=== PATIENT | female | born 1935 | race Caucasian/White ===

== ENCOUNTER 2018-05-04 17:14 | Emergency (ER) | payer OTHER ==
[2018-05-04 17:47] LABS: Absolute Monocytes 0.4 K/uL (0.1-1.3); Absolute Neutrophil 4.3 K/uL (1.8-8.0); Eosinophils % 2.7 % (0-4.4); Hematocrit 37.6 % (36.0-45.0); Lymphocytes % 17.4 % (15.3-44.8); MCH 29.3 pg (27.0-35.0); MPV 9.1 fL (7.6-11.3); Monocytes % 7.5 % (3.3-12.3); RBC Red Blood Cell Count 4.27 M/uL (3.86-4.86)
[2018-05-04] MEDS ORDERED: PHENYLEPHRINE 0.5% NOSE 15ML NAS ONE (17:49)
[2018-05-04 17:51] LABS: Protime INR 1.63
[2018-05-04] MEDS ORDERED: NA CHLORIDE 0.9% 0 ML ONE (17:58)
[2018-05-04] MEDS ORDERED: NA CHLORIDE 0.9% 500 ML ONE (17:59)
[2018-05-04 18:06] LABS: ALT/SGPT 42 U/L (12-78); AST/SGOT 51 U/L (15-37); Albumin 3.4 g/dL (3.4-5.0); Alkaline Phosphatase 122 U/L (45-117); BUN Blood Urea Nitrogen 16 mg/dL (7-18); Bicarbonate 28 mmol/L (21-32); Bilirubin Direct 0.2 mg/dL (0-0.2); Bilirubin Total 0.4 mg/dL (0.2-1.0); Glucose Level 148 mg/dL (74-106); Magnesium 2.4 mg/dL (1.8-2.4); NT PRO-BNP 614 pg/mL (<450); Potassium 3.5 mmol/L (3.5-5.1); Protein, Total 7.8 g/dL (6.4-8.2); Sodium Level 140 mmol/L (136-145); Troponin I < 0.02 ng/mL (0.0-0.045)
--- NOTE | 2018-05-04 18:27 | RAD REPORT ---
EXAM DESCRIPTION: RAD - Chest Single View - 05/04/2018 6:17 pm CLINICAL HISTORY: nose bleed Chest pain. COMPARISON: No comparisons FINDINGS: Portable technique limits examination quality. Mild interstitial pulmonary edema noted. The heart is moderately enlarged in size. No displaced fract ures. IMPRESSION: Mild CHF suspected.
--- NOTE | 2018-05-04 19:20 | ER ---
Nurse's Notes [facility] Name: Ashtyn Nichole Age: 82 yrs Sex: Female : 1935 Arrival Date: 05/04/2018 Time: 17:17 Bed 26 Private MD: Diagnosis: Epistaxis Presentation: 05/04 17:18 Presenting complaint: EMS states: patient has been having nose bleeds on and off all kr2 day, there was no trauma, blood pressure has been elevated. She takes Warfarin and this happened one year ago and she had to be transferred to [facility]. Transition of care: [facility]. Onset of symptoms was May 04, 2018. Risk Assessment: Do you want to hurt yourself or someone else? Patient reports no desire to harm self or others. Initial Sepsis Screen: Does the patient meet any 2 criteria? No. Patient's initial sepsis screen is negative. Does the patient have a suspected source of infection? No. Patient's initial sepsis screen is negative. Care prior to arrival: pressure applied to bridge of nose, bleeding continues. 17:18 Method Of Arrival: EMS: [facility] kr2 17:18 Acuity: CARL 3 kr2 Triage Assessment: 17:32 General: Appears in no apparent distress. uncomfortable, well groomed, well developed, kr2 well nourished, Behavior is calm, cooperative, appropriate for age. Pain: Denies pain. Historical: - Allergies: 17:32 No Known Allergies; kr2 - Home Meds: 17:32 amiodarone 200 mg Oral tab 1 tab 2 times per day [Active]; idjopre-xzcwhewwl-iauh oral kr2 tab [Active]; estradiol 0.5 mg Oral tab 1 tab once daily [Active]; fluoxetine 20 mg Oral cap 1 cap once daily [Active]; furosemide 40 mg Oral tab 1 tab once daily [Active]; hydrocodone-acetaminophen 7.5-325 mg Oral tab three times a day [Active]; metoprolol tartrate 50 mg Oral tab 1 tab 2 times per day [Active]; warfarin 3 mg Oral tab one every other day, alternationg with 1.5mg tablet [Active]; alprazolam 0.5 mg Oral tab three times a day [Active]; meclizine 25 mg Oral tab 1 tab 3 times per day [Active]; - PMHx: 17:32 Hypertension; Atrial Fib; Depression; Anxiety; Arthritis; CHF; kr2 - PSHx: 17:32 Hysterectomy; kr2 - Immunization history:: Adult Immunizations up to date. - Social history:: Smoking status: Patient/guardian denies using tobacco. - Ebola Screening: : No symptoms or risks identified at this time. Screenin:36 Abuse screen: Denies threats or abuse. Denies injuries from another. Nutritional kr2 screening: No deficits noted. Tuberculosis screening: No symptoms or risk factors identified. Fall Risk Ambulatory Aid- Crutches/Cane/Walker (15 pts). Assessment: 17:57 General: Appears in no apparent distress. comfortable, Behavior is calm, cooperative. rv Pain: Denies pain. Neuro: Level of Consciousness is awake, alert, obeys commands, Oriented to person, place, time, situation. Cardiovascular: Capillary refill < 3 seconds. Respiratory: Airway is patent. GI: No signs and/or symptoms were reported involving the gastrointestinal system. : No signs and/or symptoms were reported regarding the genitourinary system. EENT: Nares with bleeding noted bilaterally. Derm: Skin is intact. Musculoskeletal: No signs and/or symptoms reported regarding the musculoskeletal system. 19:00 Reassessment: Patient appears in no apparent distress at this time. Patient and/or rv family updated on plan of care and expected duration. Pain level reassessed. Patient is alert, oriented x 3, equal unlabored respirations, skin warm/dry/pink. Bleeding controlled Patient denies pain at this time. 20:03 Reassessment: Patient appears in no apparent distress at this time. Patient and/or rv family updated on plan of care and expected duration. Pain level reassessed. Patient is alert, oriented x 3, equal unlabored respirations, skin warm/dry/pink. No further bleeding from nose. Called [facility] they are making arrangements for someone to pick patient up. Vital Signs: 17:23 BP 191 / 67; Pulse 64; Resp 90; Temp 97.9; Pulse Ox 90% on R/A; Weight 53.07 kg; Height kr2 5 ft. 5 in. (165.10 cm); Pain 0/10; 17:58 BP 139 / 57; Pulse 58; Resp 17; Pulse Ox 95% on R/A; rv 19:00 BP 148 / 70; Pulse 70; Resp 15; Pulse Ox 97% on R/A; rv 20:05 BP 156 / 64; Pulse 60; Resp 17; Pulse Ox 97% on R/A; rv 17:23 Body Mass Index 19.47 (53.07 kg, 165.10 cm) kr2 ED Course: 17:17 Patient arrived in ED. kr2 17:23 Triage completed. kr2 17:24 Lucian Vasquez PA is PHCP. cp 17:24 Brian Rossi MD is Attending Physician. cp 17:37 Arm band placed on. kr2 17:37 Patient has correct armband on for positive identification. Bed in low position. Call kr2 light in reach. Side rails up X2. cardiac monitor technician on. Pulse ox on. NIBP on. Door closed. Warm blanket given. Pillow given. Head of bed elevated. 18:10 X-ray completed. Portable x-ray completed in exam room. Patient tolerated procedure kp1 well. 18:18 Chest Single View In Process Unspecified. EDMS 18:55 Urine collected: clean catch specimen, clear, hiren colored, Amount Voided: 120mL. jp3 19:18 Vandana Cantu MD is Referral Physician. cp 20:12 No provider procedures requiring assistance completed. IV discontinued, intact, kr2 bleeding controlled, No redness/swelling at site. Pressure dressing applied. Administered Medications: 17:55 Drug: Abrahan-Synephrine [place] 0.5 % 2 sprays {Note: Administered by GISSEL Bose.} kr2 Route: Intranasal; Site: both nares; 18:25 Follow up: Response: No adverse reaction; No adverse reaction, bleeding stopped at this kr2 time 18:23 Drug: NS 0.9% 250 ml Route: IV; Rate: bolus; Site: right antecubital; kr2 19:30 Follow up: Response: No adverse reaction; IV Status: Completed infusion kr2 Outcome: 19:19 Discharge ordered by . cp 20:12 Discharged to home ambulatory, with family. kr2 20:12 Condition: good 20:12 Discharge instructions given to patient, Instructed on discharge instructions, follow up and referral plans. medication usage, Demonstrated understanding of instructions, follow-up care, medications, Prescriptions given X 1. 20:29 Patient left the ED. rv Signatures: Dispatcher [employer] EDGA Lucian Vasquez PA PA cp Poole, Kathy kp1 Adeola Obrien RN RN kr2 Landry Celeste RN RN rv Hector Tate jp3 Corrections: (The following items were deleted from the chart) 20:12 17:23 BP 191 / 67; Pulse 64bpm; Resp 90bpm; Pulse Ox 90% RA; 53.07 kg; Height 5 ft. 5 kr2 in.; BMI: 19.4; Pain 0/10; kr2 05/05 00:07 11 20:12 Discharge instructions given to patient, Instructed on discharge kr2 instructions, follow up and referral plans. medication usage, Demonstrated understanding of instructions, follow-up care, medications, Prescriptions given X 1, kr2
--- NOTE | 2018-05-04 19:20 | EDPHYS ---
Physician Documentation [facility] Name: Ashtyn Nichole Age: 82 yrs Sex: Female : 1935 Arrival Date: 05/04/2018 Time: 17:17 Bed 26 Private MD: ED Physician Brian Rossi HPI: 05/04 17:35 This 82 yrs old Female presents to ER via EMS with complaints of Nose Bleed. cp 17:35 The patient presents with a nose bleed, that is bright red, causative factors include: cp Coumadin therapy, previous HX of nosebleeds. 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 Associated signs and symptoms: Pertinent negatives: cough, fever, shortness of breath, sore throat. Severity of symptoms: in the emergency department the symptoms are unchanged despite EMS interventions. Historical: - Allergies: 17:32 No Known Allergies; kr2 - Home Meds: 17:32 amiodarone 200 mg Oral tab 1 tab 2 times per day [Active]; ljhqlul-acekyuowb-mdjx oral kr2 tab [Active]; estradiol 0.5 mg Oral tab 1 tab once daily [Active]; fluoxetine 20 mg Oral cap 1 cap once daily [Active]; furosemide 40 mg Oral tab 1 tab once daily [Active]; hydrocodone-acetaminophen 7.5-325 mg Oral tab three times a day [Active]; metoprolol tartrate 50 mg Oral tab 1 tab 2 times per day [Active]; warfarin 3 mg Oral tab one every other day, alternationg with 1.5mg tablet [Active]; alprazolam 0.5 mg Oral tab three times a day [Active]; meclizine 25 mg Oral tab 1 tab 3 times per day [Active]; - PMHx: 17:32 Hypertension; Atrial Fib; Depression; Anxiety; Arthritis; CHF; kr2 - PSHx: 17:32 Hysterectomy; kr2 - Immunization history:: Adult Immunizations up to date. - Social history:: Smoking status: Patient/guardian denies using tobacco. - Ebola Screening: : No symptoms or risks identified at this time. ROS: 17:40 Constitutional: Negative for body aches, chills, fever, poor PO intake. cp 17:40 ENT: Positive for nose bleed, Negative for drainage from ear(s), ear pain, difficulty cp swallowing, difficulty handling secretions. 17:40 Cardiovascular: Negative for chest pain, edema, palpitations. 17:40 Respiratory: Negative for cough, shortness of breath, wheezing. 17:40 Abdomen/GI: Negative for abdominal pain, nausea, vomiting, and diarrhea. 17:40 Skin: Negative for cellulitis, rash. 17:40 All other systems are negative. Exam: 17:45 Constitutional: The patient appears in no acute distress, alert, awake, non-toxic, well cp developed, well nourished. 17:45 Head/Face: Normocephalic, atraumatic. cp 17:45 Eyes: Periorbital structures: appear normal, Conjunctiva: normal, no exudate, no injection, Sclera: no appreciated abnormality, Lids and lashes: appear normal, bilaterally. 17:45 ENT: External ear(s): are unremarkable, Ear canal(s): are normal, clear, TM's: dullness, bilaterally, Nose: External nose: no obvious acute abnormality, bleeding, is seen from the right nare, and is moderate, no septal hematoma is appreciated, clotted blood, in left nare, Mouth: Lips: moist, Oral mucosa: pink and intact, moist, Posterior pharynx: Airway: no evidence of obstruction, patent. 17:45 Neck: ROM/movement: is normal, is supple, without pain, no range of motions limitations, no meningismus, no nuchal rigidity, Lymph nodes: no appreciated lymphadenopathy. 17:45 Chest/axilla: Inspection: normal, Palpation: is normal, no crepitus, no tenderness. 17:45 Cardiovascular: Rate: normal, Rhythm: regular. 17:45 Respiratory: the patient does not display signs of respiratory distress, Respirations: normal, no use of accessory muscles, no retractions, no splinting, no tachypnea, labored breathing, is not present, Breath sounds: are clear throughout, no decreased breath sounds, no stridor, no wheezing. 17:45 Abdomen/GI: Inspection: abdomen appears normal, Palpation: abdomen is soft and non-tender, in all quadrants. 17:45 Skin: cellulitis, is not appreciated, no rash present. 17:45 Neuro: Orientation: to person, place \T\ time. Mentation: is normal, Cerebellar function: is grossly normal, Motor: moves all fours, strength is normal, Sensation: is normal. Vital Signs: 17:23 BP 191 / 67; Pulse 64; Resp 90; Temp 97.9; Pulse Ox 90% on R/A; Weight 53.07 kg; Height kr2 5 ft. 5 in. (165.10 cm); Pain 0/10; 17:58 BP 139 / 57; Pulse 58; Resp 17; Pulse Ox 95% on R/A; rv 19:00 BP 148 / 70; Pulse 70; Resp 15; Pulse Ox 97% on R/A; rv 20:05 BP 156 / 64; Pulse 60; Resp 17; Pulse Ox 97% on R/A; rv 17:23 Body Mass Index 19.47 (53.07 kg, 165.10 cm) kr2 MDM: 17:24 Patient medically screened. cp 18:00 Differential diagnosis: foreign body - resolved, foreign body - unresolved, trauma, cp epistaxis r/t trauma, spontaneous epistaxis. 19:17 Data reviewed: vital signs, nurses notes, lab test result(s), EKG, radiologic studies, cp plain films. 19:17 Counseling: I had a detailed discussion with the patient and/or guardian regarding: the cp historical points, exam findings, and any diagnostic results supporting the discharge/admit diagnosis, lab results, the need for outpatient follow up, an ENT specialist, to return to the emergency department if symptoms worsen or persist or if there are any questions or concerns that arise at home. Response to treatment: the patient's symptoms have markedly improved after treatment, VSS. Labs reviewed and stable. Epistaxis resolved with nasal spray and pressure. Will discharge to home for continued monitoring. 05/04 17:44 Order name: Basic Metabolic Panel; Complete Time: 18:10 EDMS 05/04 18:11 Interpretation: Normal except: GLUC 148; GFR 53; CA 8.3. cp 05/04 17:44 Order name: Liver (Hepatic) Function; Complete Time: 18:10 EDMS 05/04 18:11 Interpretation: Normal except: AST 51; ALK 122; GLOB 4.4; A/G 0.8. cp 05/04 17:44 Order name: Troponin I; Complete Time: 18:10 EDMS 05/04 17:44 Order name: NT PRO-BNP; Complete Time: 18:10 EDMS 05/04 18:24 Interpretation: Abnormal: NT PRO-BNP 614. 05/04 17:44 Order name: Magnesium; Complete Time: 18:10 EDMS 05/04 17:44 Order name: CBC with Automated Diff; Complete Time: 18:10 EDMS 05/04 18:12 Interpretation: Normal except: RDW 16.5. 05/04 17:44 Order name: Protime (+INR); Complete Time: 18:10 EDMS 05/04 18:10 Interpretation: Abnormal: PT 19.3. 05/04 17:33 Order name: EKG; Complete Time: 18:18 05/04 17:33 Order name: Cardiac monitoring; Complete Time: 17:49 05/04 17:33 Order name: EKG - Nurse/Tech; Complete Time: 18:23 05/04 17:33 Order name: IV Saline Lock; Complete Time: 17:49 05/04 17:33 Order name: Labs collected and sent; Complete Time: 17:49 05/04 17:33 Order name: O2 Per Protocol; Complete Time: 17:49 05/04 17:33 Order name: O2 Sat Monitoring; Complete Time: 17:49 05/04 17:38 Order name: Chest Single View; Complete Time: 18:38 EDOR 05/04 18:38 Interpretation: Report reviewed. 05/04 19:13 Order name: Urine Dipstick--Ancillary (enter results) [facility] 05/04 19:13 Order name: Urine --Ancillary (enter results) [facility] Administered Medications: 17:55 Drug: Abrahan-Synephrine [place] 0.5 % 2 sprays {Note: Administered by GISSEL Bose.} kr2 Route: Intranasal; Site: both nares; 18:25 Follow up: Response: No adverse reaction; No adverse reaction, bleeding stopped at this kr2 time 18:23 Drug: NS 0.9% 250 ml Route: IV; Rate: bolus; Site: right antecubital; kr2 19:30 Follow up: Response: No adverse reaction; IV Status: Completed infusion kr2 Disposition: 20:30 Chart complete. cp Disposition: 05/04/18 19:19 Discharged to Home. Impression: Epistaxis. - Condition is Stable. - Discharge Instructions: Nosebleed, Adult. - Prescriptions for Afrin (oxymetazoline) 0.05 % Nasal Aerosol, Poca - spray 2 sprays by INTRANASAL route every 4 hours for 2 days; 1 Container. - Medication Reconciliation Form, Thank You Letter, Antibiotic Education, Prescription Opioid Use form. - Follow up: Vandana Cantu MD; When: Tomorrow; Reason: Recheck today's complaints. - Problem is new. - Symptoms have improved. Addendum: 05/07/2018 06:05 Co-signature as Attending Physician, Brian Rossi MD. m a2 Signatures: Dispatcher [employer] EDMS Lucian Vasquez PA PA cp Adeola Obrien RN RN kr2 Brian Rossi MD MD ma2 Landry Celeste RN RN rv Corrections: (The following items were deleted from the chart) 05/04 18:11 18:11 Normal except: GLUC 148; GFR 53. cp cp 18:24 18:18 Chest Single View+RAD.RAD.BRZ ordered. EDMS EDMS 20:17 18:17 BASIC METABOLIC PANEL+C.LAB.BRZ ordered. EDMS EDMS 20:17 18:17 HEPATIC FUNCTION+C.LAB.BRZ ordered. EDMS EDMS 20:17 18:18 MAGNESIUM+C.LAB.BRZ ordered. EDMS EDMS 20:17 18:18 PROBNP+C.LAB.BRZ ordered. EDMS EDMS 20:17 18:18 TROPONIN (EMERG DEPT USE ONLY)+C.LAB.BRZ ordered. EDMS EDMS 20:19 18:17 CBC+H.LAB.BRZ ordered. EDMS EDMS 20:19 18:18 PROTIME (+INR)+COAG.LAB.BRZ ordered. EDMS EDMS 20:29 19:19 05/04/2018 19:19 Discharged to Home. Impression: Epistaxis. Condition is Stable. rv Forms are Medication Reconciliation Form, Thank You Letter, Antibiotic Education, Prescription Opioid Use. Follow up: Vandana Cantu; When: Tomorrow; Reason: Recheck today's complaints. Problem is new. Symptoms have improved. cp
[2018-05-04 20:29] LABS: Urine Blood NEGATIVE (NEG); Urine Glucose NEGATIVE (NEG); Urine Protein NEGATIVE (NEG); Urine Specific Gravity 1.015 (1.005-1.030); Urine pH 7.5 (5.0-7.0)
--- NOTE | 2018-05-05 06:16 | EKG ---
Test Date: 2018-05-04 Test Time: 18:14:44 Small Products Assembler: VINI MEASUREMENT RESULTS: Intervals: Rate: 50 RI: 216 QRSD: 76 QT: 518 QTc: 472 Park: P: 63 RI: 216 QRS: -1 T: 30 INTERPRETIVE STATEMENTS: Sinus bradycardia with 1st degree AV block LVH with secondary repolarization changes Prolonged QT Abnormal ECG Compared to ECG 08/06/1993 15:31:00 First degree AV block now present Left ventricular hypertrophy now present T-wave abnormality now present Prolonged QT interval now present Sinus rhythm no longer present Electronically Signed On 05-05-18 06:16:33 ST[address] LIGHT MECHANIC by Dale Ferguson
== END 2018-05-04 20:29 | disposition home or self-care (01) ==
LOC: ER 17:14
DX: R04.0 Epistaxis (principal); I10 Essential (primary) hypertension; I48.91 Unspecified atrial fibrillation; F32.9 Major depressive disorder, single episode, unspecified; I50.9 Heart failure, unspecified; Z79.01 Long term (current) use of anticoagulants
CPT/HCPCS: 36415; 71045; 80048; 80076; 81003; 81025; 83735; 83880; 84484; 85025; 85610; 93005; 96360; 96365; 99284

== ENCOUNTER 2018-08-27 10:30 | Inpatient (IN) | payer OTHER ==
--- OUTSIDE RECORDS SUMMARY | 2018-08-27 10:32 | XMS REPORT ---
:1935 [facility] Address [address] [place] [address] Dr. Upton[address] [place] [id number] Care Team Providers Name Role Phone Unavailable Unavailable Unavailable Problems This patient has no known problems. Allergies, Adverse Reactions, Alerts This patient has no known allergies or adverse reactions. Medications This patient has no known medications.
--- NOTE | 2018-08-27 11:10 | RAD REPORT ---
EXAM DESCRIPTION: CT - Head Brain Wo Cont - 08/27/2018 11:00 am CLINICAL HISTORY: Alteration of awareness/confusion COMPARISON: None TECHNIQUE: Computed axial tomography of the head was obtained. IV contrast was not requested. All CT scans are performed using dose optimization technique as appropriate and may include automated exposure control or mA/KV adjustment according to patient size. FINDINGS: An intracranial bleed is not seen . The ventricles are normal in caliber. No extra-axial fluid collection is noted. Moderate low-density areas within periventricular, deep and subcortical white matter likely represent ischemic changes secondary to small vessel disease. Fluid within the sinuses/ mastoids is not seen. IMPRESSION: No acute intracranial abnormality is seen. If patient's symptoms persist MRI of the bra in would be recommended.
--- NOTE | 2018-08-27 11:34 | RAD REPORT ---
EXAM DESCRIPTION: [place] Single View08/27/2018 11:16 am CLINICAL HISTORY: Chest pain COMPARISON: April 2018 FINDINGS: Bilateral pulmonary opacities have partially resolved. The heart is moderately enlarged IMPRESSION: Partial resolution in bilateral pulmonary opacities. Mild residual interstitial lung opa cities may indicate mild interstitial pulmonary edema.
--- NOTE | 2018-08-27 11:35 | RAD REPORT ---
EXAM DESCRIPTION: RAD - Knee Right 3 View - 08/27/2018 11:16 am CLINICAL HISTORY: Right knee pain FINDINGS: No fracture or dislocation is seen.
--- NOTE | 2018-08-27 11:36 | RAD REPORT ---
EXAM DESCRIPTION: RAD - Knee Left 3 View - 08/27/2018 11:16 am CLINICAL HISTORY: Left knee pain FINDINGS: No fracture or dislocation is seen.
[2018-08-27 11:44] LABS: Absolute Lymphocytes (CBC) 0.9 K/uL (0.7-4.9); Absolute Monocytes 0.7 K/uL (0.1-1.3); Absolute Neutrophil 7.6 K/uL (1.8-8.0); Basophils % 0.6 % (0-1.3); Eosinophils % 0.3 % (0-4.4); Hematocrit 38.1 % (36.0-45.0); Lymphocytes % 9.9 % (15.3-44.8); MPV 8.7 fL (7.6-11.3); Monocytes % 7.1 % (3.3-12.3); RBC Red Blood Cell Count 4.93 M/uL (3.86-4.86)
[2018-08-27 11:55] LABS: Protime INR 4.38
[2018-08-27 12:02] LABS: ALT/SGPT 93 U/L (12-78); AST/SGOT 118 U/L (15-37); Alkaline Phosphatase 173 U/L (45-117); BUN Blood Urea Nitrogen 19 mg/dL (7-18); Bicarbonate 31 mmol/L (21-32); Bilirubin Direct 0.3 mg/dL (0-0.2); Bilirubin Total 0.6 mg/dL (0.2-1.0); Glucose Level 111 mg/dL (74-106); Magnesium 2.1 mg/dL (1.8-2.4); NT PRO-BNP 640 pg/mL (<450); Potassium 3.1 mmol/L (3.5-5.1); Protein, Total 7.6 g/dL (6.4-8.2); Sodium Level 137 mmol/L (136-145); Troponin (Emerg Dept Use Only) < 0.02 ng/mL (0.0-0.045)
[2018-08-27 12:21] LABS: Hypersegmented Neutrophils PRESENT; Platelet Estimate INCR; Urine White Blood Cell Casts SCAN
[2018-08-27 12:22] LABS: Anisocytosis 2+; Blood Morphology Comment NOTED (NOT SEEN); Platelets, Giant FEW; Teardrop Cell 1+
[2018-08-27 13:18] LABS: Urine Bacteria <20 /HPF (<20); Urine RBC <5 /HPF (NONE SEEN)
[2018-08-27 13:19] LABS: Urine Culture Reflex Order NOT NEEDED
--- NOTE | 2018-08-27 14:11 | ER ---
Nurse's Notes [facility] Name: Ashtyn Nichole Age: 82 yrs Sex: Female : 1935 Arrival Date: 08/27/2018 Time: 10:38 Bed 18 Private MD: Diagnosis: Repeated falls;Altered mental status, unspecified;Abnormal coagulation profile-Supratherapeutic INR Presentation: 08/27 10:38 Presenting complaint: EMS states: "pt slid and fell on her knees yesterday and today aa5 she slid again and fell on her bottom". Pt states "I was just walking to the restroom with my walker and I slipped and fell". Negative LOC, negative head injury. Pt's only c/o is chronic lower back pain. Pt is being treated for recent UTI with Bactrim. EMS also reports [facility] staff reported increased confusion x 2 days. Pt currently alert and oriented x person and place. Care prior to arrival: glucose check was within normal limit. Mechanism of Injury: Fall from standing position. Trauma event details: Injury occurred in the [facility], Injury occurred: at home. Injury occurred: August 27, 2018. 10:38 Acuity: CARL 3 aa5 10:38 Method Of Arrival: EMS: [facility] aa5 10:38 Transition of care: patient was received from another setting of care (long-term care [facility]), [facility]. Onset of symptoms was August 27, 2018. Risk Assessment: Do you want to hurt yourself or someone else? Unable to obtain. Initial Sepsis Screen: Does the patient meet any 2 criteria? No. Patient's initial sepsis screen is negative. Does the patient have a suspected source of infection? Yes: Other: UTI. Trauma Activation: Not Applicable Physician: ED Physician; Name: ; Notified At: ; Arrived At: Physician: General Surgeon; Name: ; Notified At: ; Arrived At: Physician: Radiology; Name: ; Notified At: ; Arrived At: Physician: Respiratory; Name: ; Notified At: ; Arrived At: Physician: Lab; Name: ; Notified At: ; Arrived At: Historical: - Allergies: 10:38 No Known Allergies; aa5 - Home Meds: 10:38 amiodarone 200 mg Oral tab 1 tab 2 times per day [Active]; lfklael-jayeyjgtz-fucw oral aa5 oral twice a day [Active]; estradiol 0.5 mg Oral tab 1 tab once daily [Active]; fluoxetine 20 mg oral tab once daily [Active]; furosemide 40 mg oral tab once daily [Active]; hydrocodone-acetaminophen 7.5-325 mg Oral tab 4 times a day [Active]; metoprolol tartrate 50 mg Oral tab 2 times per day [Active]; Bactrim DS 800-160 mg Oral tab 2 times per day [Active]; warfarin 1 mg oral tab every other day and alternate with 2mg every other day [Active]; alprazolam 0.5 mg Oral tab twice a day [Active]; meclizine 25 mg Oral tab 3 times per day [Active]; - PMHx: 10:38 Anxiety; Arthritis; Atrial Fib; CHF; Depression; Hypertension; aa5 - PSHx: 10:38 Hysterectomy; aa5 - Immunization history:: Adult Immunizations unknown. - Social history:: Smoking status: Patient/guardian denies using tobacco. - Immunization history: Last tetanus immunization: unknown. - Ebola Screening: : No symptoms or risks identified at this time. Screenin:45 Abuse screen: No signs of abuse noted. aa5 10:45 Nutritional screening: No deficits noted. Tuberculosis screening: No symptoms or risk aa5 factors identified. Fall Risk Fall in past 12 months (25 points). Secondary diagnosis (15 points) dementia, Mental Status- Overestimates/Forgets Limitations (15 pts.). Total Salmon Fall Scale indicates High Risk Score (45 or more points). Fall prevention measures have been instituted. Side Rails Up X 2 Placed Close to Nursing Station. Primary Survey: 10:38 NO uncontrolled hemorrhage observed. A: The patient is alert. Breathing/Chest: aa5 Respiratory pattern: regular, Respiratory effort: spontaneous, unlabored. Circulation: Skin color: pink. Disability Alert. Exposure/Environment: A warming method has been applied: A warm blanket has been provided to the patient. 11:10 Reassessment Airway Airway Patent Breathing/Chest Respiratory pattern Regular aa5 Respiratory effort Spontaneous Unlabored Circulation Color [place] Disability Alert. Secondary Survey: 10:38 HEENT: No deficits noted. Gastrointestinal: No deficits noted. : recent UTI. aa5 Musculoskeletal: Range of motion: intact in all extremities. Assessment: 10:38 General: Appears comfortable, Behavior is calm, cooperative. Pain: Complains of pain in aa5 lower back Pain currently is 7 out of 10 on a pain scale. Quality of pain is described as aching, Pain began is chronic Is continuous. Neuro: Level of Consciousness is awake, obeys commands, confused, Oriented to person, place, Electro Plater are equal bilaterally Moves all extremities. Speech is normal, Facial symmetry appears normal, Pupils are PERRLA, Denies dizziness, headache. EENT: No signs and/or symptoms were reported regarding the EENT system. Cardiovascular: Heart tones S1 S2 present Rhythm is regular. Respiratory: Airway is patent Respiratory effort is even, unlabored, Respiratory pattern is regular, symmetrical, Breath sounds are clear bilaterally. GI: Abdomen is flat, non-distended, Bowel sounds present X 4 quads. Abd is soft and non tender X 4 quads. : Recent UTI. Pt states "It doesn't burn when I pee but it's just a dull ache when I pee". Derm: Skin is pink, warm \\T\\ dry. Small scab noted to top of head. Musculoskeletal: Range of motion: intact in all extremities. 10:45 Reassessment: Pt's care will be continued by Wilbert Renae LVN . aa5 11:49 Reassessment: Patient appears in no apparent distress at this time. Patient and/or em family updated on plan of care and expected duration. Pain level reassessed. alert and oriented x self and year, denies pain at this time, denies dizziness, denies pain at this time. 12:45 Reassessment: Patient appears in no apparent distress at this time. Patient and/or em family updated on plan of care and expected duration. Pain level reassessed. pending results. 14:10 Reassessment: Patient appears in no apparent distress at this time. Patient and/or em family updated on plan of care and expected duration. Pain level reassessed. alert and oriented x self and year, denies pain at this time, denies dizziness, denies pain at this time. 14:40 Reassessment: granddaughter at bedside, contact info: Devi - [phone]. em 15:09 Reassessment: Patient appears in no apparent distress at this time. Dr. Zhou at em bedside. 16:24 Reassessment: restless and anxious, granddaughter reports she is acting more confused em than normal, provider notified, new medication orders received. 17:30 Reassessment: Patient appears in no apparent distress at this time. Patient and/or em family updated on plan of care and expected duration. Pain level reassessed. pt resting comfortably in bed with TV on. Vital Signs: 10:38 BP 158 / 50; Pulse 50; Resp 16 S; Temp 97.5(TE); Pulse Ox 97% on R/A; Pain 7/10; aa5 12:49 BP 167 / 65; Pulse 51; Resp 16; Pulse Ox 95% on R/A; em 13:00 BP 163 / 61; Pulse 60; Resp 18; Pulse Ox 95% on R/A; em 15:20 BP 159 / 54; Pulse 58; Resp 16; Pulse Ox 100% on R/A; Pain 0/10; em 16:46 BP 161 / 64; Pulse 55; Resp 18; Pulse Ox 99% on 2 lpm NC; em 18:16 BP 161 / 59; Pulse 61; Resp 18; Pulse Ox 97% on 2 lpm NC; Pain 0/10; em [place] Coma Score: 10:38 Eye Response: spontaneous(4). Verbal Response: confused(4). Motor Response: obeys aa5 commands(6). Total: 14. Trauma Score (Adult): 10:38 Eye Response: spontaneous(1); Verbal Response: confused(1); Motor Response: obeys aa5 commands(2); Systolic BP: > 89 mm Hg(4); Respiratory Rate: 10 to 29 per min(4); Ariadne Score: 14; Trauma Score: 12 ED Course: 10:38 Patient arrived in ED. aa5 10:38 Brenda Ferrer, RN is Primary Nurse. aa5 10:38 Arm band placed on. aa5 10:38 Patient has correct armband on for positive identification. aa5 10:38 Patient maintains SpO2 saturation greater than 95% on room air. Thermoregulation: warm aa5 blanket given to patient. 10:39 Ino Fairchild NP is PHCP. pm1 10:39 Jasvir Shen MD is Attending Physician. pm1 10:42 Triage completed. aa5 10:59 CT Head Brain wo Cont In Process Unspecified. EDMS 11:00 CT completed. Patient tolerated procedure well. Patient moved to CT via stretcher. vr Patient moved to radiology via stretcher. 11:15 Knee Right 3 View XRAY In Process Unspecified. EDMS 11:15 Knee Left 3 View XRAY In Process Unspecified. EDMS 11:15 XRAY Chest (1 view) In Process Unspecified. EDMS 11:40 Initial lab(s) drawn, by me, sent to lab. EKG done, by ED staff. Inserted saline lock: em 22 gauge in right forearm, using aseptic technique. Blood collected. 11:51 Urine collected: clean catch specimen, cloudy, hiren colored. jb1 14:08 Petty Zhou MD is Hospitalizing Provider. pm1 18:15 No provider procedures requiring assistance completed. Patient admitted, IV remains in em place. Administered Medications: 17:53 Drug: Rocephin 1 grams Route: IV; Rate: calculated rate; Site: right forearm; aa5 Output: 18:16 Urine: 200ml (Straight Cath); Total: 200ml. em Outcome: 14:10 Decision to Hospitalize by Provider. pm1 18:15 Admitted to Tele accompanied by nataly, via stretcher, room 402, with oxygen, with chart, em Report called to NARDA Ye 18:15 Condition: good 18:15 Instructed on the need for admit, Demonstrated understanding of instructions. 18:17 Patient's length of stay in the Emergency Department was greater than 2 hours. no bed em availability Patient's length of stay extended due to 18:19 Patient left the ED. em Signatures: Dispatcher [employer] EDOK Kodak Hansen jb1 Wilbert Renae, ESCROW CLERK ESCROW CLERK em Brenda Ferrer RN RN Sarai Almeida Patrick, NP ADJUNCT LECTURER pm1 Corrections: (The following items were deleted from the chart) 11:40 10:38 Cardiovascular: Heart tones S1 S2 present Rhythm is aa5 aa5 11:57 10:38 Derm: Skin is pink, warm \\T\\ dry. aa5 aa5 14:19 11:49 Reassessment: Patient appears in no apparent distress at this time. Patient em and/or family updated on plan of care and expected duration. Pain level reassessed. alert and oriented x self and year, denies pain at this time, denies dizziness em 18:17 18:16 BP 161 / 59; Pulse 61bpm; Resp 18bpm; Pulse Ox 97% RA; Pain 0/10; em em
--- NOTE | 2018-08-27 14:11 | EDPHYS ---
Physician Documentation [facility] Name: Ashtyn Nichole Age: 82 yrs Sex: Female : 1935 Arrival Date: 08/27/2018 Time: 10:38 Bed 18 Private MD: ED Physician Jasvir Shen HPI: 08/27 12:00 This 82 yrs old Female presents to ER via EMS with complaints of Fall Injury. pm1 12:00 Details of fall: The patient fell from an upright position, while walking, from seated pm1 position, out of a chair. Onset: The symptoms/episode began/occurred yesterday. Associated injuries: The patient sustained left knee and right knee. Severity of symptoms:. The patient has been recently seen by a physician: the patient's primary care provider, with different complaint(s), and apparently was diagnosed with UTI and prescribed Bactrim. Patient from [facility] assisted living. Patient with fall injury yesterday. Walking with her walker and fell on both her knees. Patient has been able to walk since fall yesterday. Walked to EMS stretcher [facility]. Today patient was sitting on her walker and slide down and fell on her buttocks. Patient denies any headache, head injury, or neck pain. According to staff, patient is more altered than her baseline dementia. Patient is currently taking antibiotics for a UTI. 12:00 Baseline dementia: alert to self only. pm1 Historical: - Allergies: 10:38 No Known Allergies; aa5 - Home Meds: 10:38 amiodarone 200 mg Oral tab 1 tab 2 times per day [Active]; hwlmqvw-ktadkakyv-ygpa oral aa5 oral twice a day [Active]; estradiol 0.5 mg Oral tab 1 tab once daily [Active]; fluoxetine 20 mg oral tab once daily [Active]; furosemide 40 mg oral tab once daily [Active]; hydrocodone-acetaminophen 7.5-325 mg Oral tab 4 times a day [Active]; metoprolol tartrate 50 mg Oral tab 2 times per day [Active]; Bactrim DS 800-160 mg Oral tab 2 times per day [Active]; warfarin 1 mg oral tab every other day and alternate with 2mg every other day [Active]; alprazolam 0.5 mg Oral tab twice a day [Active]; meclizine 25 mg Oral tab 3 times per day [Active]; - PMHx: 10:38 Anxiety; Arthritis; Atrial Fib; CHF; Depression; Hypertension; aa5 - PSHx: 10:38 Hysterectomy; aa5 - Immunization history:: Adult Immunizations unknown. - Social history:: Smoking status: Patient/guardian denies using tobacco. - Immunization history: Last tetanus immunization: unknown. - Ebola Screening: : No symptoms or risks identified at this time. ROS: 12:00 Constitutional: Negative for fever, chills, and weight loss, Eyes: Negative for injury, pm1 pain, redness, and discharge, ENT: Negative for injury, pain, and discharge, Neck: Negative for injury, pain, and swelling, Cardiovascular: Negative for chest pain, palpitations, and edema, Respiratory: Negative for shortness of breath, cough, wheezing, and pleuritic chest pain, Abdomen/GI: Negative for abdominal pain, nausea, vomiting, diarrhea, and constipation, Back: Negative for injury and pain, : Negative for injury, bleeding, discharge, and swelling, MS/Extremity: Negative for injury and deformity, Skin: Negative for injury, rash, and discoloration. 12:00 Neuro: Positive for altered mental status, Negative for gait disturbance, headache, weakness. Exam: 12:00 Constitutional: This is a well developed, well nourished patient who is awake, alert, pm1 and in no acute distress. Head/Face: Normocephalic, atraumatic. Eyes: Pupils equal round and reactive to light, extra-ocular motions intact. Lids and lashes normal. Conjunctiva and sclera are non-icteric and not injected. Cornea within normal limits. Periorbital areas with no swelling, redness, or edema. ENT: Nares patent. No nasal discharge, no septal abnormalities noted. Tympanic membranes are normal and external auditory canals are clear. Oropharynx with no redness, swelling, or masses, exudates, or evidence of obstruction, uvula midline. Mucous membranes moist. Neck: Trachea midline, no thyromegaly or masses palpated, and no cervical lymphadenopathy. Supple, full range of motion without nuchal rigidity, or vertebral point tenderness. No Meningismus. Chest/axilla: Normal chest wall appearance and motion. Nontender with no deformity. No lesions are appreciated. Cardiovascular: Regular rate and rhythm with a normal S1 and S2. No gallops, murmurs, or rubs. Normal PMI, no JVD. No pulse deficits. Respiratory: Lungs have equal breath sounds bilaterally, clear to auscultation and percussion. No rales, rhonchi or wheezes noted. No increased work of breathing, no retractions or nasal flaring. Abdomen/GI: Soft, non-tender, with normal bowel sounds. No distension or tympany. No guarding or rebound. No evidence of tenderness throughout. Back: No spinal tenderness. No costovertebral tenderness. Full range of motion. 12:00 Musculoskeletal/extremity: Extremities: grossly normal except: noted in the right knee: contusion, Circulation is intact in all extremities. 12:00 Skin: Appearance: normal except for affected area, injury, contusion(s), that are superficial, of the right knee. 12:00 Neuro: Orientation: to person, Mentation: able to follow commands, confused, Motor: moves all fours. Vital Signs: 10:38 BP 158 / 50; Pulse 50; Resp 16 S; Temp 97.5(TE); Pulse Ox 97% on R/A; Pain 7/10; aa5 12:49 BP 167 / 65; Pulse 51; Resp 16; Pulse Ox 95% on R/A; em 13:00 BP 163 / 61; Pulse 60; Resp 18; Pulse Ox 95% on R/A; em 15:20 BP 159 / 54; Pulse 58; Resp 16; Pulse Ox 100% on R/A; Pain 0/10; em 16:46 BP 161 / 64; Pulse 55; Resp 18; Pulse Ox 99% on 2 lpm NC; em 18:16 BP 161 / 59; Pulse 61; Resp 18; Pulse Ox 97% on 2 lpm NC; Pain 0/10; em [place] Coma Score: 10:38 Eye Response: spontaneous(4). Verbal Response: confused(4). Motor Response: obeys aa5 commands(6). Total: 14. Trauma Score (Adult): 10:38 Eye Response: spontaneous(1); Verbal Response: confused(1); Motor Response: obeys aa5 commands(2); Systolic BP: > 89 mm Hg(4); Respiratory Rate: 10 to 29 per min(4); Ariadne Score: 14; Trauma Score: 12 MDM: 10:39 Patient medically screened. pm1 14:07 Data reviewed: vital signs. Data interpreted: Pulse oximetry: on room air is 95 %. pm1 Interpretation: normal. Counseling: I had a detailed discussion with the patient and/or guardian regarding: the historical points, exam findings, and any diagnostic results supporting the discharge/admit diagnosis, lab results, radiology results, the need for further work-up and treatment in the hospital. 08/27 10:47 Order name: Urine Microscopic Only; Complete Time: 13:24 pm1 08/27 10:47 Order name: Basic Metabolic Panel; Complete Time: 12:44 pm1 08/27 10:47 Order name: CBC with Diff; Complete Time: 12:44 pm1 08/27 10:47 Order name: LFT's; Complete Time: 12:44 pm1 08/27 10:47 Order name: Magnesium; Complete Time: 12:44 pm1 08/27 10:47 Order name: NT PRO-BNP; Complete Time: 12:44 pm1 08/27 10:47 Order name: Knee Right 3 View XRAY; Complete Time: 11:39 pm1 08/27 10:47 Order name: Knee Left 3 View XRAY; Complete Time: 11:39 pm1 08/27 10:47 Order name: CT Head Brain wo Cont; Complete Time: 11:39 pm1 08/27 10:47 Order name: PT-INR; Complete Time: 11:59 pm1 08/27 10:47 Order name: Troponin (emerg Dept Use Only); Complete Time: 12:44 pm1 08/27 10:47 Order name: Procalcitonin; Complete Time: 12:44 pm1 08/27 11:46 Order name: Urine Dipstick--Ancillary (enter results); Complete Time: 16:28 eb 08/27 11:48 Order name: CBC Smear Scan; Complete Time: 12:44 EDMS 08/27 10:47 Order name: Urine Dipstick-Ancillary (obtain specimen); Complete Time: 11:47 pm1 08/27 10:47 Order name: Straight Cath - Urine; Complete Time: 11:47 pm1 08/27 10:47 Order name: XRAY Chest (1 view); Complete Time: 11:39 pm1 08/27 10:47 Order name: EKG; Complete Time: 10:48 pm1 08/27 10:47 Order name: Cardiac monitoring; Complete Time: 11:48 pm1 08/27 10:47 Order name: EKG - Nurse/Tech; Complete Time: 11:48 pm1 08/27 10:47 Order name: IV Saline Lock; Complete Time: 11:48 pm1 08/27 10:47 Order name: Labs collected and sent; Complete Time: 11:47 pm1 08/27 10:47 Order name: O2 Per Protocol; Complete Time: 11:48 pm1 08/27 10:47 Order name: O2 Sat Monitoring; Complete Time: 11:48 pm1 08/27 15:13 Order name: Diet Heart Healthy; Complete Time: 15:13 em Administered Medications: 17:53 Drug: Rocephin 1 grams Route: IV; Rate: calculated rate; Site: right forearm; aa5 Disposition: 18:58 Co-signature as Attending Physician, Jasvir Shen MD. rn Disposition: 08/27/18 14:10 Hospitalization ordered by Petty Zhou for Observation. Preliminary diagnosis are Altered mental status, unspecified, Repeated falls, Abnormal coagulation profile - Supratherapeutic INR. - Bed requested for Telemetry/MedSurg (observation). - Status is Observation. em - Condition is Stable. - Problem is new. - Symptoms have improved. UTI on Admission? No Signatures: Dispatcher [employer] Siobhan Nguyen RN RN dw Wilbert Renae, IMPROVEMENT NURSE IMPROVEMENT NURSE em Jasvir Shen MD MD rn Calderon, Audri, RN RN aa5 Ino Fairchild, WATER RESOURCE CONSULTANT WATER RESOURCE CONSULTANT pm1 Corrections: (The following items were deleted from the chart) 17:59 14:10 Hospitalization Ordered by Petty Zhou MD for Observation. Preliminary diagnosis dw is Altered mental status, unspecifiedRepeated falls; Abnormal coagulation profile - Supratherapeutic INR. Bed requested for Telemetry/MedSurg (observation). Status is Observation. Condition is Stable. Problem is new. Symptoms have improved. UTI on Admission? No. pm1 18:19 17:59 08/27/2018 14:10 Hospitalization Ordered by Petty Zhou MD for Observation. em Preliminary diagnosis is Altered mental status, unspecifiedRepeated falls; Abnormal coagulation profile - Supratherapeutic INR. Bed requested for Telemetry/MedSurg (observation). Status is Observation. Condition is Stable. Problem is new. Symptoms have improved. UTI on Admission? No. dw
[2018-08-27] MEDS: CEFTRIAXONE/SWI 1gm 1 GM/10 ML SYR IV SCH (16:00)
[2018-08-27 16:26] LABS: Urine Blood NEGATIVE (NEG); Urine Glucose NEGATIVE (NEG); Urine Protein NEGATIVE (NEG)
[2018-08-27] MEDS ORDERED: ALPRAZOLAM 0.5 MG TABLET ONE (16:47)
[2018-08-27] MEDS ORDERED: CEFTRIAXONE/SWI 1gm 1 GM/10 ML SYR ONE (17:51)
[2018-08-27] MEDS ORDERED: ACETAMINOPHEN 500 MG TAB PO PRN (19:16)
[2018-08-27] MEDS ORDERED: ONDANSETRON 4 MG/2 ML VIAL IV PRN (19:16)
[2018-08-27] MEDS: NA CHLORIDE 0.9% 1,000 ML IV SCH (20:09)
[2018-08-27 22:07] VITALS: BMI 15.7
--- NOTE | 2018-08-28 02:06 | HP ---
Date of Admission: 08/27/2018 Code Status: Full. Chief Complaint: Altered mental status. Primary Care Physician: Dr. Dale Dimas. History Of Present Illness: The patient is an 82-year-old female with past medical history of hypert ension, dementia, anxiety disorder, atrial fibrillation, on Coumadin, congestive heart failure, osteo arthritis, who is a resident of assisted living [facility] who has been more confused than usual. The patient has had multiple falls in the recent past and today was more confused, therefore was brought into the ER. Of note, the patient has been on an antibiotic for UTI, Bactrim. In the ER, she was fo und to have elevated INR at 4.38. Her imaging studies did not show any acute fractures; however, she does have some bruising on her knee from the falls. CT scan of the head was negative for any acute intracranial bleed. The patient's x-ray did show some resolution in bilateral pulmonary opacities, s ome mild interstitial pulmonary edema present. Her BNP was 640, which is around her typical baseline . White count was normal. The patient was then referred for admission. When seen in the ER, she wa s awake, alert, oriented to self, not any acute distress. Past Medical History: Hypertension; Alzheimer dementia; generalized anxiety disorder; atrial fibrill ation, on Coumadin; congestive heart failure; osteoarthritis. Past Surgical History: Hysterectomy. Allergies: NO KNOWN DRUG ALLERGIES. Medications: List reviewed. Social History: No tobacco use or alcohol use. The patient is a resident of [facility]. Family History: Noncontributory in this 82-year-old female. Review of Systems: Limited due to patient's medical condition. Physical Examination: Vital Signs: Blood pressure 158/50, pulse 50, respirations 16, temperature 97.5, O2 97% on room air. General: Awake, alert, oriented to self, not any acute distress. Elderly female, frail. HEENT: Normocephalic, atraumatic. PERRLA. EOMI. Moist mucous membranes. Oropharynx is clear. Po or dentition. Conjunctivae anicteric. Neck: Supple. No JVD. Trachea midline. CV: S1, S2. Irregularly irregular. Peripheral pulses present. Respiratory: Diminished breath sounds at the bases. No wheezing. No stridor. No use of accessory muscles. Gastrointestinal: Abdomen is soft, nontender, nondistended. Positive bowel sounds. No guarding or rigidity. Extremities: No clubbing, cyanosis, or edema. No calf tenderness. Neuro: Cranial nerves 2 through 12 intact grossly. No focal neurological deficits. Speech is lola l. Strength is 5/5 in bilateral upper and lower extremities. Sensation intact to light touch. Skin: No rashes. The patient has some ecchymosis on the left knee. Laboratory Data: Sodium 137, potassium 3.1, chloride 100, CO2 of 31, BUN 19, creatinine 1.07, glucos e 111, calcium 8.2, magnesium 2.1. AST 118, ALT 93, alkaline phosphatase 173, total bilirubin 0.6. Troponin less than 0.02. BNP 640, albumin 3, total protein 7.6. Procalcitonin less than 0.5. INR 4 .38. WBC 9.2, H and H 11.9 and 38.1, platelets 475, MCV is 77.3. Imaging Studies: Right knee 3-view shows no fracture, dislocation, personally reviewed. CT scan of the brain shows no acute intracranial abnormality, personally reviewed. Chest x-ray shows partial re solution in bilateral pulmonary opacities, mild residual interstitial lung opacities may indicate mil d interstitial pulmonary edema. Left knee 3-view shows no fracture or dislocation. Assessment And Plan: An 82-year-old female with: 1.Acute metabolic encephalopathy, likely related to urinary tract infection. We will repeat UA and start on antibiotics. We will keep on fall precautions, have PT work with the patient and ambulate w ith assist. 2.Urinary tract infection, failed outpatient treatment. We will start on Rocephin, follow up on uri ne culture. 3.Diastolic heart failure, chronic. Chest x-ray shows some minimal pulmonary edema. BNP is at base line. The patient is not hypoxic. We will continue to monitor. Resume home medications as appropri ate. We will restrict fluids and sodium. 4.Generalized osteoarthritis, stable. 5.Coumadin coagulopathy. We will hold Coumadin tonight. Repeat INR in the a.m. 6.Atrial fibrillation, chronic, on Coumadin. We will continue amiodarone and place on telemetry. 7.Generalized anxiety disorder. 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 9.Essential hypertension. Resume home medications as appropriate. 10.Microcytic anemia, likely anemia of iron deficiency. The patient will need outpatient workup to rule out colon malignancy. 11.Hypokalemia. We will replace and monitor. 12.Elevated liver enzymes, unclear etiology, maybe passive congestion from congestive heart failure. No known history of hepatitis or liver disease. We will trend out. Plan: Admit the patient to Med/Surg, place as observation. Agronomy Specialist consulted. The patient may benefit from home health versus [facility] facility placement due to recurrent falls. KAYCE Voice ID: [id number]
[2018-08-28 04:51] LABS: Absolute Lymphocytes (CBC) 0.9 K/uL (0.7-4.9); Absolute Monocytes 0.7 K/uL (0.1-1.3); Absolute Neutrophil 6.9 K/uL (1.8-8.0); Basophils % 0.3 % (0-1.3); Eosinophils % 0.1 % (0-4.4); Hematocrit 33.1 % (36.0-45.0); Lymphocytes % 10.7 % (15.3-44.8); MPV 9.1 fL (7.6-11.3); Monocytes % 7.8 % (3.3-12.3); RBC Red Blood Cell Count 4.32 M/uL (3.86-4.86)
[2018-08-28 05:06] LABS: Protime INR 4.17
[2018-08-28 05:40] LABS: Albumin 2.7 g/dL (3.4-5.0); Bilirubin Total 0.6 mg/dL (0.2-1.0); Protein, Total 6.8 g/dL (6.4-8.2)
[2018-08-28 05:41] LABS: Potassium 2.8 mmol/L (3.5-5.1)
[2018-08-28] MEDS: KCL 20 MEQ/100 mL IVPB 20 MEQ/100 ML BAG IV SCH ×2 (06:14→08:50)
[2018-08-28 08:49] LABS: Urine Appearance CLOUDY; Urine Blood NEGATIVE (NEG); Urine Color YELLOW; Urine Glucose NEGATIVE (NEG); Urine Protein TRACE (NEG)
[2018-08-28] MEDS: CEFTRIAXONE/SWI 1gm 1 GM/10 ML SYR IV SCH (08:49)
[2018-08-28] MEDS: NA CHLORIDE 0.9% 1,000 ML IV SCH (08:50)
[2018-08-28 08:51] LABS: Urine Bilirubin 1+ (NEG); Urine Microscopic Reflex ORDER UMIC
[2018-08-28] MEDS ORDERED: ALPRAZOLAM 0.5 MG TABLET PO PRN (09:00)
[2018-08-28] MEDS ORDERED: CEFTRIAXONE 1 GM/NS 50 ML 1 GM/50 ML BAG IV SCH (09:00)
[2018-08-28 09:01] LABS: Urine Bacteria >50 /HPF (<20); Urine RBC <5 /HPF (NONE SEEN)
[2018-08-28 09:02] LABS: Urine Culture Reflex Order NOT NEEDED
[2018-08-28] MEDS: METOPROLOL TAR 50 MG TAB PO SCH ×2 (10:11→20:25)
[2018-08-28] MEDS: AMIODARONE HCL 200 MG TAB PO SCH ×2 (10:11→20:25)
[2018-08-28] MEDS: FLUOXETINE 20 MG CAP PO SCH (10:11)
[2018-08-28] MEDS ORDERED: KCL 20 MEQ/100 mL IVPB 20 MEQ/100 ML BAG IV SCH ×2 (12:00→18:00)
--- NOTE | 2018-08-28 12:24 | EKG ---
Test Date: 2018-08-27 Test Time: 11:20:50 Bias Cutter: MARVIN MEASUREMENT RESULTS: Intervals: Rate: 49 DE: 188 QRSD: 90 QT: 462 QTc: 417 [place]: P: DE: 188 QRS: 125 T: 136 INTERPRETIVE STATEMENTS: Suspect arm lead reversal, repeat ECG Marked sinus bradycardia Lateral infarct, age undetermined Abnormal ECG Compared to ECG 05/04/2018 18:14:44 Myocardial infarct finding now present First degree AV block no longer present Left ventricular hypertrophy no longer present Prolonged QT interval no longer present Electronically Signed On 08-28-18 12:23:37 CDT by Dale Ferguson
--- NOTE | 2018-08-28 15:56 | RAD REPORT ---
EXAM DESCRIPTION: MRI - Brain W/Wo Cont - 08/28/2018 3:47 pm CLINICAL HISTORY: AMS Headache, drowsiness, CVA symptomology COMPARISON: MRA Head Wo Cont dated 08/28/2018; Head Brain Wo Cont dated 08/27/2018 TECHNIQUE: Multi-sequence, multiplanar MR imaging of the brain was performed with contrast. FINDINGS: No intracranial hemorrhage, hydrocephalus, or extra-axial fluid collection.Advanced genera lized brain atrophy is present with advanced periventricular and deep white matter chronic microvascu lar ischemic changes. No edema or shift of midline structures. No intracranial mass. DWI is negative for acute CVA. The midline structures are normally formed. Mastoid air cells and paranasal sinuses are clear. Post-contrast images show no abnormal enhancement to suggest tumor or infection. IMPRESSION: No acute or concerning intracranial abnormalities. Advanced age-related changes are note d. No pathologic post-contrast enhancement suspected.
--- NOTE | 2018-08-28 15:59 | RAD REPORT ---
EXAM DESCRIPTION: MRI - MRA Head Wo Cont - 08/28/2018 3:24 pm CLINICAL HISTORY: AMS Headache, drowsiness, CVA. COMPARISON: Head Brain Wo Cont dated 08/27/2018 FINDINGS: 3D noncontrast [id number] MR angiography of the [place] was performed. No aneurysm, flow-limiting stenosis or vascular malformation is seen. Forward flow seen in codominant vertebral arteries. The visualized dural venous sinuses appear patent. IMPRESSION: No significant flow abnormality of the [place] is identified.
--- NOTE | 2018-08-28 16:05 | RAD REPORT ---
EXAM DESCRIPTION: MRI - MRA Neck W/Wo Cont - 08/28/2018 3:24 pm CLINICAL HISTORY: AMS Headache, drowsiness, CVA. COMPARISON: No comparisons FINDINGS: Contrast enhance 2D [id number] MR angiography of the neck vessels was performed. A left aortic arch is present. A normal 3 vessel origin of the great vessels is present. Mild atherosclerotic narrowing is seen involving the left carotid bulb. No significant carotid stenos is is identified bilaterally. Forward flow is seen in both vertebral arteries. IMPRESSION: No significant carotid stenosis suspected on either side.
[2018-08-28] MEDS: Calcium-Magnesium-Zinc Tablet PO SCH ×2 (17:17→20:25)
[2018-08-28] MEDS: ESTRADIOL 0.5 MG PO SCH (17:17)
--- NOTE | 2018-08-28 17:58 | P.PN ---
Subjective Date of Service: 08/28/18 Subjective: Improving Physical Examination - Vital Signs Temperature: 98.2 F Blood Pressure: 186/80 Pulse: 56 Respirations: 16 Pulse Ox (%): 93 - Physical Exam General: Alert, In no apparent distress, Cooperative HEENT: Atraumatic Neck: Supple Respiratory: Clear to auscultation bilaterally, Normal air movement Cardiovascular: Normal pulses, Regular rate/rhythm Gastrointestinal: Normal bowel sounds, Soft and benign, Non-distended Integumentary: No erythema, No warmth, No cyanosis Neurological: Normal speech, Normal strength at 5/5 x4 extr, Normal tone - Studies Laboratory Data (last 24 hrs) 08/28/18 04:01: Sodium 141, Potassium 2.8 L*, BUN 15, Creatinine 0.75, Glucose 102, Total Bilirubin 0.6, AST 122 H, ALT 89 H, Alkaline Phosphatase 155 H 08/28/18 04:01: PT 46.6 H, INR 4.17 H* 08/28/18 04:01: WBC 8.5, Hgb 10.6 L, Hct 33.1 L, Plt Count 423 H Medications List Reviewed: Yes Assessment & Plan Discharge Plan: Other (Assisted living facility) Plan to discharge in: 48 Hours Physician Review Additional Text: Impression: Acute metabolic encephalopathy likely related to UTI Chronic diastolic CHF Coumadin coagulopathy Chronic atrial fibrillation on chronic anti coagulation therapy Alzheimer's dementia Hypertension Anemia likely iron deficiency Elevated liver function Chronic arthritis Alcohol abuse Plan: Continue antibiotic therapy. Await urine culture results. Will have physical therapy assess ambulation. Continue with fluid restriction. Maintain sats above 90%. Continue to hold Coumadin if INR above 3.0. Continue with her amiodarone medication for atrial fibrillation. Patient with Alzheimer's dementia. Continue blood pressure medication. Continue to monitor electrolytes and liver function test. Anticipate discharge in the next 24-48 hr back to assisted living facility. Will discuss with family. Time Spent Managing Pts Care (In Minutes): 55
[2018-08-28] MEDS: ENSURE ENLIVE 237 ML CAN PO SCH (20:25)
[2018-08-29] MEDS ORDERED: HYDRALAZINE HCL 20 MG/ML VIAL IV PRN (00:09)
[2018-08-29] MEDS ORDERED: IPRATROPIUM BROM 0.5MG/2.5ML NEB PRN (02:17)
[2018-08-29] MEDS ORDERED: ALBUTEROL 2.5 MG/3 ML NEB SOL NEB PRN (02:17)
[2018-08-29] MEDS ORDERED: FUROSEMIDE 40 MG/4 ML VIAL IV ONE ×2 (02:17→07:00)
[2018-08-29] MEDS ORDERED: NITROGLYCERIN 1 GM PKT TD ONE (02:18)
[2018-08-29 04:38] LABS: Arterial Blood Carboxyhemoglob 1.8 % (0-1.5); Blood Gas Oxyhemoglobin 87.6 % (94-97); Blood O2 Saturation 89.7 % (92-98.5)
[2018-08-29 06:12] LABS: Absolute Lymphocytes (CBC) 0.4 K/uL (0.7-4.9); Absolute Monocytes 0.5 K/uL (0.1-1.3); Absolute Neutrophil 10.9 K/uL (1.8-8.0); Basophils % 0.3 % (0-1.3); Hematocrit 36.8 % (36.0-45.0); Lymphocytes % 3.2 % (15.3-44.8); MPV 8.7 fL (7.6-11.3); Monocytes % 4.4 % (3.3-12.3); RBC Red Blood Cell Count 4.75 M/uL (3.86-4.86)
[2018-08-29 06:33] LABS: Magnesium 1.8 mg/dL (1.8-2.4); Potassium 3.5 mmol/L (3.5-5.1)
[2018-08-29 08:00] LABS: Protime INR 2.89
--- NOTE | 2018-08-29 08:20 | RAD REPORT ---
EXAM DESCRIPTION: RAD - Chest Single View - 08/29/2018 2:44 am CLINICAL HISTORY: SOB Chest pain. COMPARISON: Chest Single View dated 08/27/2018; Chest Single View dated 05/04/2018 FINDINGS: Portable technique limits examination quality. Mild to moderate worsening in bilateral pulmonary opacities seen since the comparative study, compati ble with worsening pneumonia or pulmonary edema. Heart is mildly enlarged in size. No displaced fract ures.Aortic atherosclerosis. IMPRESSION: Mild to moderate worsening in lung aeration since comparative study.
[2018-08-29] MEDS ORDERED: POTASSIUM 25 MEQ EFFERV TAB PO ONE (09:00)
[2018-08-29] MEDS: ESTRADIOL 0.5 MG PO SCH ×3 (09:00→15:02)
[2018-08-29] MEDS: AMIODARONE HCL 200 MG TAB PO SCH ×3 (09:00→21:57)
[2018-08-29] MEDS: METOPROLOL TAR 50 MG TAB PO SCH ×2 (09:00→21:57)
[2018-08-29] MEDS: Calcium-Magnesium-Zinc Tablet PO SCH ×3 (09:00→21:56)
[2018-08-29] MEDS: ENSURE ENLIVE 237 ML CAN PO SCH ×3 (09:00→21:00)
[2018-08-29] MEDS ORDERED: MAGNESIUM SULFATE 1 gm IVPB 1 GM/100 ML BAG IV ONE (09:00)
[2018-08-29] MEDS: FLUOXETINE 20 MG CAP PO SCH ×3 (09:00→15:02)
[2018-08-29] MEDS: FUROSEMIDE 40 MG TABLET PO SCH ×3 (09:00→15:03)
[2018-08-29] MEDS: CEFTRIAXONE/SWI 1gm 1 GM/10 ML SYR IV SCH (09:07)
--- NOTE | 2018-08-29 10:07 | P.PN ---
Subjective Date of Service: 08/29/18 Primary Care Provider: unknown Chief Complaint: Altered mental status Subjective: Other (Patient with mild dementia. Was given Lasix last night. Still on nasal cannula.) Physical Examination - Vital Signs Temperature: 98.5 F Blood Pressure: 134/62 Pulse: 62 Respirations: 16 Pulse Ox (%): 95 - Physical Exam General: Alert, Cooperative, Demented, Other (Slight confusion noted) HEENT: Atraumatic Neck: Supple Respiratory: Clear to auscultation bilaterally Cardiovascular: Normal pulses, Regular rate/rhythm Gastrointestinal: Normal bowel sounds, Soft and benign, Non-distended, No tenderness, No masses, No rebound, No guarding Musculoskeletal: No erythema, No tenderness, No warmth Integumentary: No tenderness/swelling, No erythema, No warmth, No cyanosis Neurological: Normal speech, Normal strength at 5/5 x4 extr, Normal tone, Dementia - Studies Medications List Reviewed: Yes Assessment & Plan Discharge Plan: Other (custodial facility) Plan to discharge in: 48 Hours Physician Review Additional Text: Impression: Acute metabolic encephalopathy likely related to UTI Chronic diastolic CHF Coumadin coagulopathy Chronic atrial fibrillation on chronic anti coagulation therapy Alzheimer's dementia Hypokalemia with mild dehydration Hypertension Anemia likely iron deficiency Elevated liver function Chronic arthritis Alcohol abuse Depression Plan: Acute metabolic encephalopathy likely related to UTI: Continue IV antibiotic therapy. Await urine culture results. Patient still appears weak. Will recommend skilled placement. Will discuss with family. Will also discuss with Neurology to evaluate her altered mental status which likely may be related to her dementia. Will discuss with family about advanced directives. Acute on Chronic diastolic CHF: Patient given Lasix last night. Will continue with oral Lasix. Will need to continue with a 1500 cc per day fluid restriction. Will wean off oxygen. Will check to see if the patient is on chronic oxygen at home. Recheck x-ray tomorrow. Coumadin coagulopathy: INR improved. Will continue to hold Coumadin if INR greater than 3.0. Chronic atrial fibrillation on chronic anti coagulation therapy: Continue medications Hypokalemia with mild dehydration: Will discontinue IV fluids which was done yesterday. Patient was given Lasix due to CHF. Will need to balance hydration closely. Will need to monitor for volume overload. Patient on Lasix. We need to monitor and replace electrolytes. Alzheimer's dementia: MRI shows no acute stroke. Patient with dementia. Continue physical therapy and occupational therapy. Recommend skilled placement. Will discuss further with Neurology. Hypertension: Continue medication. Anemia likely iron deficiency: Continue iron supplementation. Elevated liver function: Continue monitor closely. Likely related to congestive heart failure. Chronic arthritis: Will provide medication. Continue physical therapy. Recommend skilled placement. Alcohol abuse: Daughter reports patient is using alcohol at the skilled facility. Will need to investigate this further. Depression: Will continue with medication Time Spent Managing Pts Care (In Minutes): 55
[2018-08-29 11:48] LABS: Arterial Blood Carboxyhemoglob 1.7 % (0-1.5); Blood Gas Oxyhemoglobin 97.7 % (94-97); Blood O2 Saturation 99.7 % (92-98.5)
[2018-08-29] MEDS ORDERED: KCL 20 MEQ/100 mL IVPB 20 MEQ/100 ML BAG IV SCH (14:00)
[2018-08-29] MEDS ORDERED: POTASSIUM CL SA 10 MEQ TAB PO ONE (14:44)
--- NOTE | 2018-08-29 15:53 | ECHO ---
HEIGHT: 5 ft 5 in WEIGHT: 91 lb 12.8 oz DATE OF STUDY: 08/29/[address]: Zaid Frank MD 2-DIMENSIONAL: YES M.MODE: YES DOPPLER: YES COLOR FLOW: YES TDS: NO PORTABLE: NO DEFINITY: NO BUBBLE STUDY: NO DIAGNOSIS: CONGESTIVE HEART FAILURE CARDIAC HISTORY: CATHERIZATION: NO SURGERY: NO PROSTHETIC VALVE: NO PACEMAKER: NO MEASUREMENTS (cm) DIASTOLIC (NORMALS) SYSTOLIC (NORMALS) IVSd 1.1 (0.6-1.2) LA Diam 3.5 (1.9-4.0) LVEF 68% LVIDd 3.8 (3.5-5.7) LVIDs 2.3 (2.0-3.5) %FS 38% LVPWd 1.0 (0.6-1.2) Ao Diam 3.0 (2.0-3.7) 2 DIMENSIONAL ASSESSMENT: RIGHT ATRIUM: NORMAL LEFT ATRIUM: NORMAL RIGHT VENTRICLE: NORMAL LEFT VENTRICLE: NORMAL TRICUSPID VALVE: NORMAL MITRAL VALVE: NORMAL PULMONIC VALVE: NORMAL AORTIC VALVE: SCLEROSIS PERICARDIAL EFFUSION: NONE AORTIC ROOT: NORMAL LEFT VENTRICULAR WALL MOTION: DECREASED COMPLIANCE. DOPPLER/COLOR FLOW: NORMAL. COMMENTS: NORMAL LEFT VENTRICULAR EJECTION FRACTION. DECREASED LEFT VENTRICULAR COMPLIANCE. AORTIC SCLEROSIS TECHNOLOGIST: MOISES GRAY
[2018-08-29] MEDS: WARFARIN SODIUM 1 MG TAB PO SCH (16:56)
[2018-08-30 04:55] LABS: Absolute Lymphocytes (CBC) 0.7 K/uL (0.7-4.9); Absolute Monocytes 0.5 K/uL (0.1-1.3); Absolute Neutrophil 7.3 K/uL (1.8-8.0); Basophils % 0.2 % (0-1.3); Eosinophils % 0.4 % (0-4.4); Hematocrit 33.8 % (36.0-45.0); Lymphocytes % 8.6 % (15.3-44.8); Monocytes % 5.4 % (3.3-12.3); RBC Red Blood Cell Count 4.33 M/uL (3.86-4.86)
[2018-08-30 05:18] LABS: Magnesium 2.2 mg/dL (1.8-2.4); Potassium 3.3 mmol/L (3.5-5.1)
[2018-08-30] MEDS ORDERED: POTASSIUM CL SA 10 MEQ TAB PO ONE (05:45)
[2018-08-30] MEDS: ESTRADIOL 0.5 MG PO SCH (08:07)
[2018-08-30] MEDS: Calcium-Magnesium-Zinc Tablet PO SCH ×2 (08:07→21:28)
[2018-08-30] MEDS: METOPROLOL TAR 50 MG TAB PO SCH ×2 (08:08→21:29)
[2018-08-30] MEDS: AMIODARONE HCL 200 MG TAB PO SCH ×2 (08:08→21:30)
[2018-08-30] MEDS: FLUOXETINE 20 MG CAP PO SCH (08:08)
[2018-08-30] MEDS: CEFTRIAXONE/SWI 1gm 1 GM/10 ML SYR IV SCH (08:10)
[2018-08-30] MEDS: ENSURE ENLIVE 237 ML CAN PO SCH ×2 (08:11→21:00)
--- NOTE | 2018-08-30 08:37 | RAD REPORT ---
EXAM DESCRIPTION: Moses Pa And Lat (2 Views)08/30/2018 6:05 am CLINICAL HISTORY: Cough COMPARISON: August 29 FINDINGS: Bilateral pulmonary opacities have shown significant improvement. Heart is mildly enlarge d Osteoporotic compression fracture involves the lower thoracic spine IMPRESSION: Improvement in CHF
[2018-08-30] MEDS: FUROSEMIDE 40 MG TABLET PO SCH (08:41)
--- NOTE | 2018-08-30 10:29 | P.PN ---
Subjective Date of Service: 08/30/18 Primary Care Provider: unknown Chief Complaint: Altered mental status Subjective: Other (Patient much improved since yesterday. Patient alert and cooperative.) Physical Examination - Vital Signs Temperature: 97.9 F Blood Pressure: 163/74 Pulse: 60 Respirations: 20 Pulse Ox (%): 98 - Physical Exam General: Alert, In no apparent distress, Oriented x3, Cooperative HEENT: Atraumatic Neck: Supple Respiratory: Clear to auscultation bilaterally, Normal air movement Cardiovascular: Normal pulses, Regular rate/rhythm Gastrointestinal: Normal bowel sounds, Soft and benign, Non-distended, No masses , No rebound, No guarding Musculoskeletal: No erythema, No tenderness, No warmth Integumentary: No tenderness/swelling, No erythema, No warmth, No cyanosis Neurological: Normal speech, Normal strength at 5/5 x4 extr, Normal tone, Normal affect - Studies Microbiology Data (last 24 hrs): 08/28/18 08:07 Clean Catch Urine Breaks Count - Final BETWEEN 10,000 & 100,000 CFU/ML 08/28/18 08:07 Clean Catch Urine - Final Medications List Reviewed: Yes Assessment & Plan Discharge Plan: Other (Skilled placement facility verses assisted living) Plan to discharge in: 48 Hours Physician Review Additional Text: Impression: Acute metabolic encephalopathy likely related to UTI Chronic diastolic CHF Coumadin coagulopathy Chronic atrial fibrillation on chronic anti coagulation therapy Alzheimer's dementia Hypokalemia with mild dehydration Hypertension Anemia likely iron deficiency Elevated liver function Chronic arthritis Alcohol abuse Depression Plan: Acute metabolic encephalopathy likely related to UTI: Patient seems to have improved since yesterday. Continue IV antibiotic therapy. Await urine culture results. Will have physical therapy assess ambulation. Patient may require skilled placement if required. Otherwise patient may return to assisted living facility. Anticipate discharge within the next 24 hr. Will discuss with family. Acute on Chronic diastolic CHF: This has improved. X-ray shows improvement. Continue with a 1500 cc per day fluid restriction. Continue with Lasix. Will wean off oxygen. Coumadin coagulopathy: INR improved. Will continue to hold Coumadin if INR greater than 3.0. Chronic atrial fibrillation on chronic anti coagulation therapy: Continue medications Hypokalemia with mild dehydration: IV fluids discontinued due to CHF. Will encourage ambulation and oral intake. Will need to monitor hydration status closely. Alzheimer's dementia: MRI shows no acute stroke. Patient with dementia. Continue physical therapy and occupational therapy. Recommend skilled placement. Will discuss further with Neurology. Hypertension: Continue medication. Anemia likely iron deficiency: Continue iron supplementation. Elevated liver function: Continue monitor closely. Likely related to congestive heart failure. Chronic arthritis: Will provide medication. Continue physical therapy. Will check to see if physical therapy recommends skilled placement.. Alcohol abuse: Daughter reports patient is using alcohol at the skilled facility. Will need to investigate this further. Depression: Will continue with medication Time Spent Managing Pts Care (In Minutes): 55
[2018-08-30 14:03] LABS: Protime INR 2.44
[2018-08-30] MEDS ORDERED: WARFARIN SODIUM 2 MG TAB PO SCH (17:00)
[2018-08-31 04:21] LABS: Protime INR 2.54
[2018-08-31 04:24] LABS: Absolute Lymphocytes (CBC) 0.4 K/uL (0.7-4.9); Absolute Monocytes 0.6 K/uL (0.1-1.3); Absolute Neutrophil 6.3 K/uL (1.8-8.0); Basophils % 1.8 % (0-1.3); Eosinophils % 0.7 % (0-4.4); Hematocrit 31.5 % (36.0-45.0); Lymphocytes % 4.7 % (15.3-44.8); MPV 9.1 fL (7.6-11.3); Monocytes % 7.6 % (3.3-12.3); RBC Red Blood Cell Count 4.02 M/uL (3.86-4.86)
[2018-08-31 04:29] LABS: Magnesium 2.1 mg/dL (1.8-2.4); Potassium 3.7 mmol/L (3.5-5.1)
[2018-08-31 05:29] LABS: Anisocytosis 2+; Blood Morphology Comment NOTED (NOT SEEN); Platelet Estimate ADEQ
[2018-08-31] MEDS ORDERED: POTASSIUM 25 MEQ EFFERV TAB PO ONE (06:37)
[2018-08-31] MEDS ORDERED: POTASSIUM CL SA 10 MEQ TAB PO ONE (08:58)
[2018-08-31] MEDS: FLUOXETINE 20 MG CAP PO SCH (09:00)
[2018-08-31] MEDS: FUROSEMIDE 40 MG TABLET PO SCH (09:00)
[2018-08-31] MEDS: AMIODARONE HCL 200 MG TAB PO SCH ×2 (09:00→20:39)
[2018-08-31] MEDS: METOPROLOL TAR 50 MG TAB PO SCH ×2 (09:00→20:39)
[2018-08-31] MEDS: CEFTRIAXONE/SWI 1gm 1 GM/10 ML SYR IV SCH (09:00)
[2018-08-31] MEDS: ESTRADIOL 0.5 MG PO SCH (09:00)
[2018-08-31] MEDS: Calcium-Magnesium-Zinc Tablet PO SCH ×2 (09:00→20:39)
[2018-08-31] MEDS: ENSURE ENLIVE 237 ML CAN PO SCH ×2 (09:00→20:40)
[2018-08-31] MEDS ORDERED: LACTULOSE 20 GM/30 ML UCUP PO PRN (10:17)
[2018-08-31] MEDS: HYDROCODONE/APAP 7.5/325 MG TAB PO PRN ×2 (13:06→20:37)
[2018-08-31] MEDS: DOCUSATE NA 100 MG CAP PO SCH (13:07)
--- NOTE | 2018-08-31 13:12 | P.PN ---
Subjective Date of Service: 08/31/18 Primary Care Provider: unknown Chief Complaint: Altered mental status Subjective: Improving Physical Examination - Vital Signs Temperature: 97.6 F Blood Pressure: 128/54 Pulse: 57 Respirations: 16 Pulse Ox (%): 100 - Physical Exam General: Alert, In no apparent distress, Oriented x3, Cooperative HEENT: Atraumatic Neck: Supple Respiratory: Clear to auscultation bilaterally, Normal air movement Cardiovascular: Normal pulses, Regular rate/rhythm Gastrointestinal: Normal bowel sounds, Soft and benign, Non-distended Musculoskeletal: No erythema, No tenderness, No warmth Integumentary: No erythema, No warmth, No cyanosis Neurological: Normal speech, Normal strength at 5/5 x4 extr, Normal tone, Normal affect - Studies Microbiology Data (last 24 hrs): 08/28/18 08:07 Clean Catch Urine [place] Count - Final BETWEEN 10,000 & 100,000 CFU/ML 08/28/18 08:07 Clean Catch Urine - Final Medications List Reviewed: Yes Assessment & Plan Discharge Plan: Other (Skilled placement) Plan to discharge in: 24 Hours Physician Review Additional Text: Impression: Acute metabolic encephalopathy likely related to UTI Chronic diastolic CHF Coumadin coagulopathy Chronic atrial fibrillation on chronic anti coagulation therapy Alzheimer's dementia Hypokalemia with mild dehydration Hypertension Anemia likely iron deficiency Elevated liver function Chronic arthritis Alcohol abuse Depression Plan: Acute metabolic encephalopathy likely related to UTI: Patient continues to improve. Await urine culture results. Continue physical therapy. Will recommend skilled placement at this time. Patient more alert and appears to be back at her baseline level. Acute on Chronic diastolic CHF: This has improved. X-ray shows improvement. Continue with a 1500 cc per day fluid restriction. Continue with Lasix. Will wean off oxygen. Coumadin coagulopathy: INR improved. Will continue to hold Coumadin if INR greater than 3.0. Chronic atrial fibrillation on chronic anti coagulation therapy: Continue medications Hypokalemia with mild dehydration: Overall stable. Alzheimer's dementia: MRI shows no acute stroke. Patient with dementia. Continue physical therapy and occupational therapy. Recommend skilled placement. Will discuss further with Neurology. Hypertension: Continue medication. Anemia likely iron deficiency: Continue iron supplementation. Elevated liver function: Continue monitor closely. Likely related to congestive heart failure. Chronic arthritis: Will provide medication. Continue physical therapy. Will check to see if physical therapy recommends skilled placement.. Alcohol abuse: No further use recommended at this time. Depression: Will continue with medication Time Spent Managing Pts Care (In Minutes): 55
[2018-08-31] MEDS: WARFARIN SODIUM 1 MG TAB PO SCH (17:08)
[2018-09-01 06:51] LABS: Potassium 4.1 mmol/L (3.5-5.1)
[2018-09-01 06:57] LABS: Protime INR 2.48
--- NOTE | 2018-09-01 07:07 | RAD REPORT ---
EXAM DESCRIPTION: RAD - Humerus Right - 08/31/2018 9:10 pm CLINICAL HISTORY: Fall, right arm pain COMPARISON: None. FINDINGS: No fracture is identified. There is no dislocation or periosteal reaction noted. No acute or destructive bone process. Mild degenerative changes are present at the AC joint. Acromial humeral joint space is normal. IMPRESSION: Negative right humerus examination for acute or significant finding.
[2018-09-01] MEDS: FLUOXETINE 20 MG CAP PO SCH (08:31)
[2018-09-01] MEDS: CEFTRIAXONE/SWI 1gm 1 GM/10 ML SYR IV SCH (08:31)
[2018-09-01] MEDS: FUROSEMIDE 40 MG TABLET PO SCH (08:32)
[2018-09-01] MEDS: AMIODARONE HCL 200 MG TAB PO SCH (08:32)
[2018-09-01] MEDS: DOCUSATE NA 100 MG CAP PO SCH (08:32)
[2018-09-01] MEDS: METOPROLOL TAR 50 MG TAB PO SCH (08:33)
[2018-09-01] MEDS: Calcium-Magnesium-Zinc Tablet PO SCH (08:34)
[2018-09-01] MEDS: ESTRADIOL 0.5 MG PO SCH (08:35)
[2018-09-01] MEDS: ENSURE ENLIVE 237 ML CAN PO SCH (08:37)
[2018-09-01 08:39] VITALS: O2SAT 97
--- NOTE | 2018-09-01 09:14 | P.DS ---
Admission Date: 08/28/18 Discharge Date: 09/01/18 Primary Care Provider: Dr. Dimas([place], [place]) Disposition: TRANSFER TO SNF - MEDICAL Discharge Condition: GOOD Reason for Admission: Altered mental status Consultations: Neurology-Dr. Jeter Procedures: MRI Brain: FINDINGS: No intracranial hemorrhage, hydrocephalus, or extra-axial fluid collection.Advanced generalized brain atrophy is present with advanced periventricular and deep white matter chronic microvascular ischemic changes. No edema or shift of midline structures. No intracranial mass. DWI is negative for acute CVA. The midline structures are normally formed. Mastoid air cells and paranasal sinuses are clear. Post-contrast images show no abnormal enhancement to suggest tumor or infection. IMPRESSION: No acute or concerning intracranial abnormalities. Advanced age- related changes are noted. No pathologic post-contrast enhancement suspected. MRA Brain: FINDINGS: 3D noncontrast [id number] MR angiography of the [place] of [place] was performed. No aneurysm, flow-limiting stenosis or vascular malformation is seen. Forward flow seen in codominant vertebral arteries. The visualized dural venous sinuses appear patent. IMPRESSION: No significant flow abnormality of the [place] of [place] is identified. Neck Brain: FINDINGS: Contrast enhance 2D [id number] MR angiography of the neck vessels was performed. A left aortic arch is present. A normal 3 vessel origin of the great vessels is present. Mild atherosclerotic narrowing is seen involving the left carotid bulb. No significant carotid stenosis is identified bilaterally. Forward flow is seen in both vertebral arteries. IMPRESSION: No significant carotid stenosis suspected on either side. ECHO: Ejection fraction 68% LEFT VENTRICULAR WALL MOTION: DECREASED COMPLIANCE. DOPPLER/COLOR FLOW: NORMAL. COMMENTS: NORMAL LEFT VENTRICULAR EJECTION FRACTION. DECREASED LEFT VENTRICULAR COMPLIANCE. AORTIC SCLEROSIS CXR: FINDINGS: Bilateral pulmonary opacities have shown significant improvement. Heart is mildly enlarged Osteoporotic compression fracture involves the lower thoracic spine IMPRESSION: Improvement in CHF Medical problem list: Acute metabolic encephalopathy likely related to dehydration, acute renal injury and UTI Acute on Chronic diastolic CHF Coumadin coagulopathy Chronic atrial fibrillation on chronic anti coagulation therapy Alzheimer's dementia Hypokalemia with mild dehydration Hypertension Anemia likely iron deficiency Elevated liver function Chronic arthritis Alcohol abuse Depression Mild malnutrition Brief History of Present Illness: 82-year-old female with history of hypertension, dementia, anxiety disorder, atrial fibrillation on chronic anti coagulation therapy, CHF and arthritis. She apparently had multiple falls at the assisted living facility. Patient was recently on antibiotic therapy for UTI. Patient had confusion. She was found to have elevated INR upon admission. X-ray showed pulmonary edema. Patient with acute renal injury. Patient was admitted for further evaluation. Hospital Course: Patient presented with confusion and multiple falls at assisted living facility. Patient found to have acute renal injury with poor oral intake. Patient recently treated for UTI. Urine did have bacteria. Pro calcitonin negative. Patient was placed on IV antibiotic therapy. Patient also had acute on chronic diastolic CHF. Patient was treated. Patient received diuretic therapy. This had to be adjusted closely as the patient was also dehydrated. During the course of her stay her condition improved. X-ray showed improvement. Patient worked with physical therapy. Due to her fall risk recommendation was for the patient to go to a skilled facility prior to going to an assisted living facility. At discharge patient will be transferred to assisted living facility to continue rehabilitation. Encourage oral intake. Fall precautions will need to be enforced. Patient is to finish Bactrim DS twice daily for 2 days. UTI prevention education will be provided and monitored. Recommend to recheck urine culture after treatment to monitor resolution. Patient with underlying acute on chronic diastolic CHF. Patient received diuresis. Patient has improved. At discharge she will continue with a 1500 cc per day fluid restriction. Patient will continue with Lasix 40 mg daily. Recommend to monitor her weight daily. If her weight increases or decreases significantly, further adjustment in her medication may be required. If the patient appears to be dehydrated with poor oral intake, then may need to consider holding medication. This can be further addressed by her PCP. Patient requires oxygen at discharge. This can be weaned off over time. She is to maintain sats above 90%. Recommend to recheck chest x-ray in 2-4 weeks to monitor resolution. Recommend to recheck lab-BMP in 1 week. Patient with chronic atrial fibrillation on anti coagulation therapy. Initial INR at elevated. During the course for stay this improved. At discharge she will continue with metoprolol 50 mg 1 pill twice daily and Coumadin 3 mg every 48 hr. Recommend to maintain INR between 2 and 3. This will need to be monitored closely. Recommend to recheck INR in 1 week. Further adjustment can be done by her PCP. Will need to consider discontinuation of anti coagulation therapy in the future due to her risk of falls and bleeding. Risks and benefits will need to be further addressed by her PCP and serials librarian. Patient with Alzheimer's dementia. Patient had MRI and MRA of brain due to her encephalopathy. No acute stroke identified. Patient will continue with her current medication. Patient with hypertension. Patient will continue with medication-metoprolol 50 mg 1 pill twice daily. Recommend to maintain blood pressures less 150/80. Further adjustment can be done by her PCP. May need to hold blood pressure medication if systolic less than 110. Patient with anemia likely iron deficiency. Patient will continue with iron supplementation-multi vitamin with iron daily. Recommend recheck CBC in 2-4 weeks to monitor her progress. Patient with underlying depression. Patient will continue with her medication- fluoxetine 20 mg daily and Xanax 0.5 mg 1 pill twice daily as needed for anxiety.. Patient with chronic arthritis. Patient will need to continue with physical therapy and rehabilitation at skilled facility. Fall precautions will need to be enforced. Patient takes narcotic medication-Salem 7.5/325 mg one pill 3 times a day for pain. Recommend to use medication as needed. Recommend to wean off narcotics over time as this may increase risk of fall. Patient with history of alcohol abuse. Cessation education will need to be provided. This can be monitored closely as an outpatient. Patient with mild malnutrition. Recommend encourage oral intake. Patient may continue with Ensure supplementation twice daily. This can be further monitored as an outpatient. Vital Signs/Physical Exam: Temp Pulse Resp BP Pulse Ox 98.3 F 64 16 171/76 H 97 09/01/18 08:00 09/01/18 08:33 09/01/18 08:00 09/01/18 08:33 09/01/18 08:00 General: Alert, In no apparent distress, Demented HEENT: Atraumatic Neck: Supple Respiratory: Clear to auscultation bilaterally, Normal air movement Cardiovascular: Normal pulses, Regular rate/rhythm Gastrointestinal: Normal bowel sounds, Soft and benign, Non-distended, No tenderness, No masses, No rebound, No guarding Musculoskeletal: No erythema, No tenderness, No warmth Integumentary: No tenderness/swelling, No erythema, No warmth, No cyanosis Neurological: Normal speech, Normal strength at 5/5 x4 extr, Normal tone, Normal affect, Dementia Laboratory Data at Discharge: WBC 7.4 K/uL (4.3-10.9) 08/31/18 03:38 Hgb 10.1 g/dL (12.0-15.0) L 08/31/18 03:38 Hct 31.5 % (36.0-45.0) L 08/31/18 03:38 Plt Count 312 K/uL (152-406) 08/31/18 03:38 PT 28.3 SECONDS (9.5-12.5) H 09/01/18 05:51 INR 2.48 09/01/18 05:51 Sodium 139 mmol/L (136-145) 09/01/18 05:51 Potassium 4.1 mmol/L (3.5-5.1) 09/01/18 05:51 BUN 21 mg/dL (7-18) H 09/01/18 05:51 Creatinine 0.67 mg/dL (0.55-1.3) 09/01/18 05:51 Glucose 91 mg/dL (74-106) 09/01/18 05:51 Magnesium 2.1 mg/dL (1.8-2.4) 08/31/18 03:38 Total Bilirubin 0.6 mg/dL (0.2-1.0) 08/28/18 04:01 AST 122 U/L (15-37) H 08/28/18 04:01 ALT 89 U/L (12-78) H 08/28/18 04:01 Alkaline Phosphatase 155 U/L (45-117) H 08/28/18 04:01 Home Medications: Alprazolam [Xanax] 0.5 mg PO BID PRN 08/28/18 Amiodarone HCl [Cordarone*] 1 tab PO BID 08/28/18 Calcium Carb/Mag Ox/Zinc Sulf [Ikxtfkn-Sizbneezm-Csia Tablet] 1 tab PO BID 08/28 Estradiol 0.5 mg PO DAILY 08/28/18 Fluoxetine HCl 20 mg PO DAILY 08/28/18 Furosemide 40 mg PO DAILY 08/28/18 Hydrocodone 7.5/APAP 325 [Sal[place] 7.5/325 mg*] 1 tab PO TID 08/28/18 Metoprolol Tartrate 50 mg PO BID 08/28/18 Warfarin Sodium [Coumadin*] 1 mg PO SEECOM 08/28/18 Warfarin Sodium [Coumadin*] 2 mg PO SEECOM 08/28/18 Docusate [Colace Cap*] 100 mg PO DAILY #30 cap 09/01/18 Ensure Enlive 237 ml PO BID #60 can 09/01/18 Multivitamin with Iron [Multivitamins with Iron] 1 each PO DAILY #30 tablet Sulfamethoxazole/Trimethoprim [Sulfamethoxazole-Tmp Ds Tablet] 1 tab PO BID #4 tablet 09/01/18 New Medications: Docusate [Colace Cap*] 100 mg PO DAILY #30 cap Ensure Enlive 237 ml PO BID #60 can Multivitamin with Iron [Multivitamins with Iron] 1 each PO DAILY #30 tablet Sulfamethoxazole/Trimethoprim [Sulfamethoxazole-Tmp Ds Tablet] 1 tab PO BID #4 tablet Patient Discharge Instructions: 1. Patient to be discharge to skilled facility to continue therapy. 2. Patient presented with confusion and multiple falls at assisted living facility. Patient found to have acute renal injury with poor oral intake. Patient recently treated for UTI. Urine did have bacteria. Pro calcitonin negative. Patient was placed on IV antibiotic therapy. Patient also had acute on chronic diastolic CHF. Patient was treated. Patient received diuretic therapy. This had to be adjusted closely as the patient was also dehydrated. During the course of her stay her condition improved. X-ray showed improvement. Patient worked with physical therapy. Due to her fall risk recommendation was for the patient to go to a skilled facility prior to going to an assisted living facility. At discharge patient will be transferred to assisted living facility to continue rehabilitation. Encourage oral intake. Fall precautions will need to be enforced. Patient is to finish Bactrim DS twice daily for 2 days. UTI prevention education will be provided and monitored. Recommend to recheck urine culture after treatment to monitor resolution. 3. Patient with underlying acute on chronic diastolic CHF. Patient received diuresis. Patient has improved. At discharge she will continue with a 1500 cc per day fluid restriction. Patient will continue with Lasix 40 mg daily. Recommend to monitor her weight daily. If her weight increases or decreases significantly, further adjustment in her medication may be required. If the patient appears to be dehydrated with poor oral intake, then may need to consider holding medication. This can be further addressed by her PCP. Patient requires oxygen at discharge. This can be weaned off over time. She is to maintain sats above 90%. Recommend to recheck chest x-ray in 2 -4 weeks to monitor resolution. Recommend to recheck lab-BMP in 1 week. 4. Patient with chronic atrial fibrillation on anti coagulation therapy. Initial INR at elevated. During the course for stay this improved. At discharge she will continue with metoprolol 50 mg 1 pill twice daily and Coumadin 3 mg every 48 hr. Recommend to maintain INR between 2 and 3. This will need to be monitored closely. Recommend to recheck INR in 1 week. Further adjustment can be done by her PCP. Will need to consider discontinuation of anti coagulation therapy in the future due to her risk of falls and bleeding. Risks and benefits will need to be further addressed by her PCP and serials librarian. 5. Patient with Alzheimer's dementia. Patient had MRI and MRA of brain due to her encephalopathy. No acute stroke identified. Patient will continue with her current medication. 6. Patient with hypertension. Patient will continue with medication-metoprolol 50 mg 1 pill twice daily. Recommend to maintain blood pressures less 150/80. Further adjustment can be done by her PCP. May need to hold blood pressure medication if systolic less than 110. 7. Patient with anemia likely iron deficiency. Patient will continue with iron supplementation- multi vitamin with iron daily. Recommend recheck CBC in 2-4 weeks to monitor her progress. 8. Patient with underlying depression. Patient will continue with her medication-fluoxetine 20 mg daily and Xanax 0.5 mg 1 pill twice daily as needed for anxiety.. 9. Patient with chronic arthritis. Patient will need to continue with physical therapy and rehabilitation at skilled facility. Fall precautions will need to be enforced. Patient takes narcotic medication-[place] 7.5/325 mg one pill 3 times a day for pain. Recommend to use medication as needed. Recommend to wean off narcotics over time as this may increase risk of fall. 10. Patient with history of alcohol abuse. Cessation education will need to be provided. This can be monitored closely as an outpatient. 11. Patient with mild malnutrition. Recommend encourage oral intake. Patient may continue with Ensure supplementation twice daily. This can be further monitored as an outpatient. Diet: AHA Activity: Fall precautions Time spent managing pt's care (in minutes): 55
[2018-09-01 13:26] VITALS: BP 158/70; TEMP 97.3
== END 2018-09-01 12:21 | DRG 682 ==
LOC: ER 10:30 → ERHOLD 15:00 → 4TH 18:12 → OBSVTOIN 08-28 11:00
PROVIDERS: ADMIT Family Medicine; ATTEND Family Medicine
DX: N17.9 Acute kidney failure, unspecified (principal); G93.41 Metabolic encephalopathy; I50.33 Acute on chronic diastolic (congestive) heart failure; D68.32 Hemorrhagic disorder due to extrinsic circulating anticoagulants; N39.0 Urinary tract infection, site not specified; E44.0 Moderate protein-calorie malnutrition; Z68.1 Body mass index [BMI] 19.9 or less, adult; F02.80 Dementia in other diseases classified elsewhere, unspecified severity, without behavioral disturbance, psychotic disturbance, mood disturbance, and anxiety; F41.1 Generalized anxiety disorder; Z79.01 Long term (current) use of anticoagulants; Z91.81 History of falling; S80.02XA Contusion of left knee, initial encounter; Y93.01 Activity, walking, marching and hiking; W01.0XXA Fall on same level from slipping, tripping and stumbling without subsequent striking against object, initial encounter; Y92.099 Unspecified place in other non-institutional residence as the place of occurrence of the external cause; I11.0 Hypertensive heart disease with heart failure; M15.0 Primary generalized (osteo)arthritis; G30.0 Alzheimer's disease with early onset; I48.2 Chronic atrial fibrillation; D50.9 Iron deficiency anemia, unspecified; E87.6 Hypokalemia; E86.0 Dehydration; R94.5 Abnormal results of liver function studies; Z66 Do not resuscitate; F32.9 Major depressive disorder, single episode, unspecified; F10.10 Alcohol abuse, uncomplicated
CPT/HCPCS: 36415; 70450; 70544; 70549; 70553; 71045; 71046; 80048; 80053; 80076; 81003; 81015; 82805; 83735; 83880; 84132; 84145; 84484; 85025; 85610; 87086; 87088; 93005; 93306; 94760; 96374; 97116; 97163; 97166; 97530; 99285; A9577; G0378; J0360; J0696; J1940; J2405; J3475; J7030

== ENCOUNTER 2019-04-09 03:39 | Inpatient (IN) | payer OTHER ==
[2019-04-09 04:16] LABS: Absolute Lymphocytes (CBC) 0.6 K/uL (0.7-4.9); Basophils % 0.3 % (0-1.3); Hematocrit 32.4 % (36.0-45.0); Lymphocytes % 5.1 % (15.3-44.8); RBC Red Blood Cell Count 3.83 M/uL (3.86-4.86)
[2019-04-09 04:24] LABS: Protime INR 6.87
[2019-04-09] MEDS ORDERED: NITROGLYCERIN 1 GM PKT TD ONE (04:28)
[2019-04-09] MEDS ORDERED: FUROSEMIDE 40 MG/4 ML VIAL ONE (04:28)
[2019-04-09 04:38] LABS: ALT/SGPT 61 U/L (12-78); AST/SGOT 77 U/L (15-37); Albumin 3.5 g/dL (3.4-5.0); Alkaline Phosphatase 121 U/L (45-117); BUN Blood Urea Nitrogen 23 mg/dL (7-18); Bicarbonate 21 mmol/L (21-32); Bilirubin Direct 0.3 mg/dL (0-0.2); Bilirubin Total 0.9 mg/dL (0.2-1.0); CKMB Creatine Kinase MB 1.7 ng/mL (0.3-3.6); Creatine Phosphokinase 88 U/L (26-192); Glucose Level 139 mg/dL (74-106); Lipase 142 U/L (73-393); Magnesium 2.3 mg/dL (1.8-2.4); NT PRO-BNP 1158 pg/mL (<450); Potassium 4.3 mmol/L (3.5-5.1); Sodium Level 135 mmol/L (136-145); Troponin (Emerg Dept Use Only) < 0.02 ng/mL (0.0-0.045)
[2019-04-09 04:45] LABS: Arterial Blood Carboxyhemoglob 2.3 % (0-1.5); Blood Gas Oxyhemoglobin 95.4 % (94-97); Blood O2 Saturation 98.4 % (92-98.5)
--- NOTE | 2019-04-09 05:30 | ER ---
Nurse's Notes [facility] Name: Ashtyn Nichole Age: 83 yrs Sex: Female : 1935 Arrival Date: 04/09/2019 Time: 03:40 Bed 3 Private MD: Diagnosis: Acute combined systolic (congestive) and diastolic (congestive) heart failure;Respiratory failure, unspecified with hypoxia;Acute pulmonary edema Presentation: 04/09 03:34 Presenting complaint: EMS states: Pt has been complaining of shortness of breath all jb4 night. Was satting 64% on RA, 100 on CPAP. 03:34 Method Of Arrival: EMS: [facility] jb4 03:34 Transition of care: patient was received from another setting of care (long-term care [facility] facility), [facility]. Onset of symptoms was April 09, 2019. Risk Assessment: Do you want to hurt yourself or someone else? Patient reports no desire to harm self or others. Initial Sepsis Screen: Does the patient meet any 2 criteria? RR > 20 per min. Yes Does the patient have a suspected source of infection? Yes:. Care prior to arrival: Medication(s) given: Tylenol, 500 mg NS 1L IV initiated. 18 GA, in the right antecubital area. 03:34 Acuity: CARL 2 jb4 Historical: - Allergies: 03:34 No Known Allergies; jb4 - Home Meds: 03:34 amiodarone 200 mg Oral tab 1 tab once daily [Active]; amlodipine 5 mg tab 1 tab once jb4 daily [Active]; Century Mature oral tab daily [Active]; docusate sodium 100 mg Oral cap 1 cap once daily [Active]; metoprolol tartrate 50 mg Oral tab 1 tab 2 times per day [Active]; magnesium oxide 400 mg Oral tab twice a day [Active]; potassium chloride 10 mEq Oral cpER 1 cap once daily [Active]; estradiol 0.5 mg Oral tab 1 tab once daily [Active]; fluoxetine 20 mg Oral tab once daily [Active]; furosemide 40 mg Oral tab 1 tab once daily [Active]; hydrocodone-acetaminophen 7.5-325 mg Oral tab three times a day [Active]; sulfamethoxazole-trimethoprim Oral 1 tab 2 times per day [Active]; warfarin 2.5 mg oral tab 1 tab once daily [Active]; zinc sulfate 220 (50) mg Oral cap 1 tab once daily [Active]; lactulose 10 gram/15 mL (15 mL) Oral soln 30 mL 4 times per day [Active]; ondansetron HCl 4 mg Oral tab 1 tabs every 6 hours as need [Active]; - PMHx: 03:34 Arthritis; Anxiety; Atrial Fib; CHF; Depression; Hypertension; jb4 - PSHx: 03:34 Hysterectomy; jb4 - Immunization history:: Adult Immunizations up to date. - Social history:: Smoking status: Patient/guardian denies using tobacco. - Ebola Screening: : No symptoms or risks identified at this time. Screenin:34 Abuse screen: Denies threats or abuse. Nutritional screening: No deficits noted. jb4 Tuberculosis screening: No symptoms or risk factors identified. Fall Risk Secondary diagnosis (15 points) Dyspnea. IV access (20 points). Total [place] Fall Scale indicates Low Risk Score (25-44 pts). Fall prevention measures have been instituted. Side Rails Up X 2 Placed close to Nursing Station Frequent Obs/Assesments occuring Family Present and informed to notify staff if they need to leave bedside As available Patient and Family Educated on Fall Prevention Program and strategies. Assessment: 03:34 General: Appears distressed, uncomfortable, Behavior is cooperative, anxious. Pain: jb4 Denies pain. Neuro: Level of Consciousness is awake, alert, obeys commands, Oriented to person, place, time, situation. Cardiovascular: Patient's skin is warm and dry. Rhythm is sinus rhythm. Respiratory: Airway is patent Respiratory effort is even, labored, Respiratory pattern is symmetrical, tachypnea Breath sounds with wheezes bilaterally. Onset: The symptoms/episode began/occurred gradually. GI: No deficits noted. No signs and/or symptoms were reported involving the gastrointestinal system. EENT: No deficits noted. No signs and/or symptoms were reported regarding the EENT system. Derm: Skin is intact, Skin is pink, warm \T\ dry. Musculoskeletal: Circulation, motion, and sensation intact. Range of motion: intact in all extremities. 03:34 : Parent/caregiver report the patient having EMS reports patient currently has a UTI. jb4 04:55 Reassessment: Patient and/or family updated on plan of care and expected duration. Pain jb4 level reassessed. Pt reports feeling better after being on the Bi-pap Patient denies pain at this time. Respiratory: Airway is patent Respiratory effort is even, labored, Respiratory pattern is regular, symmetrical. 06:00 Reassessment: Patient appears in no apparent distress at this time. Patient and/or jb4 family updated on plan of care and expected duration. Pain level reassessed. Patient denies pain at this time. Patient states feeling better. Respiratory: Airway is patent Respiratory effort is even, unlabored, Respiratory pattern is regular, symmetrical. Vital Signs: 03:34 BP 155 / 79; Pulse 70; Resp 23; Temp 98.0(A); Pulse Ox 100% on BiPAP; Weight 49.9 kg jb4 (R); Height 5 ft. 5 in. (165.10 cm); Pain 0/10; 04:30 BP 123 / 65; Pulse 61; Resp 16; Pulse Ox 100% on BiPAP; jb4 05:54 BP 128 / 65; Pulse 69; Resp 21; Pulse Ox 93% on 3 lpm NC; ak1 05:55 Resp 19 S; Pulse Ox 95% on 5 lpm NC; ak1 07:23 BP 136 / 67; Pulse 72; Resp 20; Pulse Ox 94% on 4 lpm NC; tw2 03:34 Body Mass Index 18.30 (49.90 kg, 165.10 cm) jb4 05:54 pt requested to be taken of Bipap ak1 05:55 RT at bedside. ak1 ED Course: 03:34 Maintain EMS IV. Dressing intact. Good blood return noted. Site clean \T\ dry. Gauge \T\ christopher 4 site: 18g right ac. 03:34 Arm band placed on right wrist. jb4 03:34 Patient has correct armband on for positive identification. Placed in gown. Bed in low jb4 position. Call light in reach. Side rails up X 1. monitor car operator on. Pulse ox on. NIBP on. 03:40 Patient arrived in ED. ds1 03:40 Brett Willams, NARDA is Primary Nurse. jb4 03:43 Aneudy Bragg MD is Attending Physician. tw4 03:44 Triage completed. jb4 03:53 BIPAP Sent. mw2 04:24 Notified ED physician of a critical lab result(s). INR 6.87. ak1 05:27 Brian Lopez MD is Hospitalizing Provider. tw4 05:32 XRAY CXR (1 view) In Process Unspecified. EDMS 07:32 No provider procedures requiring assistance completed. Patient admitted, IV remains in tw2 place. Administered Medications: 04:35 Drug: Nitro-Bid Ointment 2 % 1 inches Route: Transdermal; Site: anterior chest wall; jb4 04:55 Drug: Lasix 80 mg Route: IVP; Site: right antecubital; jb4 Outcome: 05:29 Decision to Hospitalize by Provider. tw4 07:32 Admitted to Med/surg accompanied by tech, via wheelchair, room 414, with oxygen, with tw2 chart, Report called to NARDA Castillo 07:32 Condition: stable 07:32 Instructed on the need for admit. 07:35 Patient left the ED. tw2 Signatures: Dispatcher [employer] EDNY Sara Alejo ds1 Jeana Melgar RN RN ak1 Shona Frank RN RN tw2 Brett Willams RN RN jb4 Aneudy Bragg MD MD tw4 Judson Alston mw2 Corrections: (The following items were deleted from the chart) 04:02 03:34 Care prior to arrival: None. jb4 jb4 04:57 04:55 Respiratory: Airway is patent Respiratory effort is even, labored, Respiratory jb4 pattern is symmetrical, tachypnea jb4
--- NOTE | 2019-04-09 05:30 | EDPHYS ---
Physician Documentation [facility] Name: Ashtyn Nichole Age: 83 yrs Sex: Female : 1935 Arrival Date: 04/09/2019 Time: 03:40 Bed 3 Private MD: ED Physician Aneudy Bragg HPI: 04/09 03:44 This 83 yrs old Female presents to ER via EMS with complaints of SOB. tw4 03:44 The patient has shortness of breath at rest. Onset: The symptoms/episode began/occurred tw4 3 day(s) ago. Duration: The symptoms are continuous, and are steadily getting worse. The patient's shortness of breath is aggravated by exertion, walking, is alleviated by rest, application of supplemental oxygen. Associated signs and symptoms: Pertinent positives: non-productive cough. Severity of symptoms: At their worst the symptoms were severe in the emergency department the symptoms are unchanged. The patient has experienced similar episodes in the past, a few times. Historical: - Allergies: 03:34 No Known Allergies; jb4 - Home Meds: 03:34 amiodarone 200 mg Oral tab 1 tab once daily [Active]; amlodipine 5 mg tab 1 tab once jb4 daily [Active]; Century Mature oral tab daily [Active]; docusate sodium 100 mg Oral cap 1 cap once daily [Active]; metoprolol tartrate 50 mg Oral tab 1 tab 2 times per day [Active]; magnesium oxide 400 mg Oral tab twice a day [Active]; potassium chloride 10 mEq Oral cpER 1 cap once daily [Active]; estradiol 0.5 mg Oral tab 1 tab once daily [Active]; fluoxetine 20 mg Oral tab once daily [Active]; furosemide 40 mg Oral tab 1 tab once daily [Active]; hydrocodone-acetaminophen 7.5-325 mg Oral tab three times a day [Active]; sulfamethoxazole-trimethoprim Oral 1 tab 2 times per day [Active]; warfarin 2.5 mg oral tab 1 tab once daily [Active]; zinc sulfate 220 (50) mg Oral cap 1 tab once daily [Active]; lactulose 10 gram/15 mL (15 mL) Oral soln 30 mL 4 times per day [Active]; ondansetron HCl 4 mg Oral tab 1 tabs every 6 hours as need [Active]; - PMHx: 03:34 Arthritis; Anxiety; Atrial Fib; CHF; Depression; Hypertension; jb4 - PSHx: 03:34 Hysterectomy; jb4 - Immunization history:: Adult Immunizations up to date. - Social history:: Smoking status: Patient/guardian denies using tobacco. - Ebola Screening: : No symptoms or risks identified at this time. ROS: 03:50 Constitutional: Negative for fever, chills, and weight loss, Eyes: Negative for injury, tw4 pain, redness, and discharge, Cardiovascular: Negative for chest pain, palpitations, and edema, Abdomen/GI: Negative for abdominal pain, nausea, vomiting, diarrhea, and constipation, Back: Negative for injury and pain. 03:50 : Negative for injury, bleeding, discharge, and swelling, MS/Extremity: Negative for injury and deformity, Skin: Negative for injury, rash, and discoloration, Neuro: Negative for headache, weakness, numbness, tingling, and seizure. 03:50 Respiratory: Positive for shortness of breath, Negative for cough, dyspnea on exertion, hemoptysis, orthopnea, pleurisy. Exam: 03:50 Head/Face: Normocephalic, atraumatic. Eyes: Pupils equal round and reactive to light, tw4 extra-ocular motions intact. Lids and lashes normal. Conjunctiva and sclera are non-icteric and not injected. Cornea within normal limits. Periorbital areas with no swelling, redness, or edema. Chest/axilla: Normal chest wall appearance and motion. Nontender with no deformity. No lesions are appreciated. Cardiovascular: Regular rate and rhythm with a normal S1 and S2. No gallops, murmurs, or rubs. Normal PMI, no JVD. No pulse deficits. 03:50 Abdomen/GI: Soft, non-tender, with normal bowel sounds. No distension or tympany. No guarding or rebound. No evidence of tenderness throughout. Back: No spinal tenderness. No costovertebral tenderness. Full range of motion. MS/ Extremity: Pulses equal, no cyanosis. Neurovascular intact. Full, normal range of motion. Neuro: Awake and alert, GCS 15, oriented to person, place, time, and situation. Cranial nerves II-XII grossly intact. Motor strength 5/5 in all extremities. Sensory grossly intact. Cerebellar exam normal. Normal gait. 03:50 Constitutional: The patient appears in obvious distress, moderately distressed. 03:50 Respiratory: moderate respiratory distress is noted, Respirations: labored breathing, that is mild, Breath sounds: rales, are scattered. Vital Signs: 03:34 BP 155 / 79; Pulse 70; Resp 23; Temp 98.0(A); Pulse Ox 100% on BiPAP; Weight 49.9 kg jb4 (R); Height 5 ft. 5 in. (165.10 cm); Pain 0/10; 04:30 BP 123 / 65; Pulse 61; Resp 16; Pulse Ox 100% on BiPAP; jb4 05:54 BP 128 / 65; Pulse 69; Resp 21; Pulse Ox 93% on 3 lpm NC; ak1 05:55 Resp 19 S; Pulse Ox 95% on 5 lpm NC; ak1 07:23 BP 136 / 67; Pulse 72; Resp 20; Pulse Ox 94% on 4 lpm NC; tw2 03:34 Body Mass Index 18.30 (49.90 kg, 165.10 cm) jb4 05:54 pt requested to be taken of Bipap ak1 05:55 RT at bedside. ak1 MDM: 03:43 Patient medically screened. 04/10 02:09 Differential diagnosis: CHF exacerbation, Myocardial Infarction pneumonia, Pneumothorax tw4 Psychogenic pulmonary edema. Antibiotic administration: Not indicated. Data reviewed: vital signs, nurses notes. Data interpreted: Pulse oximetry: Interpretation: hypoxia. Plan: O2 by Mask applied. Test interpretation: by ED physician or midlevel provider: ECG, plain radiologic studies. Counseling: I had a detailed discussion with the patient and/or guardian regarding: the historical points, exam findings, and any diagnostic results supporting the discharge/admit diagnosis, lab results, radiology results, the need for further work-up and treatment in the hospital. Physician consultation: Brian Lopez MD regarding admission, to the telemetry unit. patient's condition, and will see patient in ED. 04/09 03:46 Order name: ABG 4 04/09 03:46 Order name: BMP 04/09 03:46 Order name: CBC with Diff 04/09 03:46 Order name: Ckmb 4 04/09 03:46 Order name: CPK 04/09 03:46 Order name: D-Dimer 04/09 03:46 Order name: Hepatic Function tw 04/09 03:46 Order name: Lipase tw 04/09 03:46 Order name: Magnesium tw 04/09 03:46 Order name: NT PRO-BNP tw 04/09 03:46 Order name: PT-INR tw 04/09 03:46 Order name: Ptt, Activated tw 04/09 03:46 Order name: Troponin (emerg Dept Use Only) tw 04/09 03:46 Order name: Call for Old Records; Complete Time: 03:48 tw4 04/09 03:46 Order name: Call for Old EKG; Complete Time: 03:48 tw4 04/09 03:46 Order name: BIPAP tw 04/09 03:46 Order name: Call RT; Complete Time: 03:53 tw4 04/09 03:46 Order name: XRAY CXR (1 view) [facility] 04/09 03:46 Order name: EKG; Complete Time: 03:47 tw4 04/09 03:46 Order name: Cardiac monitoring; Complete Time: 03:48 tw4 04/09 03:46 Order name: EKG - Nurse/Tech; Complete Time: 03:48 tw4 04/09 03:46 Order name: IV Saline Lock; Complete Time: 03:55 tw4 04/09 04:22 Order name: Manual Differential [facility] 04/09 06:32 Order name: CONS Physician Consult [facility] 04/09 06:32 Order name: Physical Therapy Consult [facility] 04/09 06:32 Order name: Heart Healthy [facility] 04/09 06:33 Order name: Echo with Doppler [facility] 04/09 03:46 Order name: Labs collected and sent; Complete Time: 03:55 tw4 04/09 03:46 Order name: O2 Per Protocol; Complete Time: 03:48 tw4 04/09 03:46 Order name: O2 Sat Monitoring; Complete Time: 03:48 tw4 EC/28 03:50 Rate is 67 beats/min. Rhythm is regular. QRS Howe is Normal. IN interval is normal. QRS tw4 interval is normal. QT interval is prolonged at 464 msec. No Q waves. T waves are Normal. T waves are Flattened in lead III. No ST changes noted. Clinical impression: Abnormal EKG without significant change. Interpreted by me. Reviewed by me. Administered Medications: 04:35 Drug: Nitro-Bid Ointment 2 % 1 inches Route: Transdermal; Site: anterior chest wall; jb4 04:55 Drug: Lasix 80 mg Route: IVP; Site: right antecubital; jb4 Disposition: 04/10 02:10 Critical Care:. tw4 Disposition: 04/09/19 05:29 Hospitalization ordered by Brian Lopez for Inpatient Admission. Preliminary diagnosis are Acute combined systolic (congestive) and diastolic (congestive) heart failure, Respiratory failure, unspecified with hypoxia, Acute pulmonary edema. - Bed requested for Telemetry/MedSurg (Inpatient). - Status is Inpatient Admission. tw2 - Condition is Fair. - Problem is an ongoing problem. - Symptoms are unchanged. UTI on Admission? No Critical care time excluding procedures: 02:10 Critical care time: Bedside Care: 20 minutes, Consultation: 5 minutes. Total time: 25 tw4 minutes Signatures: Dispatcher [employer] EDMS Suad King Tara, RN RN tw2 Brett Willams RN RN jb4 Aneudy Bragg MD MD tw4 Judson Alston mw2 Corrections: (The following items were deleted from the chart) 04/09 04:10 03:47 BLOOD CULTURE*+BA.LAB.BRZ ordered. EDWV EDMS 07:14 05:29 Hospitalization Ordered by Brian Lopez MD for Inpatient Admission. Preliminary bd diagnosis is Acute combined systolic (congestive) and diastolic (congestive) heart failure; Respiratory failure, unspecified with hypoxia; Acute pulmonary edema. Bed requested for Telemetry/MedSurg (Inpatient). Status is Inpatient Admission. Condition is Fair. Problem is an ongoing problem. Symptoms are unchanged. UTI on Admission? No. tw4 07:35 07:14 04/09/2019 05:29 Hospitalization Ordered by Brian Lopez MD for Inpatient tw2 Admission. Preliminary diagnosis is Acute combined systolic (congestive) and diastolic (congestive) heart failure; Respiratory failure, unspecified with hypoxia; Acute pulmonary edema. Bed requested for Telemetry/MedSurg (Inpatient). Status is Inpatient Admission. Condition is Fair. Problem is an ongoing problem. Symptoms are unchanged. UTI on Admission? No. bd
[2019-04-09 05:39] LABS: Blood Morphology Comment NOTED (NOT SEEN); Ovalocytes 1+; Platelet Estimate ADEQ
[2019-04-09] MEDS ORDERED: ACETAMINOPHEN 500 MG TAB PO PRN (06:27)
[2019-04-09] MEDS ORDERED: ONDANSETRON 4 MG/2 ML VIAL IV PRN (06:27)
--- NOTE | 2019-04-09 07:20 | P.HP ---
Certification for Inpatient Patient admitted to: Observation With expected LOS: <2 Midnights Patient will require the following post-hospital care: Other Practitioner: I am a practitioner with admitting privileges, knowledge of patient current condition, hospital course, and medical plan of care. Services: Services provided to patient in accordance with Admission requirements found in Title 42 Section 412.3 of the Code of Federal Regulations Patient History Date of Service: 04/09/19 Reason for admission: Shortness of breath shortness of breath History of Present Illness: Patient is an 83-year-old female who comes to the hospital with difficulty breathing. Patient lives at [facility] living [facility]. Patient has been taking her medications as prescribed. She became short of breath and came to the hospital for further evaluation. In the emergency room, her chest x-ray revealed bilateral pulmonary edema. Patient was given IV Lasix. Patient has diuresed extensively in the emergency room. Patient will be admitted for observation. She had an echocardiogram done about 7 months ago which revealed a normal ejection fraction. Patient also had some decreased left ventricular compliance. BNP was also elevated. Will get Cardiology consultation as well. Incidentally, patient was found have an elevated INR level. Patient has no active bleeding noted. Patient is on amiodarone with the Coumadin. Currently patient is taking 200 mg b.i.d.. We could probably reduce this to 200 mg daily which may prevent her could min levels from getting toxic. Will also need to reduce her Coumadin level prior to discharge home. Allergies No Known Allergies Allergy (Unverified 08/27/18 19:16) Home Medications: Alprazolam [Xanax] 0.5 mg PO BID PRN 08/28/18 Amiodarone HCl [Cordarone*] 1 tab PO BID 08/28/18 Calcium Carb/Mag Ox/Zinc Sulf [Vqlartn-Wkicgbvgs-Oqsx Tablet] 1 tab PO BID 08/28 Estradiol 0.5 mg PO DAILY 08/28/18 Fluoxetine HCl 20 mg PO DAILY 08/28/18 Furosemide 40 mg PO DAILY 08/28/18 Hydrocodone 7.5/APAP 325 [[place] 7.5/325 mg*] 1 tab PO TID 08/28/18 Metoprolol Tartrate 50 mg PO BID 08/28/18 Warfarin Sodium [Coumadin*] 1 mg PO SEECOM 08/28/18 Warfarin Sodium [Coumadin*] 2 mg PO SEECOM 08/28/18 Docusate [Colace Cap*] 100 mg PO DAILY #30 cap 09/01/18 Ensure Enlive 237 ml PO BID #60 can 09/01/18 Multivitamin with Iron [Multivitamins with Iron] 1 each PO DAILY #30 tablet Sulfamethoxazole/Trimethoprim [Sulfamethoxazole-Tmp Ds Tablet] 1 tab PO BID #4 tablet 09/01/18 - Past Medical/Surgical History Diabetic: No -: Congestive heart failure exacerbation -: anxiety -: arthritis -: Atrial fibrillation -: depression -: Hypertension -: hysterectomy - Family History Father Family History: Reviewed- Non-Contributory - Social History Smoking Status: Never smoker Alcohol use: Yes CD- Drugs: Yes Caffeine use: Yes Review of Systems 10-point ROS is otherwise unremarkable Physical Examination - Vital Signs Temperature: 99 F Blood Pressure: 140/80 Pulse: 80 Respirations: 18 Pulse Ox (%): 96 - Physical Exam General: Alert, In no apparent distress, Oriented x3 HEENT: Atraumatic, PERRLA, Mucous membr. moist/pink, EOMI, Sclerae nonicteric Neck: Supple, 2+ carotid pulse no bruit, No LAD, Without JVD or thyroid abnormality Respiratory: Diminished, Crackles/rales Cardiovascular: Regular rate/rhythm, Normal S1 S2, Systolic murmur Gastrointestinal: Normal bowel sounds, Soft and benign, Non-distended, No tenderness Musculoskeletal: No clubbing, No tenderness, Swelling Integumentary: No rashes Neurological: Normal speech, Normal tone, Sensation intact, Cranial nerves 3-12 intact, Normal affect, Abnormal gait (Patient gets around with a walker), Abnormal strength (Strength is 4/5 in all 4 extremities) Lymphatics: No axilla or inguinal lymphadenopathy - Studies Laboratory Data (last 24 hrs) 04/09/19 03:49: PT 75.3 H, INR 6.87 H*, APTT 50.5 H 04/09/19 03:49: WBC 11.5 H, Hgb 10.8 L, Hct 32.4 L, Plt Count 302 04/09/19 03:49: Sodium 135 L, Potassium 4.3, BUN 23 H, Creatinine 0.82, Glucose 139 H, Magnesium 2.3, Total Bilirubin 0.9, AST 77 H, ALT 61, Alkaline Phosphatase 121 H, Lipase 142 Assessment & Plan - Problems (Diagnosis) (1) Acute diastolic CHF (congestive heart failure) Current Visit: Yes Status: Acute (2) Warfarin-induced coagulopathy Current Visit: Yes Status: Acute (3) Atrial fibrillation Current Visit: Yes Status: Acute (4) Hypertension Current Visit: Yes Status: Acute (5) Depression Current Visit: Yes Status: Acute - Plan 1. Echocardiogram 2. We may add a low-dose Alexandro or Arb 3. Continue amiodarone and beta-raul therapy. Hold Coumadin until INR is therapeutic and decrease dose once re-initiated 4. Cardiology consultation 5. Aggressive diuresis 6. Strict I's and O's 7. Repeat CXR 8. Daily weights 9. Education regarding diet and treatment of congestive heart failure Discharge Plan: Home Plan to discharge in: Greater than 2 days - Advance Directives Does patient have a Living Will: Yes Does patient have a Durable POA for Healthcare: Yes - Code Status/Comfort Care Code Status Assessed: Yes Code Status: Full Code Critical Care: No Time Spent Managing PTS Care (In Minutes): 45
--- NOTE | 2019-04-09 07:50 | EKG ---
Test Date: 2019-04-09 Test Time: 03:47:25 [place]: MUNA MEASUREMENT RESULTS: Intervals: Rate: 67 DC: 208 QRSD: 84 QT: 464 QTc: 490 [place]: P: 74 DC: 208 QRS: 40 T: 53 INTERPRETIVE STATEMENTS: Normal sinus rhythm Possible Left atrial enlargement Otherwise normal ECG Compared to ECG 08/27/2018 11:20:50 Sinus bradycardia no longer present Myocardial infarct finding no longer present Electronically Signed On 04-09-19 07:49:19 CDT by Dale Ferguson
--- NOTE | 2019-04-09 08:15 | RAD REPORT ---
EXAM DESCRIPTION: RAD - Chest Single View - 04/09/2019 5:32 am CLINICAL HISTORY: DYSPNEA Chest pain. COMPARISON: Chest Pa And Lat (2 Views) dated 08/30/2018; Chest Single View dated 08/29/2018; Chest Sin gle View dated 08/27/2018; Chest Single View dated 05/04/2018 FINDINGS: Portable technique limits examination quality. Extensive bilateral pulmonary opacities are noted which may represent pulmonary edema or pneumonia. T he heart is mildly enlarged in size. Aortic atherosclerosis is seen.
[2019-04-09 10:16] VITALS: BMI 17.4
--- NOTE | 2019-04-09 11:41 | P.PN ---
Subjective Date of Service: 04/09/19 Primary Care Provider: unknown Chief Complaint: Shortness of breath shortness of breath Subjective: Other (Patient reports not being on a fluid restriction at the assisted living facility.) Physical Examination - Vital Signs Temperature: 97.7 F Blood Pressure: 165/71 Pulse: 69 Respirations: 20 Pulse Ox (%): 93 - Physical Exam General: Alert, Oriented x3 HEENT: Atraumatic Neck: Supple Respiratory: Clear to auscultation bilaterally Cardiovascular: Normal pulses, Regular rate/rhythm Gastrointestinal: Normal bowel sounds, Soft and benign, Non-distended - Studies Laboratory Data (last 24 hrs) 04/09/19 03:49: PT 75.3 H, INR 6.87 H*, APTT 50.5 H 04/09/19 03:49: WBC 11.5 H, Hgb 10.8 L, Hct 32.4 L, Plt Count 302 04/09/19 03:49: Sodium 135 L, Potassium 4.3, BUN 23 H, Creatinine 0.82, Glucose 139 H, Magnesium 2.3, Total Bilirubin 0.9, AST 77 H, ALT 61, Alkaline Phosphatase 121 H, Lipase 142 Assessment & Plan Discharge Plan: Other (Assisted living facility) Plan to discharge in: 24 Hours Physician Review Additional Text: Impression: Shortness of breath secondary to acute on chronic diastolic CHF Chronic atrial fibrillation on chronic anti coagulation therapy-Coumadin Elevated INR on chronic anti coagulation therapy-Coumadin Hypertension Depression with anxiety Anemia of chronic disease Chronic pain Plan: Shortness of breath secondary to acute on chronic diastolic CHF: Continue with diuresis and fluid restriction. Will monitor weights closely. Obtain strict input and output. Patient currently on IV Lasix. Will continue to adjust. Recheck chest x-ray tomorrow. Anticipate discharge tomorrow with clinical improvement to assisted living facility. I will turn the service over to Dr. Magaña tomorrow. I will go over the plan of care with her. Chronic atrial fibrillation on chronic anti coagulation therapy-Coumadin: Will hold Coumadin at this time. Will verify dosage at assisted living facility. Cardiology consulted. Will consider decreasing amiodarone but will discuss with cardiology. Elevated INR on chronic anti coagulation therapy-Coumadin: Continue to hold Coumadin at this time. Will verify medication. Monitor INR closely. May need to restart at a lower dose. Hypertension: Continue with medication. Will monitor and adjust appropriately. Depression with anxiety: Continue medication. Anemia of chronic disease with iron deficiency: Start Iron. Will monitor closely. Chronic pain: Restart home medication. Time Spent Managing Pts Care (In Minutes): 55
[2019-04-09] MEDS: METOPROLOL TAR 50 MG TAB PO SCH ×2 (12:05→21:59)
[2019-04-09] MEDS: FLUOXETINE 20 MG CAP PO SCH (12:05)
[2019-04-09] MEDS: FUROSEMIDE 40 MG/4 ML VIAL IV SCH ×2 (12:05→17:54)
[2019-04-09] MEDS: AMIODARONE HCL 200 MG TAB PO SCH ×2 (12:05→21:58)
[2019-04-09] MEDS: HYDROCODONE/APAP 7.5/325 MG TAB PO PRN ×2 (12:05→21:58)
--- NOTE | 2019-04-09 12:09 | ECHO ---
HEIGHT: 5 ft 5 in WEIGHT: 104 lb 11.2 oz DATE OF STUDY: 04/09/[address]: Brian Lopez MD 2-DIMENSIONAL: YES M.MODE: YES DOPPLER: YES COLOR FLOW: YES TDS: PORTABLE: DEFINITY: BUBBLE STUDY: DIAGNOSIS: ACUTE CHF CARDIAC HISTORY: CATHERIZATION: NO SURGERY: NO PROSTHETIC VALVE: NO PACEMAKER: NO MEASUREMENTS (cm) DIASTOLIC (NORMALS) SYSTOLIC (NORMALS) IVSd 0.9 (0.6-1.2) LVIDs 2.2 (2.0-3.5 LVEF 73% LVIDd 3.8 (3.5-5.7) %FS 42% LVPWd 1.0 (0.6-1.2) Ao Diam 2.7 (2.0-3.7) 2 DIMENSIONAL ASSESSMENT: RIGHT ATRIUM: DILATED LEFT ATRIUM: DILATED RIGHT VENTRICLE: NORMAL LEFT VENTRICLE: NORMAL TRICUSPID VALVE: NORMAL MITRAL VALVE: MITRAL ANNULAR CALCIFICATION PULMONIC VALVE: NORMAL AORTIC VALVE: SCLEROSIS PERICARDIAL EFFUSION: NONE AORTIC ROOT: NORMAL LEFT VENTRICULAR WALL MOTION: NORMAL DOPPLER/COLOR FLOW: MILD AORTIC REGURGITATION, MITRAL REGURGITATION AND TRICUSPID REGURGITATION. NO AORTC STENOSIS. ESTIMATED RIGHT VENTRICULAR SYSTOLIC PRESSURE 75 mmHg. SEVERE PULMONARY HYPERTENSION. COMMENTS: NORMAL LEFT VENTRICULAR EJECTION FRACTION. DILATED LEFT ATRIUM AND RIGHT ATRIUM. MITRAL ANNULAR CALCIFICATION. AORTIC SCLEROSIS WITH NO AORTIC STENOSIS. MILD AORTIC REGURGITATION, MITRAL REGURGITATION AND TRICUSPID REGURGITATION. SEVERE PULMONARY HYPERTENSION. TECHNOLOGIST: MOISES MATIAS
[2019-04-09 12:53] LABS: Ferritin 154.9 ng/mL (8-388); Thyroid Stimulating Hormone 1.7 uIU/mL (0.360-3.740)
[2019-04-09 13:41] LABS: Urine Appearance CLEAR; Urine Bilirubin NEGATIVE (NEG); Urine Blood NEGATIVE (NEG); Urine Color YELLOW; Urine Glucose NEGATIVE (NEG); Urine Protein NEGATIVE (NEG); Urine Specific Gravity <=1.005 (1.005-1.030); Urine Urobilinogen 0.2 mg/dL (0.2-1.0); Urine pH 6.5 (5.0-7.0)
[2019-04-09 13:57] LABS: Urine Bacteria <20 /HPF (<20); Urine Culture Reflex Order REFLEXED; Urine RBC <5 /HPF (NONE SEEN)
--- NOTE | 2019-04-09 14:39 | RAD REPORT ---
EXAM DESCRIPTION: CT - Chest For Pe Angio - 04/09/2019 2:24 pm CLINICAL HISTORY: Chest pain. sever pulmonary hypertension r/0 PE COMPARISON: Chest Single View dated 04/09/2019 TECHNIQUE: CT angiogram of the pulmonary arteries was performed with MIP. All CT scans are performed using dose optimization technique as appropriate and may include automated exposure control or mA/KV adjustment according to patient size. FINDINGS: No evidence of pulmonary thromboembolism. Significant enlargement of the pulmonary arteria l tree is identified compatible with pulmonary hypertension. Cardiac size is enlarged moderately. No acute aortic finding demonstrated. Atherosclerosis of the aortic arch is present. Moderate bilateral pulmonary opacities are seen suggesting pulmonary edema or less likely pneumonia. No significant pericardial or pleural fluid. No concerning bony finding. IMPRESSION: No evidence of pulmonary thromboembolism. Enlarged pulmonary arteries compatible with un derlying pulmonary artery hypertension. Moderate bilateral pulmonary opacities are seen suspicious for pulmonary edema. Given the enlarged ca rdiac size, underlying CHF is a possibility.
--- NOTE | 2019-04-09 17:51 | CON ---
Reason For Consult: Congestive heart failure. History Of Present Illness: Ms. Nichole has been feeling ill for about 3 days before coming in. When she came to the hospital, she was found to have mild pulmonary edema, was also found to be in sinus rhythm. She has a history of AFib, history of hospitalizations for diastolic congestive heart failure or probably a better term is heart failure with normal ejection fraction. She lives in a correction. They administered all of her medications. Her diet is self selection, but she complains that the food is very salty. Medicines she is on are alprazolam, warfarin, amiodarone, hydrocodone, metoprolol, furosemide, fluoxetine, estradiol, calcium carbonate, docusate sodium, Ensure, multivitamin, and Bactrim. I do not think the Bactrim is everyday. I do not suspect she is actually taking it now. Her INR is 6.87. Her complete blood count shows mild anemia, hemoglobin 10.8, normochromic normocytic. Blood gas shows a normal pCO2 level and pH. She has a normal creatinine, BUN slightly elevated. She has mild elevation of SGOT 77. Troponins are normal and her N terminal proBNP is elevated. An echocardiogram reveals a lot of calcification of the aortic and mitral valves, but there is no aortic stenosis. She has mild mitral, tricuspid, and aortic regurgitation, but there is severe pulmonary hypertension. In the past, we have not seen severe pulmonary hypertension in Ms. Nichole. Her last echocardiogram in August showed no mention of right ventricular systolic pressure. So either no TR was seen or she has developed severe pulmonary hypertension since August 2018. Her chest x-ray shows pulmonary edema, mild. Physical Examination: General: She is 5 feet 5 inches, 104 pounds. Alert, oriented, pleasant. She is not in distress. Heart: Reveals a regular rate and rhythm. There is no significant murmur or gallop. Abdomen: Soft. Lungs: Reveal some crackles more in the bases, but they are very mild. Extremities: No cyanosis, clubbing, or edema. Distal pulses are palpable. The patient should probably have a CAT scan of her chest to rule out pulmonary embolus. Consider a consultation with Pulmonary regarding the severe pulmonary hypertension that were seen. Her estimated PA pressure was 75 mmHg. SARAH/MALLORIE Voice ID: [id number] Report ID: [id number] MTDD
[2019-04-09] MEDS: ALPRAZOLAM 0.5 MG TABLET PO PRN (21:58)
[2019-04-09] MEDS: GUAIFENESIN 600 MG SA TAB PO SCH (22:00)
[2019-04-10 04:39] LABS: Absolute Lymphocytes (CBC) 0.7 K/uL (0.7-4.9); Basophils % 0.1 % (0-1.3); Hematocrit 29.8 % (36.0-45.0); Lymphocytes % 5.2 % (15.3-44.8); RBC Red Blood Cell Count 3.53 M/uL (3.86-4.86)
[2019-04-10 04:51] LABS: Protime INR 6.33
[2019-04-10 04:59] LABS: Albumin 2.9 g/dL (3.4-5.0); Bilirubin Total 0.8 mg/dL (0.2-1.0); Magnesium 2.3 mg/dL (1.8-2.4); Potassium 3.1 mmol/L (3.5-5.1); Protein, Total 7.6 g/dL (6.4-8.2)
[2019-04-10] MEDS: POTASSIUM 25 MEQ EFFERV TAB PO ONE ×2 (06:44→09:58)
--- NOTE | 2019-04-10 07:32 | RAD REPORT ---
EXAM DESCRIPTION: RAD - Chest Pa And Lat (2 Views) - 04/10/2019 6:55 am CLINICAL HISTORY: Follow up CHF, CHF COMPARISON: April 09 TECHNIQUE: PA and lateral views of the chest were obtained. FINDINGS: The lungs are fibrotic as a baseline. Extensive interstitial and alveolar opacities have i mproved. Substantial opacification remains. Heart size is normal and central vasculature is within normal limits. No pleural effusion or pneumothorax seen. No acute bony finding noted. No aortic ab normality. IMPRESSION: Partial clearing of bilateral interstitial and alveolar opacification.
[2019-04-10] MEDS: FLUOXETINE 20 MG CAP PO SCH (09:58)
[2019-04-10] MEDS: METOPROLOL TAR 50 MG TAB PO SCH ×2 (09:58→21:47)
[2019-04-10] MEDS: AMIODARONE HCL 200 MG TAB PO SCH ×2 (09:58→21:47)
[2019-04-10] MEDS: GUAIFENESIN 600 MG SA TAB PO SCH ×2 (09:58→21:47)
[2019-04-10] MEDS: FUROSEMIDE 40 MG/4 ML VIAL IV SCH ×2 (09:59→18:12)
--- NOTE | 2019-04-10 15:34 | P.PN ---
Subjective Date of Service: 04/10/19 Primary Care Provider: unknown Chief Complaint: Shortness of breath shortness of breath Patient seen and examined at bedside with RN. Chart reviewed. Currently sitting at the edge of the bed eating her breakfast. Doing well overall. Currently on 4 L of oxygenation. Denies having any shortness of breath nausea vomiting abdominal pain or chest pain at this time Review of Systems 10-point ROS is otherwise unremarkable Physical Examination - Vital Signs Temperature: 97.2 F Blood Pressure: 134/65 Pulse: 67 Respirations: 20 Pulse Ox (%): 92 - Physical Exam General: Alert, In no apparent distress HEENT: Atraumatic, PERRLA, EOMI Neck: Supple, JVD not distended Respiratory: Clear to auscultation bilaterally, Normal air movement Cardiovascular: Regular rate/rhythm, Normal S1 S2 Gastrointestinal: Normal bowel sounds, No tenderness Musculoskeletal: No tenderness Integumentary: No rashes Neurological: Normal speech, Normal tone, Normal affect Lymphatics: No axilla or inguinal lymphadenopathy - Studies Laboratory Data (last 24 hrs) 04/10/19 03:35: Sodium 138, Potassium 3.1 L, BUN 21 H, Creatinine 0.97, Glucose 108 H, Magnesium 2.3, Total Bilirubin 0.8, AST 83 H, ALT 83 H, Alkaline Phosphatase 115 04/10/19 03:35: PT 69.6 H, INR 6.33 H* 04/10/19 03:35: WBC 12.6 H, Hgb 10.2 L, Hct 29.8 L, Plt Count 261 Medications List Reviewed: Yes Assessment And Plan - Current Problems (Diagnosis) (1) Acute diastolic CHF (congestive heart failure) Current Visit: Yes Status: Acute (2) Warfarin-induced coagulopathy Current Visit: Yes Status: Acute (3) Atrial fibrillation Current Visit: Yes Status: Acute Qualifiers: Atrial fibrillation type: longstanding persistent Qualified Code(s): I48.11 - Longstanding persistent atrial fibrillation (4) Hypertension Current Visit: Yes Status: Chronic Qualifiers: Hypertension type: essential hypertension Qualified Code(s): I10 - Essential (primary) hypertension - Plan Assessment/ Plan: Acute on chronic diastolic CHF: Continue with IV Lasix at this time. Fluid restriction along with weight daily. Strict I&Os. Cardiology is consulted. Appreciated recommendations at this time. Supra therapeutic INR: INR today is 6.1. Will continue to hold Coumadin at this time. Negative for bleeding. Will recheck INR tomorrow morning. Chronic atrial fibrillation on chronic anti coagulation therapy-Coumadin: Will hold Coumadin at this time due to supratherapeutic INR. Will continue with amiodarone at this time. Cardiology consulted. Appreciated recommendations. Hypertension: Continue with medication. Will monitor and adjust appropriately. Depression with anxiety: Continue medication. Anemia of chronic disease with iron deficiency: Start Iron P.o. Will monitor closely. Chronic pain: Restart home medication. Discharge Plan: Home Plan to discharge in: Greater than 2 days - Code Status/Comfort Care Code Status Assessed: Yes Critical Care: No
--- NOTE | 2019-04-10 18:46 | PN ---
Date of Progress Note: 04/10/2019 Subjective: Ms. Nichole was admitted by Dr. Lopez on 04/09/2019 for shortness of breath, was seen by Lon Ferguson. It was thought that her breathing is secondary to severe pulmonary hypertension that is p retty new onset. A chest CT to rule out pulmonary embolus is pending. She was in atrial fibrillatio n initially, now she is in sinus rhythm. Chest x-ray showed pulmonary edema, may have some diastolic congestive heart failure. We will continue to diurese. Check on the CTA. Her INR was still 6.33 y esterday. INR is pending for today. Continue to hold Coumadin. We will continue to follow. VEL/MALLORIE Voice ID: [id number] Report ID: [id number]
[2019-04-10] MEDS: ALPRAZOLAM 0.5 MG TABLET PO PRN (21:46)
[2019-04-10] MEDS: HYDROCODONE/APAP 7.5/325 MG TAB PO PRN (21:46)
[2019-04-11 04:32] LABS: Absolute Lymphocytes (CBC) 0.7 K/uL (0.7-4.9); Basophils % 0.6 % (0-1.3); Hematocrit 30.3 % (36.0-45.0); Lymphocytes % 9.3 % (15.3-44.8); RBC Red Blood Cell Count 3.57 M/uL (3.86-4.86)
[2019-04-11 04:34] LABS: Protime INR 3.49
[2019-04-11 04:45] LABS: Magnesium 2.4 mg/dL (1.8-2.4); Potassium 3.2 mmol/L (3.5-5.1)
[2019-04-11] MEDS ORDERED: POTASSIUM 25 MEQ EFFERV TAB PO ONE (05:11)
--- NOTE | 2019-04-11 08:17 | P.CNS ---
Date of Consult: 04/11/19 Primary Care Provider: unknown Chief Complaint: Pulmonary hypertension History of Present Illness: Patient is 83 years of age admitted with acute onset of shortness of breath she is found to be in pulmonary edema no prior history of coronary artery disease denies any fever chills cough sputum or hemoptysis was feeling better on Lasix Allergies No Known Allergies Allergy (Unverified 08/27/18 19:16) Home Medications: Alprazolam [Xanax] 0.5 mg PO BID PRN 08/28/18 Amiodarone HCl [Cordarone*] 1 tab PO DAILY 08/28/18 Calcium Carb/Mag Ox/Zinc Sulf [Sczctse-Yljfixyzi-Tlob Tablet] 1 tab PO BID 08/28 Estradiol 0.5 mg PO DAILY 08/28/18 Fluoxetine HCl 20 mg PO DAILY 08/28/18 Furosemide 40 mg PO DAILY 08/28/18 Hydrocodone 7.5/APAP 325 [[place] 7.5/325 mg*] 1 tab PO TID 08/28/18 Metoprolol Tartrate 50 mg PO BID 08/28/18 Docusate [Colace Cap*] 100 mg PO DAILY #30 cap 09/01/18 Ensure Enlive 237 ml PO BID #60 can 09/01/18 Multivitamin with Iron [Multivitamins with Iron] 1 each PO DAILY #30 tablet Amlodipine [Norvasc] 5 mg PO DAILY 04/09/19 Potassium Chloride 10 meq PO DAILY 04/09/19 Warfarin Sodium [Coumadin] 3 mg PO DAILY 5 PM 04/09/19 - Past Medical/Surgical History Diabetic: No -: Congestive heart failure exacerbation -: anxiety -: arthritis -: Atrial fibrillation -: depression -: Hypertension -: hysterectomy - Family History Father Family History: Reviewed- Non-Contributory - Social History Alcohol use: Yes CD- Drugs: Yes Caffeine use: Yes Place of Residence: Home Review of Systems 10-point ROS is otherwise unremarkable General: Weakness Respiratory: Shortness of Breath Physical Examination Temp Pulse Resp BP Pulse Ox 96.9 F 59 16 138/69 97 04/11/19 04:00 04/11/19 04:00 04/11/19 04:00 04/11/19 04:00 04/11/19 04:00 General: Alert, Oriented x3 HEENT: Atraumatic Neck: Supple Respiratory: Clear to auscultation bilaterally Cardiovascular: No edema Gastrointestinal: Normal bowel sounds, Soft and benign Musculoskeletal: No clubbing, No swelling Integumentary: No rashes, No breakdown - Problems (1) Acute diastolic CHF (congestive heart failure) Current Visit: Yes Status: Acute Plan: Patient is 83 years of age admitted with acute onset of shortness of breath pulmonary edema possible acute diastolic dysfunction patient hypoxic chest x- ray bilateral pulmonary infiltrates echocardiogram shows severe pulmonary hypertension no evidence of right ventricular dilatation no pulmonary embolism pulmonary hypertension slowly secondary to last patient has improved with IV Lasix no evidence of sepsis chest x-ray improve with diuresis patient's INR is elevated repeat echo in a few weeks
[2019-04-11] MEDS: HYDROCODONE/APAP 7.5/325 MG TAB PO PRN (09:30)
[2019-04-11] MEDS: FLUOXETINE 20 MG CAP PO SCH (09:31)
[2019-04-11] MEDS: FUROSEMIDE 40 MG/4 ML VIAL IV SCH (09:31)
[2019-04-11] MEDS: SPIRONOLACTONE 25 MG TABLET PO SCH (09:31)
[2019-04-11] MEDS: METOPROLOL TAR 50 MG TAB PO SCH ×2 (09:31→21:01)
[2019-04-11] MEDS: AMIODARONE HCL 200 MG TAB PO SCH ×2 (09:32→21:00)
[2019-04-11] MEDS: ALPRAZOLAM 0.5 MG TABLET PO PRN (09:36)
[2019-04-11] MEDS: GUAIFENESIN 600 MG SA TAB PO SCH ×2 (09:36→21:00)
--- NOTE | 2019-04-11 12:52 | P.PN ---
Subjective Date of Service: 04/11/19 Primary Care Provider: unknown Chief Complaint: Pulmonary hypertension Patient seen and examined at bedside with RN. Chart reviewed. Currently sitting at the edge of the bed eating her breakfast. Doing well overall. Currently on 2 L of oxygenation. Denies having any shortness of breath nausea vomiting abdominal pain or chest pain at this time Review of Systems 10-point ROS is otherwise unremarkable Physical Examination - Vital Signs Temperature: 96.8 F Blood Pressure: 120/70 Pulse: 57 Respirations: 18 Pulse Ox (%): 97 - Physical Exam General: Alert, In no apparent distress HEENT: Atraumatic, PERRLA, EOMI Neck: Supple, JVD not distended Respiratory: Clear to auscultation bilaterally, Normal air movement Cardiovascular: Regular rate/rhythm, Normal S1 S2 Gastrointestinal: Normal bowel sounds, No tenderness Musculoskeletal: No tenderness Integumentary: No rashes Neurological: Normal speech, Normal tone, Normal affect Lymphatics: No axilla or inguinal lymphadenopathy - Studies Microbiology Data (last 24 hrs): 04/09/19 13:12 Clean Catch Urine [place] Count - Final 04/09/19 13:12 Clean Catch Urine - Final No growth. Medications List Reviewed: Yes Assessment And Plan - Current Problems (Diagnosis) (1) Acute diastolic CHF (congestive heart failure) Current Visit: Yes Status: Acute (2) Warfarin-induced coagulopathy Current Visit: Yes Status: Acute (3) Atrial fibrillation Current Visit: Yes Status: Acute Qualifiers: Atrial fibrillation type: longstanding persistent Qualified Code(s): I48.11 - Longstanding persistent atrial fibrillation (4) Hypertension Current Visit: Yes Status: Chronic Qualifiers: Hypertension type: essential hypertension Qualified Code(s): I10 - Essential (primary) hypertension - Plan Assessment/ Plan: Acute on chronic diastolic CHF: Continue with IV Lasix at this time, but lower dose to 20mg BID today. Fluid restriction along with weight daily. Strict I& Os. Cardiology is consulted. Appreciated recommendations at this time. Supra therapeutic INR: INR today is 3.49. Will continue to hold Coumadin at this time. Negative for bleeding. Will recheck INR tomorrow morning. Chronic atrial fibrillation on chronic anti coagulation therapy-Coumadin: Will hold Coumadin at this time due to supratherapeutic INR. Will continue with amiodarone at this time. Cardiology consulted. Appreciated recommendations. Hypertension: Continue with medication. Will monitor and adjust appropriately. Depression with anxiety: Continue medication. Anemia of chronic disease with iron deficiency: Start Iron P.o. Will monitor closely. Chronic pain: Restart home medication. Dispo: Pending Clinical Improvement. Discharge Plan: Home Plan to discharge in: Greater than 2 days - Code Status/Comfort Care Code Status Assessed: Yes Critical Care: No
[2019-04-11] MEDS: FUROSEMIDE 20 MG/ 2ML VIAL IV SCH (17:20)
[2019-04-11] MEDS ORDERED: POTASSIUM CL SA 10 MEQ TAB PO ONE (21:00)
[2019-04-11] MEDS: ENSURE ENLIVE 237 ML CAN PO SCH (21:02)
[2019-04-12 05:52] LABS: Protime INR 2.76
[2019-04-12] MEDS: METOPROLOL TAR 50 MG TAB PO SCH (09:36)
[2019-04-12] MEDS: GUAIFENESIN 600 MG SA TAB PO SCH (09:36)
[2019-04-12] MEDS: FUROSEMIDE 20 MG/ 2ML VIAL IV SCH ×2 (09:37→16:36)
[2019-04-12] MEDS: FLUOXETINE 20 MG CAP PO SCH (09:37)
[2019-04-12] MEDS: AMIODARONE HCL 200 MG TAB PO SCH (09:37)
[2019-04-12] MEDS: ENSURE ENLIVE 237 ML CAN PO SCH (09:38)
[2019-04-12] MEDS: SPIRONOLACTONE 25 MG TABLET PO SCH (09:55)
--- NOTE | 2019-04-12 12:41 | P.DS ---
Admission Date: 04/10/19 Discharge Date: 04/12/19 Primary Care Provider: unknown Disposition: ROUTINE DISCHARGE Discharge Condition: GOOD Reason for Admission: Pulmonary hypertension - Problems (1) Acute diastolic CHF (congestive heart failure) Current Visit: Yes Status: Acute (2) Warfarin-induced coagulopathy Current Visit: Yes Status: Acute (3) Atrial fibrillation Current Visit: Yes Status: Acute Qualifiers: Atrial fibrillation type: longstanding persistent Qualified Code(s): I48.11 - Longstanding persistent atrial fibrillation (4) Hypertension Current Visit: Yes Status: Chronic Qualifiers: Hypertension type: essential hypertension Qualified Code(s): I10 - Essential (primary) hypertension Brief History of Present Illness: Patient is an 83-year-old female who comes to the hospital with difficulty breathing. Patient lives [facility] Patient has been taking her medications as prescribed. She became short of breath and came to the hospital for further evaluation. In the emergency room, her chest x-ray revealed bilateral pulmonary edema. Patient was given IV Lasix. Patient has diuresed extensively in the emergency room. Patient will be admitted for observation. She had an echocardiogram done about 7 months ago which revealed a normal ejection fraction. Patient also had some decreased left ventricular compliance. BNP was also elevated. Will get Cardiology consultation as well. Incidentally, patient was found have an elevated INR level. Patient has no active bleeding noted. Patient is on amiodarone with the Coumadin. Currently patient is taking 200 mg b.i.d.. We could probably reduce this to 200 mg daily which may prevent her could min levels from getting toxic. Will also need to reduce her Coumadin level prior to discharge home. Hospital Course: Overall during the hospital stay patient remained stable Patient was initially admitted to the hospital for CHF exacerbation and supratherapeutic INR. For patient's CHF exacerbation versus the patient was started on IV Lasix here in the hospital cardiology was consulted. Who agreed with the plan of starting patient on IV Lasix. Spironolactone was added as well to help with the congestive heart failure. Patient had marked improvement in her symptoms. Patient was attempted to be weaned off of oxygen however was not successful. Patient still saturating 88% on room air even after acute phase resolved. Patient does have home oxygenation set up for her once it was set up she was discharged home under stable condition. For patient's supratherapeutic INR warfarin was on hold here in the hospital. Patient's INR did come back to the therapeutic ranges and thus patient was restarted back on Coumadin and was asked to follow up with primary care provider in about 1 week post discharge to measure her INR. Patient did not have any acute bleeding and thus no vitamin K or FFP was given. Patient continued to work with PTOT while here in the hospital. Had marked improvement. Home health was arranged along with home oxygenation and patient was discharged home on Lasix [place] lactone and to resume all other medication as per her primary care provider. Vital Signs/Physical Exam: Temp Pulse Resp BP Pulse Ox 98.1 F 63 16 123/59 L 98 04/12/19 12:00 04/12/19 12:00 04/12/19 12:00 04/12/19 12:00 04/12/19 12:00 General: Alert, In no apparent distress HEENT: Atraumatic, PERRLA, EOMI Neck: Supple, JVD not distended Respiratory: Clear to auscultation bilaterally, Normal air movement Cardiovascular: Regular rate/rhythm, Normal S1 S2 Gastrointestinal: Normal bowel sounds, No tenderness Musculoskeletal: No tenderness Integumentary: No rashes Neurological: Normal speech, Normal tone, Normal affect Lymphatics: No axilla or inguinal lymphadenopathy Laboratory Data at Discharge: WBC 8.0 K/uL (4.3-10.9) D 04/11/19 03:40 Hgb 10.2 g/dL (12.0-15.0) L 04/11/19 03:40 Hct 30.3 % (36.0-45.0) L 04/11/19 03:40 Plt Count 275 K/uL (152-406) 04/11/19 03:40 PT 31.3 SECONDS (9.5-12.5) H 04/12/19 05:22 INR 2.76 04/12/19 05:22 APTT 50.5 SECONDS (24.3-36.9) H 04/09/19 03:49 Sodium 135 mmol/L (136-145) L 04/12/19 05:22 Potassium 4.0 mmol/L (3.5-5.1) 04/12/19 05:22 BUN 24 mg/dL (7-18) H 04/12/19 05:22 Creatinine 0.80 mg/dL (0.55-1.3) 04/12/19 05:22 Glucose 96 mg/dL (74-106) 04/12/19 05:22 Magnesium 2.4 mg/dL (1.8-2.4) 04/11/19 03:40 Total Bilirubin 0.8 mg/dL (0.2-1.0) 04/10/19 03:35 AST 83 U/L (15-37) H 04/10/19 03:35 ALT 83 U/L (12-78) H 04/10/19 03:35 Alkaline Phosphatase 115 U/L (45-117) 04/10/19 03:35 Lipase 142 U/L (73-393) 04/09/19 03:49 Home Medications: Alprazolam [Xanax] 0.5 mg PO BID PRN 08/28/18 Amiodarone HCl [Cordarone*] 1 tab PO DAILY 08/28/18 Calcium Carb/Mag Ox/Zinc Sulf [Vfmuvvy-Jonuzpxte-Ddfp Tablet] 1 tab PO BID 08/28 Estradiol 0.5 mg PO DAILY 08/28/18 Fluoxetine HCl 20 mg PO DAILY 08/28/18 Furosemide 40 mg PO DAILY 08/28/18 Hydrocodone 7.5/APAP 325 [[place] 7.5/325 mg*] 1 tab PO TID 08/28/18 Docusate [Colace Cap*] 100 mg PO DAILY #30 cap 09/01/18 Ensure Enlive 237 ml PO BID #60 can 09/01/18 Multivitamin with Iron [Multivitamins with Iron] 1 each PO DAILY #30 tablet Potassium Chloride 10 meq PO DAILY 04/09/19 Warfarin Sodium [Coumadin*] 3 mg PO DAILY 5 PM 04/09/19 Metoprolol Tartrate 25 mg PO BID #60 tablet 04/12/19 Spironolactone [Aldactone*] 25 mg PO DAILY #30 tab 04/12/19 New Medications: Metoprolol Tartrate 25 mg PO BID #60 tablet Spironolactone [Aldactone*] 25 mg PO DAILY #30 tab Diet: Regular Activity: Ad jing Followup: Marcell Archer MD [ACTIVE - CAN ADMIT] -
[2019-04-12 16:34] VITALS: O2SAT 95
[2019-04-12 16:37] VITALS: BP 121/62
[2019-04-12 16:48] VITALS: TEMP 98.2
--- NOTE | 2019-04-12 21:03 | PN ---
Date of Progress Note: 04/12/2019 Ms. Nichole was admitted by Dr. Magaña on 04/10/2019 for congestive heart failure. She is an 83-year-o ld woman. She has a history of severe pulmonary hypertension, diastolic congestive heart failure, at rial fibrillation. She was in sinus rhythm right now. Her last INR was 3.49. She has diuresed well . She is feeling better, can probably go home, suggested using different anticoagulation . I will have her discuss that with Dr. Magaña. She can go home from my standpoint. VEL/MALLORIE Voice ID: [id number] Report ID: [id number]
--- OUTSIDE RECORDS SUMMARY | 2019-04-22 12:43 | XMS REPORT ---
:1935 Author [facility] Address [facility] Dos Santos [address] [place] [id number] Care Team Providers Name Role Phone Unavailable Unavailable Unavailable Problems This patient has no known problems. Allergies, Adverse Reactions, Alerts This patient has no known allergies or adverse reactions. Medications This patient has no known medications.
== END 2019-04-12 17:54 | disposition home health service (06) | DRG 292 ==
LOC: ER 03:39 → INTOOBSV 06:49 → ERHOLD 06:49 → OBSVTOIN 06:49 → 4TH 07:30 → OBSVTOIN 04-10 10:15
PROVIDERS: ADMIT Hospitalist; ATTEND Hospitalist
DX: I11.0 Hypertensive heart disease with heart failure (principal); I48.11 Longstanding persistent atrial fibrillation; D68.9 Coagulation defect, unspecified; I50.33 Acute on chronic diastolic (congestive) heart failure; F41.8 Other specified anxiety disorders; G89.29 Other chronic pain; D50.9 Iron deficiency anemia, unspecified; Z79.01 Long term (current) use of anticoagulants
CPT/HCPCS: 36415; 71045; 71046; 71275; 80048; 80053; 80076; 81001; 82550; 82553; 82607; 82728; 82805; 83540; 83690; 83735; 83880; 84132; 84439; 84443; 84466; 84484; 85025; 85379; 85610; 85730; 87086; 87088; 93005; 93306; 94660; 96374; 97110; 97112; 97116; 97161; 97530; 99285; G0378; J1940; Q9967

== ENCOUNTER 2023-04-19 20:54 | Inpatient (IN) | payer OTHER ==
--- OUTSIDE RECORDS SUMMARY | 2023-04-19 20:57 | XMS REPORT | Continuity of Care Document ---
:[address] [facility] t Address [address] [place] [address] [address] [place] [address] Care Team Providers Name Role Phone JUS SURESH Attending Clinician Unavailable Problems This patient has no known problems. Allergies, Adverse Reactions, Alerts Allergy Allergy Status Severity Reaction(s) Onset Inactive Treating Comm ents Source Name Type Date Date Clinician NO KNOWN Drug Active [facility] ALLERGIE Class [facility] Medications This patient has no known medications. Procedures This patient has no known procedures. Encounters Start End Encounter Admission Attending Care Care Encounter Source Date/Time Date/Time Type Type Clinicians Facility Department ID 2021-09-22 2021-09-22 Outpatient [facility] [id number] N-20 [facility] 13:30:00 13:30:00 JUS [id number] [facility] Results This patient has no known results.
--- NOTE | 2023-04-19 21:34 | RAD REPORT ---
EXAM DESCRIPTION: RAD - Chest Single View - 04/19/2023 9:26 pm CLINICAL HISTORY: COUGH Chest pain. COMPARISON: <Comparisons> FINDINGS: Portable technique limits examination quality. Emphysematous changes are present with mild pulmonary edema suspected. The heart is moderately enlarg ed in size. No displaced fractures.Aortic atherosclerosis. IMPRESSION: [id number]-[id number] CHF is suspected.
[2023-04-19 21:40] LABS: Absolute Lymphocytes (CBC) 0.7 K/uL (0.7-4.9); Lymphocytes % 9.5 % (15.3-44.8); MCV 78.7 fL (80-100); MPV 7.6 fL (7.6-11.3); Platelets 237 thou/uL (152-406); RBC Red Blood Cell Count 3.56 M/uL (3.86-4.86)
[2023-04-19 21:44] LABS: Protime INR 2.19
[2023-04-19 22:10] LABS: Albumin 2.9 g/dL (3.4-5.0); Bilirubin Direct 0.1 mg/dL (0-0.2); Bilirubin Indirect, Calculated 0.3 mg/dL (0.2-0.8); Bilirubin Total 0.4 mg/dL (0.2-1.0); Magnesium 2.1 mg/dL (1.6-2.4); Potassium 4.2 mEq/L (3.5-5.1); Protein, Total 7.3 g/dL (6.4-8.2)
--- NOTE | 2023-04-19 22:12 | ER ---
Nurse's Notes [facility] Name: Ashtyn Nichole Age: 87 yrs Sex: Female : 1935 Arrival Date: 04/19/2023 Time: 20:54 Bed 2 Private MD: Diagnosis: Combined systolic (congestive) and diastolic (congestive) heart failure;Anemia, unspecified;Dyspnea;Cough;SARS-associated coronavirus as the cause of diseases classified elsewhere;FCI (current) use of anticoagulants Presentation: 04/19 21:00 Chief complaint: EMS states: SOB x3 days, feels better laying down. Reports productive kd3 cough with yellow mucous. Coronavirus screen: Vaccine status:. Ebola Screen: Patient denies travel to an Ebola-affected area in the 21 days before illness onset. No symptoms or risks identified at this time. Initial Sepsis Screen: Does the patient meet any 2 criteria? No. Patient's initial sepsis screen is negative. Does the patient have a suspected source of infection? No. Patient's initial sepsis screen is negative. Risk Assessment: Do you want to hurt yourself or someone else? Patient reports no desire to harm self or others. Onset of symptoms was March 16, 2023. Care prior to arrival: None. Activity prior to arrival: None. 21:00 Method Of Arrival: EMS: [facility] kd3 21:00 Acuity: CARL 3 kd3 Triage Assessment: 21:18 General: Appears in no apparent distress. Behavior is calm, cooperative, appropriate kd3 for age. Neuro: No deficits noted. Johnston Agitation-Sedation Scale (RASS): 0 - Alert and Calm Level of Consciousness is awake, alert, obeys commands, Reports. Cardiovascular: No deficits noted. Denies chest pain, Heart tones S1 S2 Capillary refill < 3 seconds is brisk Pulses are all present. Rhythm is sinus rhythm. Historical: - PMHx: 21:18 Anxiety; Arthritis; Hypertension; Depression; Atrial Fib; CHF; kd3 - Immunization history:: Client reports receiving the 2nd dose of the Covid vaccine, Flu vaccine is up to date. - Social history:: Smoking status: Patient denies any tobacco usage or history of. - Family history:: not pertinent. - Code Status:: Full code. Screenin/08 00:14 [facility] ED Fall Risk Assessment (Adult) History of falling in the last 3 months, la4 including since admission No falls in past 3 months (0 pts) Confusion or Disorientation No (0 pts) Intoxicated or Sedated No (0 pts) Impaired Gait No (0 pts) Mobility Assist Device Used No (0 pt) Altered Elimination No (0 pt) Score/Fall Risk Level 0 - 2 = Low Risk. Abuse screen: Denies threats or abuse. Denies injuries from another. Nutritional screening: No deficits noted. Tuberculosis screening: No symptoms or risk factors identified. Assessment: 04/19 22:30 General: Appears in no apparent distress. Behavior is calm, cooperative, appropriate kd3 for age. Pain: Denies pain. Neuro: No deficits noted. Johnston Agitation-Sedation Scale (RASS): 0 - Alert and Calm Level of Consciousness is awake, alert, obeys commands, Oriented to person, place, time, situation, Appropriate for age Vending Machine Assembler are equal bilaterally Moves all extremities. Gait is steady, Speech is normal, Facial symmetry appears normal, Pupils are PERRLA, Pupil Size: 3 Intact. 23:24 Reassessment: Patient appears in no apparent distress at this time. No changes from km8 previously documented assessment. Patient and/or family updated on plan of care and expected duration. Pain level reassessed. Patient is alert, oriented x 3, equal unlabored respirations, skin warm/dry/pink. Patient states feeling better. 23:47 General: Attempted report and nurse not available. Will wait 15 minutes and attempt to kd3 call report again. Urine collected via purewick. . Vital Signs: 21:00 BP 139 / 75; Pulse 66; Resp 18; Temp 98.2; Pulse Ox 97% on R/A; Weight 55 kg; Height 5 kd3 ft. 5 in. ; Pain 0/10; 21:00 BP 139 / 75 LA; Pulse 66; Resp 18; Temp 98.2(O); Pulse Ox 97% on R/A; Weight 55 kg; kd3 Height 5 ft. 5 in. ; Pain 0/10; 22:17 BP 150 / 75; Pulse 55; Resp 16; Pulse Ox 99% on 2 lpm NC; km8 23:24 BP 136 / 70; Pulse 52; Resp 16; Pulse Ox 99% on 2 lpm NC; km8 21:00 Body Mass Index 20.18 (55.00 kg, 165.1 cm) kd3 21:00 Pain Scale: Adult kd3 21:00 Pain Scale: Adult kd3 ED Course: 20:55 Patient arrived in ED. rv1 20:59 Maribel Weaver, NARDA is Primary Nurse. kd3 21:00 Arm band placed on left wrist. Patient placed in an exam room, on a stretcher, on kd3 oxygen, on quality assurance monitor, on pulse oximetry. EKG completed in triage. Results shown to MD. 21:03 Lucian Caldera MD is Attending Physician. ying 21:18 Triage completed. kd3 21:28 XRAY Chest (1 view) In Process Unspecified. EDMS 22:10 Chet Aguilar MD is Hospitalizing Provider. ying 22:20 CT Traumagram (Head C Spine CAP wo con) In Process Unspecified. EDMS 23:25 No provider procedures requiring assistance completed. km8 23:25 Provided Education on: admission process. km8 04/20 00:16 Patient admitted, IV remains in place. la4 00:17 Patient has correct armband on for positive identification. Placed in gown. Bed in low la4 position. Call light in reach. Side rails up X2. Client placed on continuous cardiac and pulse oximetry monitoring. NIBP monitoring applied. environmental monitoring specialist on. Administered Medications: 04/19 22:05 Not Given (Duplicate Order): ns 0.9% 1000 ml IV at 125 ml/hr continuous ying 22:20 Drug: Furosemide IVP 40 mg IVP once; give over 2 minutes Route: IVP; Infused Over: 2 kd3 mins; Site: right forearm; 22:46 Follow up: Response: No adverse reaction km8 22:30 Drug: Rocephin IV 1 grams IV at per protocol once; Given slow IV push per pharmacy kd3 instructions Route: IV; Rate: per protocol; Infused Over: 20 mins; Site: right forearm; 22:53 Follow up: IV Status: Completed infusion; IV Intake: 50ml km8 22:52 Drug: Famotidine IVP 40 mg IVP once; dilute with 10 mL 0.9% NaCl; give over 2 minutes km8 Route: IVP; Site: right wrist; 23:23 Follow up: Response: No adverse reaction km8 Medication: 23:25 VIS not applicable for this client. km8 Intake: 22:53 IV: 50ml; Total: 50ml. km8 Outcome: 22:11 Decision to Hospitalize by Provider. ying 04/20 00:15 Admitted to Med/surg via stretcher, with chart, Report called to Carolina meyer Condition: good Instructed on the need for admit, 00:27 Patient left the ED. mitch Signatures: Dispatcher [employer] EDMS Lucian Caldera MD MD cha Doucette, Kyli RN RN kd3 Mkiki Reece 1 Bernarda Oden RN RN km8 Vikash Roman RN RN la4 Corrections: (The following items were deleted from the chart) 04/19 21:52 21:36 Influenza Screen (A \T\ B)+BA.LAB.BRZ drawn and sent. [facility] EDCA 21:52 21:36 SARS-COV-2 RT PCR+MOL.LAB.BRZ drawn and sent. [address]
--- NOTE | 2023-04-19 22:12 | EDPHYS ---
Physician Documentation [facility] [place] Name: Ashtyn Nichole Age: 87 yrs Sex: Female : 1935 Arrival Date: 04/19/2023 Time: 20:54 Bed 2 Private MD: ED Physician Lucian Caldera HPI: 04/19 22:01 This 87 yrs old Female presents to ER via EMS with complaints of cough and yign sob. Historical: - PMHx: 21:18 Anxiety; Arthritis; Hypertension; Depression; Atrial Fib; CHF; kd3 - Immunization history:: Client reports receiving the 2nd dose of the Covid vaccine, Flu vaccine is up to date. - Social history:: Smoking status: Patient denies any tobacco usage or history of. - Family history:: not pertinent. - Code Status:: Full code. ROS: 22:05 Constitutional: Negative for fever, chills, and weight loss, Eyes: Negative for injury, ying pain, redness, and discharge, ENT: Negative for injury, pain, and discharge, Neck: Negative for injury, pain, and swelling, Cardiovascular: Negative for chest pain, palpitations, and edema, Abdomen/GI: Negative for abdominal pain, nausea, vomiting, diarrhea, and constipation, Back: Negative for injury and pain, : Negative for injury, bleeding, discharge, and swelling, MS/Extremity: Negative for injury and deformity, Skin: Negative for injury, rash, and discoloration, Neuro: Negative for headache, weakness, numbness, tingling, and seizure, Psych: Negative for depression, anxiety, suicide ideation, homicidal ideation, and hallucinations, Allergy/Immunology: Negative for hives, rash, and allergies, Endocrine: Negative for neck swelling, polydipsia, polyuria, polyphagia, and marked weight changes, Hematologic/Lymphatic: Negative for swollen nodes, abnormal bleeding, and unusual bruising, 22:05 Respiratory: Positive for cough, "sounds productive", shortness of breath, at rest. Exam: 22:05 Constitutional: This is a well developed, well nourished patient who is awake, alert, ying and in no acute distress. Head/Face: Normocephalic, atraumatic. Eyes: Pupils equal round and reactive to light, extra-ocular motions intact. Lids and lashes normal. Conjunctiva and sclera are non-icteric and not injected. Cornea within normal limits. Periorbital areas with no swelling, redness, or edema. ENT: Nares patent. No nasal discharge, no septal abnormalities noted. Tympanic membranes are normal and external auditory canals are clear. Oropharynx with no redness, swelling, or masses, exudates, or evidence of obstruction, uvula midline. Mucous membranes moist. Neck: Trachea midline, no thyromegaly or masses palpated, and no cervical lymphadenopathy. Supple, full range of motion without nuchal rigidity, or vertebral point tenderness. No Meningismus. Chest/axilla: Normal chest wall appearance and motion. Nontender with no deformity. No lesions are appreciated. Cardiovascular: Regular rate and rhythm with a normal S1 and S2. No gallops, murmurs, or rubs. Normal PMI, no JVD. No pulse deficits. Abdomen/GI: Soft, non-tender, with normal bowel sounds. No distension or tympany. No guarding or rebound. No evidence of tenderness throughout. Back: No spinal tenderness. No costovertebral tenderness. Full range of motion. Female : Normal external genitalia. Skin: Warm, dry with normal turgor. Normal color with no rashes, no lesions, and no evidence of cellulitis. MS/ Extremity: Pulses equal, no cyanosis. Neurovascular intact. Full, normal range of motion. Neuro: Awake and alert, GCS 15, oriented to person, place, time, and situation. Cranial nerves II-XII grossly intact. Motor strength 5/5 in all extremities. Sensory grossly intact. Cerebellar exam normal. Normal gait. Psych: Awake, alert, with orientation to person, place and time. Behavior, mood, and affect are within normal limits. 22:05 ECG was reviewed by the Attending Physician. 22:05 Respiratory: mild respiratory distress is noted, Respirations: normal, Breath sounds: rales, that are moderate, Respiratory rate: 22 Vital Signs: 21:00 BP 139 / 75; Pulse 66; Resp 18; Temp 98.2; Pulse Ox 97% on R/A; Weight 55 kg; Height 5 kd3 ft. 5 in. ; Pain 0/10; 21:00 BP 139 / 75 LA; Pulse 66; Resp 18; Temp 98.2(O); Pulse Ox 97% on R/A; Weight 55 kg; kd3 Height 5 ft. 5 in. ; Pain 0/10; 22:17 BP 150 / 75; Pulse 55; Resp 16; Pulse Ox 99% on 2 lpm NC; km8 23:24 BP 136 / 70; Pulse 52; Resp 16; Pulse Ox 99% on 2 lpm NC; km8 21:00 Body Mass Index 20.18 (55.00 kg, 165.1 cm) kd3 21:00 Pain Scale: Adult kd3 21:00 Pain Scale: Adult kd3 MDM: 21:03 Patient medically screened. [facility] 22:08 Differential diagnosis: Anemia Anxiety Reaction asthma, CHF exacerbation, Chronic ying Obstructive Pulmonary Disease obstructed airway, bronchitis, flu, URI, Myocardial Infarction pneumonia, Pneumothorax. Antibiotic administration: Rocephin and Zithromax given. Differential Diagnosis altered mental status, sepsis, flu. Immunization status: Pneumococcal vaccine: within last 5 years. Influenza vaccine: within last 5 years. Data reviewed: vital signs, nurses notes, EMS record, lab test result(s), EKG, radiologic studies, plain films. Consideration of Admission/Observation Patient was admitted/placed on observation. Escalation of care including admission/observation considered. I considered the following discharge prescriptions or medication management in the emergency department Medications were administered in the Emergency Department. See MAR. Independent interpretation of the following test(s) in the Emergency Department EKG: See my EKG interpretation above. Test considered but Not performed: Ultrasound no 2 d echo. Care significantly affected by the following chronic conditions: Hypertension, Congestive Heart Failure, Obesity, anxiety, depression, a fib. Counseling: I had a detailed discussion with the patient and/or guardian regarding the historical points, exam findings, and any diagnostic results supporting the discharge/admit diagnosis, lab results, radiology results, the need for further work-up and treatment in the hospital. 04/19 21:06 Order name: Basic Metabolic Panel; Complete Time: 22:32 [facility] 04/19 21:06 Order name: CBC with Diff; Complete Time: 22:05 [facility] 04/19 21:06 Order name: LFT's; Complete Time: 22:32 [facility] 04/19 21:06 Order name: Magnesium; Complete Time: 22:32 [facility] 04/19 21:06 Order name: NT PRO-BNP; Complete Time: 22:32 [facility] 04/19 21:06 Order name: PT-INR; Complete Time: 22:05 [facility] 04/19 21:06 Order name: Troponin HS; Complete Time: 22:32 [facility] 04/19 21:06 Order name: Urinalysis w/ reflexes [facility] 04/19 21:06 Order name: Lipase; Complete Time: 22:32 [facility] 04/19 21:06 Order name: Blood Culture Adult (2) [facility] 04/19 21:06 Order name: Lactate w/ 2H reflex if indic.; Complete Time: 22:05 [facility] 04/19 21:52 Order name: COVID-19/FLU A+B; Complete Time: 23:00 [facility] 04/19 22:34 Order name: CBC with Automated Diff [facility] 04/19 22:34 Order name: CBC with Automated Diff [facility] 04/19 22:34 Order name: Comprehensive Metabolic Panel [facility] 04/19 22:34 Order name: Comprehensive Metabolic Panel [facility] 04/19 22:34 Order name: Troponin High Sensitivity [facility] 04/19 22:34 Order name: Troponin High Sensitivity [facility] 04/19 22:34 Order name: Troponin High Sensitivity [facility] 04/19 22:34 Order name: Troponin High Sensitivity [facility] 04/19 21:06 Order name: XRAY Chest (1 view); Complete Time: 22:05 [facility] 04/19 21:06 Order name: CT Traumagram (Head C Spine CAP wo con); Complete Time: 22:32 [facility] 04/19 21:06 Order name: EKG; Complete Time: 21:08 [facility] 04/19 21:06 Order name: Cardiac monitoring; Complete Time: 21:32 [facility] 04/19 21:06 Order name: EKG - Nurse/Tech; Complete Time: 21:32 [facility] 04/19 21:06 Order name: IV Saline Lock; Complete Time: 21:45 [facility] 04/19 21:06 Order name: Labs collected and sent; Complete Time: 21:46 [facility] 04/19 21:06 Order name: O2 Per Protocol; Complete Time: 21:46 [facility] 04/19 21:06 Order name: O2 Sat Monitoring; Complete Time: 21:46 [facility] EC:05 Rate is 59 beats/min. Rhythm is regular. QRS [place] is Normal. CO interval is normal. QRS ying interval is normal. QT interval is normal. No Q waves. T waves are Normal. No ST changes noted. Clinical impression: NSR w/ Non-specific ST/T Changes and No evidence of ischemia. Interpreted by me. Reviewed by me. Administered Medications: 22:05 Not Given (Duplicate Order): ns 0.9% 1000 ml IV at 125 ml/hr continuous ying 22:20 Drug: Furosemide IVP 40 mg IVP once; give over 2 minutes Route: IVP; Infused Over: 2 kd3 mins; Site: right forearm; 22:46 Follow up: Response: No adverse reaction [facility] 22:30 Drug: Rocephin IV 1 grams IV at per protocol once; Given slow IV push per pharmacy kd3 instructions Route: IV; Rate: per protocol; Infused Over: 20 mins; Site: right forearm; 22:53 Follow up: IV Status: Completed infusion; IV Intake: 50ml [facility] 22:52 Drug: Famotidine IVP 40 mg IVP once; dilute with 10 mL 0.9% NaCl; give over 2 minutes km8 Route: IVP; Site: right wrist; 23:23 Follow up: Response: No adverse reaction 8 Disposition Summary: 04/19/23 22:11 Hospitalization Ordered Notes: Hospitalization Status: Inpatient Admission ying Provider: Chet Aguilar cha [facility] ying Condition: Fair ying Problem: new ying Symptoms: have improved ying Bed/Room Type: Standard [facility] Room Assignment: 418(04/19/23 23:01) Diagnosis - Combined systolic (congestive) and diastolic (congestive) heart failure ying - Anemia, unspecified ying - Dyspnea ying - Cough ying - SARS-associated coronavirus as the cause of diseases classified elsewhere ying - alf (current) use of anticoagulants ying Forms: - Medication Reconciliation Form ying - SBAR form ying - Leadership Thank You Letter ying Signatures: Dispatcher [employer] EDXuan North RN Lucian Larios MD MD cha Doucette, Kyli RN RN kd3 Bernarda Oden RN RN km8 Corrections: (The following items were deleted from the chart) 21:52 21:08 SARS-COV-2 RT PCR+MOL.LAB.BRZ ordered. EDMS EDMS 21:52 21:08 Influenza Screen (A \\T\\ B)+BA.LAB.BRZ ordered. EDMS EDMS 23:01 22:11 ying sorenson
[2023-04-19] MEDS ORDERED: FUROSEMIDE 40 MG/4 ML VIAL ONE ×2 (22:20→22:57)
[2023-04-19] MEDS ORDERED: ONDANSETRON 4 MG/2 ML VIAL IV PRN (22:29)
[2023-04-19] MEDS ORDERED: MORPHINE 2 MG/ML SYR IV PRN (22:29)
[2023-04-19] MEDS ORDERED: ALBUTEROL 2.5 MG/3 ML NEB SOL NEB PRN (22:29)
[2023-04-19] MEDS ORDERED: ACETAMINOPHEN 500 MG TAB PO PRN (22:29)
--- NOTE | 2023-04-19 22:29 | P.HP ---
Certification for Inpatient Patient admitted to: Inpatient With expected LOS: >2 Midnights Patient will require the following post-hospital care: None Practitioner: I am a practitioner with admitting privileges, knowledge of patient current condition, hospital course, and medical plan of care. Services: Services provided to patient in accordance with Admission requirements found in Title 42 Section 412.3 of the Code of Federal Regulations Patient History Date of Service: 04/20/23 Reason for admission: SOB History of Present Illness: 87 yrs old Female with past medical history of hypertension depression, atrial fibrillation, CHF, anxiety, arthritis who presents to ER with complaints of cough and sob which started 2 to 3 days ago, progressively getting worse and was brought to ER . Denies any chest pain . No nausea vomiting or diarrhea Have subjective fever but not associated with any chills. Generalized body pain and malaise is present. Denies any dysuria. Shortness of breath worse with minimal exertion. Cough is productive with mucoid expectoration. Patient was assessed in the ER and was found to have COVID-positive and CHF exacerbation in the CT and x-ray chest and was admitted for further management . Allergies No Known Allergies Allergy (Unverified 08/27/18 19:16) Home medications list reviewed: Yes Home Medications: Alprazolam [Xanax] 0.5 mg PO BID PRN 08/28/18 Amiodarone HCl [Cordarone*] 1 tab PO DAILY 08/28/18 Calcium Carb/Mag Ox/Zinc Sulf [Mluzoeu-Accibnqwj-Taft Tablet] 1 tab PO BID 08/28/18 Fluoxetine HCl 20 mg PO DAILY 08/28/18 Furosemide 40 mg PO DAILY 08/28/18 Hydrocodone 7.5/APAP 325 [[place] 7.5/325 mg*] 1 tab PO TID 08/28/18 estradioL [Estradiol] 0.5 mg PO DAILY 08/28/18 Docusate [Colace Cap*] 100 mg PO DAILY #30 cap 09/01/18 Ensure Enlive 237 ml PO BID #60 can 09/01/18 Multivitamin with Iron [Multivitamins with Iron] 1 each PO DAILY #30 tablet 09/01/18 Potassium Chloride 10 meq PO DAILY 04/09/19 Warfarin Sodium [Coumadin*] 3 mg PO DAILY 5 PM 04/09/19 Metoprolol Tartrate 25 mg PO BID #60 tablet 04/12/19 Spironolactone [Aldactone*] 25 mg PO DAILY #30 tab 04/12/19 - Past Medical/Surgical History Diabetic: No Past Medical History: Reviewed- Non-Contributory -: Congestive heart failure exacerbation -: anxiety -: arthritis -: Atrial fibrillation -: depression -: Hypertension Past Surgical History: Reviewed- Non-Contributory -: hysterectomy - Family History Family History: Reviewed- Non-Contributory - Social History Smoking Status: Never smoker Alcohol use: Yes CD- Drugs: Yes Caffeine use: Yes Review of Systems 10-point ROS is otherwise unremarkable General: Fever, Weakness, Malaise Eyes: Unremarkable ENT: Unremarkable Respiratory: Cough, Shortness of Breath, SOB with Excertion Cardiovascular: Orthopnea, Unremarkable Gastrointestinal: Unremarkable Genitourinary: Unremarkable Musculoskeletal: Unremarkable Integumentary: Unremarkable Neurological: Unremarkable Lymphatics: Unremarkable Physical Examination - Vital Signs Temperature: 99.2 F Blood Pressure: 138/78 Pulse: 74 Respirations: 18 Pulse Ox (%): 98 - Physical Exam General: Alert, Oriented x3, Mild distress HEENT: Atraumatic, Normocephalic Neck: Supple, 2+ carotid pulse no bruit Respiratory: Diminished, Crackles/rales, Expiratory wheezes Cardiovascular: Normal pulses, Regular rate/rhythm, Normal S1 S2 Capillary refill: <2 Seconds Gastrointestinal: Soft and benign, W/out hepatosplenomegaly Musculoskeletal: No clubbing, No swelling Integumentary: No rashes, No breakdown Neurological: Normal speech, Normal strength at 5/5 x4 extr, Cranial nerves 3-12 intact, Normal reflexes 2+ Lymphatics: No axilla or inguinal lymphadenopathy - Studies Laboratory Data (last 24 hrs) 04/19/23 04/19/23 04/19/23 21:28 21:28 21:28 WBC 7.30 Hgb 9.3 L Hct 28.0 L Plt Count 237 PT 24.1 H INR 2.19 Sodium 130 L Potassium 4.2 BUN 23 H Creatinine 1.09 H Glucose 102 Magnesium 2.1 Total Bilirubin 0.4 AST 26 ALT 20 Alkaline Phosphatase 82 Lipase 41 Imagings Data: Reason for Exam: COUGH Report Status: Signed EXAM DESCRIPTION: RAD - Chest Single View - 04/19/2023 9:26 pm CLINICAL HISTORY: COUGH Chest pain. COMPARISON: <Comparisons> FINDINGS: Portable technique limits examination quality. Emphysematous changes are present with mild pulmonary edema suspected. The heart is moderately enlarged in size. No displaced fractures.Aortic atherosclerosis. IMPRESSION: [id number] CHF is suspected. Reason for Exam: Headache;Mental status change;Dizziness Report Status: Signed EXAM DESCRIPTION: CT - Head C Spine Cap Wo Con - 04/19/2023 10:18 pm CLINICAL HISTORY: Trauma, head and neck injury. Chest, abdomen and pelvis pain. Headache;Mental status change;Dizziness COMPARISON: Head Brain Wo Cont dated 08/27/2018; Chest Single View dated 04/19/2023; Chest For Pe Angio dated 04/09/2019 TECHNIQUE: CT head without contrast. CT cervical spine without contrast with coronal and sagittal reformatted images. CT chest, abdomen and pelvis without contrast with coronal and sagittal reformatted images of the spine. All CT scans are performed using dose optimization technique as appropriate and may include automated exposure control or mA/KV adjustment according to patient size. FINDINGS: CT HEAD WITHOUT CONTRAST: No intracranial hemorrhage, hydrocephalus or extra-axial fluid collection. Moderate generalized brain atrophy is present with moderate periventricular and deep white matter chronic microvascular ischemic changes. No areas of brain edema or midline shift. The paranasal sinuses and mastoids are clear. The calvarium is intact. CT CERVICAL SPINE WITHOUT CONTRAST: No fracture or subluxation. Moderate lower cervical degenerative changes are present. The prevertebral soft tissues are normal in thickness.Carotid atherosclerosis bilaterally. CT CHEST, ABDOMEN, PELVIS WITHOUT CONTRAST: NOTE: Lack of contrast is a significant limitation in the assessment of trauma related findings. Specifically, solid organ, vascular and bowel evaluation is significantly limited. Moderate bilateral ground-glass and alveolar lung opacities are present.No pneumothorax or pericardial/pleural fluid. RADIOLOGY SERVICES REPORT (Continued) Name: JEREMIAH BURRELL CC: Lucian Caldera MD; NONE JEREMIAH BURRELL / Report: [id number] Radiology Services Report Page 2 of 2 No evidence of intra-abdominal visceral injury, free fluid or free air is seen within the above detailed limitations. Fat containing moderate size right inguinal hernia is seen containing small section of colon. There is no evidence of bowel obstruction related to this. No fractures. Mild anterior wedge compression deformity affects the lower thoracic level, favored to be chronic. IMPRESSION: Negative for acute traumatic findings within the above detailed limitations. There are moderate alveolar glass opacities in both lungs which may represent pulmonary edema or infection/pneumonia. Dictated By: Nelson Long MD 04/19/23 223 Assessment and Plan - Problems (Diagnosis) (1) Acute diastolic CHF (congestive heart failure) Current Visit: No Status: Acute Plan: Elevated BNP Aggressive diuresis (2) Atrial fibrillation Current Visit: No Status: Chronic Plan: History of paroxysmal A-fib Right now in sinus rhythm Monitor under telemetry Qualifiers: Atrial fibrillation type: longstanding persistent Qualified Code(s): I48.11 - Longstanding persistent atrial fibrillation (3) Depression Current Visit: No Status: Chronic Plan: Continue home medications and titrate as needed - Plan Hyponatremia Electrolytes monitor replace accordingly Acute hypoxic respiratory failure Oxygen supplementation We will try to wean down oxygen requirement Bronchodilators Started on steroids Anemia of chronic disease Monitor CBC Transfuse as needed if hemoglobin is less than Discharge Plan: Home Plan to discharge in: Greater than 2 days - Advance Directives Does patient have a Living Will: Yes Does patient have a Durable POA for Healthcare: Yes - Code Status/Comfort Care Code Status: Full Code Physician Review: Patient Assessed, Agree with Above Assessment and Plan Time Spent Managing Pts Care (In Minutes): 48
--- NOTE | 2023-04-19 22:31 | RAD REPORT ---
EXAM DESCRIPTION: CT - Head C Spine Cap Wo Con - 04/19/2023 10:18 pm CLINICAL HISTORY: Trauma, head and neck injury. Chest, abdomen and pelvis pain. Headache;Mental status change;Dizziness COMPARISON: Head Brain Wo Cont dated 08/27/2018; Chest Single View dated 04/19/2023; Chest For Pe Maria Eugenia o dated 04/09/2019 TECHNIQUE: CT head without contrast. CT cervical spine without contrast with coronal and sagittal reformatted images. CT chest, abdomen and pelvis without contrast with coronal and sagittal reformatted images of [facility]. All CT scans are performed using dose optimization technique as appropriate and may include automated exposure control or mA/KV adjustment according to patient size. FINDINGS: CT HEAD WITHOUT CONTRAST: No intracranial hemorrhage, hydrocephalus or extra-axial fluid collection. Moderate generalized brain atrophy is present with moderate periventricular and deep white matter chronic microvascular ischemi c changes. No areas of brain edema or midline shift. The paranasal sinuses and mastoids are clear. The calvarium is intact. CT CERVICAL SPINE WITHOUT CONTRAST: No fracture or subluxation. Moderate lower cervical degenerative changes are present. The prevertebra l soft tissues are normal in thickness.Carotid atherosclerosis bilaterally. CT CHEST, ABDOMEN, PELVIS WITHOUT CONTRAST: NOTE: Lack of contrast is a significant limitation in the assessment of trauma related findings. Spec ifically, solid organ, vascular and bowel evaluation is significantly limited. Moderate bilateral ground-glass and alveolar lung opacities are present.No pneumothorax or pericardia l/pleural fluid. No evidence of intra-abdominal visceral injury, free fluid or free air is seen within the above detai led limitations. Fat containing moderate size right inguinal hernia is seen containing small section of colon. There i s no evidence of bowel obstruction related to this. No fractures. Mild anterior wedge compression deformity affects the lower thoracic level, favored to be chronic. IMPRESSION: Negative for acute traumatic findings within the above detailed limitations. There are moderate alveolar glass opacities in both lungs which may represent pulmonary edema or infe ction/pneumonia.
[2023-04-19 22:36] LABS: SARS-COV-2 RT PCR POSITIVE (NEGATIVE)
[2023-04-19] MEDS ORDERED: CEFTRIAXONE 1000 MG/VIAL ONE (22:38)
[2023-04-19] MEDS ORDERED: NA CHLORIDE 0.9% 50 ML ONE (22:39)
[2023-04-20 00:05] LABS: Specific Gravity 1.005 (1.005-1.030); Urine Bilirubin NEGATIVE (Negative); Urine Blood Negative (Negative); Urine Clarity Clear (Clear); Urine Color Colorless (Yellow); Urine Glucose NEGATIVE (Negative); Urine Protein NEGATIVE (Negative); Urine Urobilinogen Normal (Normal); Urine pH 7.5 (5.0-7.0)
[2023-04-20] MEDS ORDERED: ALPRAZOLAM 0.25 MG TABLET PO PRN (00:14)
[2023-04-20] MEDS: FUROSEMIDE 40 MG/4 ML VIAL IV SCH ×3 (01:00→16:42)
[2023-04-20 01:20] VITALS: BMI 19.1
[2023-04-20 07:26] LABS: Absolute Lymphocytes (CBC) 0.6 K/uL (0.7-4.9); Hematocrit 31.3 % (36.0-45.0); Lymphocytes % 8.8 % (15.3-44.8); MCV 79.8 fL (80-100); MPV 7.5 fL (7.6-11.3); Platelets 271 thou/uL (152-406); RBC Red Blood Cell Count 3.92 M/uL (3.86-4.86)
[2023-04-20 07:47] LABS: Albumin 3.1 g/dL (3.4-5.0); Bilirubin Total 0.4 mg/dL (0.2-1.0); Potassium 3.6 mEq/L (3.5-5.1); Protein, Total 7.7 g/dL (6.4-8.2)
[2023-04-20] MEDS: ENSURE ENLIVE 237 ML CAN PO SCH ×2 (08:21→21:00)
[2023-04-20] MEDS: HYDROCODONE/APAP 7.5/325 MG TAB PO SCH ×3 (09:00→21:37)
[2023-04-20] MEDS: ESTRADIOL 0.5 MG PO SCH (09:00)
[2023-04-20] MEDS: SPIRONOLACTONE 25 MG TABLET PO SCH (09:52)
[2023-04-20] MEDS: DOCUSATE NA 100 MG CAP PO SCH (09:53)
[2023-04-20] MEDS: dexAMETHasone 10 MG/ML VIAL IV SCH (09:53)
[2023-04-20] MEDS: AMIODARONE HCL 200 MG TAB PO SCH (09:53)
[2023-04-20] MEDS: POTASSIUM CL SA 10 MEQ TAB PO SCH (09:54)
[2023-04-20] MEDS: METOPROLOL TAR 50 MG TAB PO SCH ×2 (09:55→21:38)
[2023-04-20] MEDS: MULTIVITAMINS,THERAPEUT 1 TAB PO SCH (09:55)
[2023-04-20] MEDS: FLUOXETINE 20 MG CAP PO SCH (09:55)
--- NOTE | 2023-04-20 15:59 | P.PN ---
Subjective Date of Service: 04/20/23 Chief Complaint: SOB Subjective: No new changes, Improving Physical Examination - Vital Signs Temperature: 98.0 F Blood Pressure: 122/62 Pulse: 62 Respirations: 16 Pulse Ox (%): 95 - Physical Exam General: Alert HEENT: Atraumatic Neck: Supple Respiratory: Normal air movement Cardiovascular: Regular rate/rhythm, Normal S1 S2 Gastrointestinal: Soft and benign Musculoskeletal: No swelling Neurological: Normal speech - Studies Laboratory Data (last 24 hrs) 04/19/23 04/19/23 04/19/23 21:28 21:28 21:28 WBC 7.30 Hgb 9.3 L Hct 28.0 L Plt Count 237 PT 24.1 H INR 2.19 Sodium 130 L Potassium 4.2 BUN 23 H Creatinine 1.09 H Glucose 102 Magnesium 2.1 Total Bilirubin 0.4 AST 26 ALT 20 Alkaline Phosphatase 82 Lipase 41 Assessment And Plan - Plan Assessment and Plan - Problems (Diagnosis) (1) Acute diastolic CHF (congestive heart failure) Current Visit: No Status: Acute Plan: Elevated BNP Aggressive diuresis to be continued. (2) Atrial fibrillation Current Visit: No Status: Chronic Plan: History of paroxysmal A-fib Right now in sinus rhythm Monitor under telemetry. continue anticoagulation. Qualifiers: Atrial fibrillation type: longstanding persistent Qualified Code(s): I48.11 - Longstanding persistent atrial fibrillation (3) Depression Current Visit: No Status: Chronic Plan: Continue home medications and titrate as needed - Plan: Hyponatremia slightly improved at 132 today. we will follow daily levels. deemed due to CHF related issues. Acute hypoxic respiratory failure Oxygen supplementation We will try to wean down oxygen requirement as tolerated. Bronchodilators and steroids to be continued. Anemia of chronic disease Monitor CBC Transfuse as needed if hemoglobin is less than 7.0g/dL. Discharge Plan: Home Plan to discharge in: home in 24-48hrs. - Advance Directives Does patient have a Living Will: Yes Does patient have a Durable POA for Healthcare: Yes - Code Status/Comfort Care Code Status: Full Code Physician Review: Patient Assessed, Agree with Above Assessment and Plan
[2023-04-21] MEDS: FUROSEMIDE 40 MG/4 ML VIAL IV SCH ×2 (01:37→11:33)
[2023-04-21 08:49] VITALS: O2SAT 98
[2023-04-21] MEDS: METOPROLOL TAR 50 MG TAB PO SCH (09:00)
[2023-04-21] MEDS: ENSURE ENLIVE 237 ML CAN PO SCH (09:00)
[2023-04-21] MEDS: ESTRADIOL 0.5 MG PO SCH (09:00)
--- NOTE | 2023-04-21 10:55 | P.DS ---
Admission Date: 04/19/23 Discharge Date: 04/21/23 Disposition: ROUTINE DISCHARGE Discharge Condition: GOOD Reason for Admission: SOB Brief History of Present Illness: 87 yrs old Female with past medical history of hypertension depression, atrial fibrillation, CHF, anxiety, arthritis who presents to ER with complaints of cough and sob which started 2 to 3 days ago, progressively getting worse and was brought to ER . Denies any chest pain . No nausea vomiting or diarrhea Have subjective fever but not associated with any chills. Generalized body pain and malaise is present. Denies any dysuria. Shortness of breath worse with minimal exertion. Cough is productive with mucoid expectoration. Patient was assessed in the ER and was found to have COVID-positive and CHF exacerbation in the CT and x-ray chest and was admitted for further management . Hospital Course: she was started on IV steroid and diuretic therapy. She responded well to therapy with improvement in symptomatology and initially increased work of breathing improved significantly. She was continued on oxygen therapy and this was started at the form even at baseline of 4 L to 2 L/min. She responded well to supportive care and she was deemed stable for discharge home to continue with oral diuretic therapy, since she has COVID-19 disease persisted she was given a prescription of Paxlovid for 5 days. She will follow-up with her primary care doctor as scheduled Vital Signs/Physical Exam: Temp Pulse Resp BP Pulse Ox 97.5 F 54 16 114/60 98 04/21/23 08:00 04/21/23 08:00 04/21/23 08:00 04/21/23 08:00 04/21/23 08:00 General: Alert HEENT: Atraumatic Neck: Supple Respiratory: Normal air movement Cardiovascular: Regular rate/rhythm, Normal S1 S2 Gastrointestinal: Soft and benign Musculoskeletal: No swelling Neurological: Normal speech Laboratory Data at Discharge: WBC 6.60 thou/uL (4.3-10.9) 04/20/23 07:17 Hgb 10.1 g/dL (12.0-15.0) L D 04/20/23 07:17 Hct 31.3 % (36.0-45.0) L 04/20/23 07:17 Plt Count 271 thou/uL (152-406) 04/20/23 07:17 PT 24.1 SECONDS (9.5-12.5) H 04/19/23 21:28 INR 2.19 04/19/23 21:28 Sodium 132 mEq/L (136-145) L 04/20/23 07:17 Potassium 3.6 mEq/L (3.5-5.1) D 04/20/23 07:17 BUN 26 mg/dL (7-18) H 04/20/23 07:17 Creatinine 1.12 mg/dL (0.55-1.02) H 04/20/23 07:17 Glucose 104 mg/dL (74-106) 04/20/23 07:17 Magnesium 2.1 mg/dL (1.6-2.4) 04/19/23 21:28 Total Bilirubin 0.4 mg/dL (0.2-1.0) 04/20/23 07:17 AST 27 U/L (15-37) 04/20/23 07:17 ALT 20 U/L (13-56) 04/20/23 07:17 Alkaline Phosphatase 91 U/L (45-117) 04/20/23 07:17 Lipase 41 U/L (13-75) 04/19/23 21:28 Home Medications: Alprazolam [Xanax] 0.5 mg PO BID PRN 08/28/18 Amiodarone HCl [Cordarone*] 1 tab PO DAILY 08/28/18 Calcium Carb/Mag Ox/Zinc Sulf [Npyaiyr-Fabavljbg-Mlyn Tablet] 1 tab PO BID 08/28/18 Fluoxetine HCl 20 mg PO DAILY 08/28/18 Furosemide 40 mg PO DAILY 08/28/18 Hydrocodone 7.5/APAP 325 [[place] 7.5/325 mg*] 1 tab PO TID 08/28/18 estradioL [Estradiol] 0.5 mg PO DAILY 08/28/18 Docusate [Colace Cap*] 100 mg PO DAILY #30 cap 09/01/18 Ensure Enlive 237 ml PO BID #60 can 09/01/18 Multivitamin with Iron [Multivitamins with Iron] 1 each PO DAILY #30 tablet 09/01/18 Potassium Chloride 10 meq PO DAILY 04/09/19 Warfarin Sodium [Coumadin*] 3 mg PO DAILY 5 PM 04/09/19 Metoprolol Tartrate 25 mg PO BID #60 tablet 04/12/19 Spironolactone [Aldactone*] 25 mg PO DAILY #30 tab 04/12/19 Nirmatrelvir/Ritonavir [Paxlovid 150-100 mg Pack (Eua)] 1 each PO BID #10 04/21/23 New Medications: Nirmatrelvir/Ritonavir [Paxlovid 150-100 mg Pack (Eua)] 1 each PO BID #10 Diet: AHA Followup: NONE,NONE [Primary Care Provider] -
[2023-04-21] MEDS: FLUOXETINE 20 MG CAP PO SCH (11:31)
[2023-04-21] MEDS: MULTIVITAMINS,THERAPEUT 1 TAB PO SCH (11:31)
[2023-04-21] MEDS: DOCUSATE NA 100 MG CAP PO SCH (11:31)
[2023-04-21] MEDS: SPIRONOLACTONE 25 MG TABLET PO SCH (11:31)
[2023-04-21] MEDS: POTASSIUM CL SA 10 MEQ TAB PO SCH (11:32)
[2023-04-21] MEDS: dexAMETHasone 10 MG/ML VIAL IV SCH (11:32)
[2023-04-21] MEDS: AMIODARONE HCL 200 MG TAB PO SCH (11:32)
[2023-04-21] MEDS: HYDROCODONE/APAP 7.5/325 MG TAB PO SCH ×2 (11:34→15:37)
[2023-04-21 16:47] VITALS: BP 116/58; TEMP 98.3
== END 2023-04-21 16:59 | disposition home or self-care (01) | DRG 177 ==
LOC: ER 20:54 → ERHOLD 22:30 → 4TH 23:22
PROVIDERS: ADMIT Family Medicine; ATTEND Internal Medicine Nephrology
DX: U07.1 COVID-19 (principal); I50.33 Acute on chronic diastolic (congestive) heart failure; J96.01 Acute respiratory failure with hypoxia; Z68.1 Body mass index [BMI] 19.9 or less, adult; I48.11 Longstanding persistent atrial fibrillation; E87.1 Hypo-osmolality and hyponatremia; E66.9 Obesity, unspecified; I11.0 Hypertensive heart disease with heart failure; D63.8 Anemia in other chronic diseases classified elsewhere; F32.A Depression, unspecified; M19.90 Unspecified osteoarthritis, unspecified site; Z79.01 Long term (current) use of anticoagulants; Z79.899 Other long term (current) drug therapy
CPT/HCPCS: 0240U; 36415; 70450; 71045; 71250; 72125; 80048; 80053; 80076; 81003; 83605; 83690; 83735; 83880; 84484; 85025; 85610; 87040; 93005; 94760; 99285; J0696; J1100; J1940; J2270